=== PATIENT | male | born 1965 | race Caucasian/White ===

== ENCOUNTER 2019-04-14 20:18 | Emergency (ER) | payer OTHER ==
[~2019-04-14] VITALS: Ht 170.2 cm; Wt 158.8 kg
--- OUTSIDE RECORDS SUMMARY | ~2019-04-14 | XMS | Clinical Summary ---
Demographics + + + | Address | [address] | | | [place] [address] | + + + | Home Phone | | + + + | Preferred Language | Unknown | + + + | Marital Status | Single | + + + | Moravian Affiliation | 1028 | + + + | Race | Unknown | + + + | Ethnic Group | Unknown | + + + Author + + + | Author | [facility] | | | and [place] | + + + | Organization | [facility] | | | and [place] | + + + | Address | Unknown | + + + | Phone | Unavailable | + + + Support + + +---------+ + | Name | Relationship | Address | Phone | + + +---------+ + | Guadalupe Garner | ECON | Unknown | | + + +---------+ + Care Team Providers + +------+ + | Care It Infrastructure Specialist Name | Role | Phone | + +------+ + | No, Physician | PP | Unavailable | + +------+ + Allergies No Known Allergies Medications + + + +---------+------+------+-------+ | Medication | Sig | Dispensed | Refills | Star | End | Statu | | | | | | t | Date | s | | | | | | Date | | | + + + +---------+------+------+-------+ | | Take 1 tablet by | 25 | 0 | 10/0 | | Activ | | HYDROcodone-acetamin | mouth every 4 hours | tablet | | 5/20 | | e | | ophen (NORCO) 5-325 | as needed. | | | 16 | | | | mg per tablet | | | | | | | + + + +---------+------+------+-------+ | amoxicillin | Take 500 mg by mouth | | 0 | | | Activ | | (AMOXIL) 500 MG | 3 times daily. | | | | | e | | capsule | | | | | | | + + + +---------+------+------+-------+ Active Problems + + + | Problem | Noted Date | + + + | Preventative health care | 08/10/2016 | + + + + + | Overview: PSA DATE RESULTS | | 08/09/16 0.322 | + + + + + | Ureteral calculus, right | 07/27/2016 | + + + | Hydronephrosis, right | 07/27/2016 | + + + | Renal colic on right side | 07/27/2016 | + + + | H/O Kidney stones | 07/27/2016 | + + + | BMI 50.0-59.9 | 07/27/2016 | + + + | Class IV, BMI 50-59 | 07/27/2016 | + + + | Smoker - Daily | 07/27/2016 | + + + | MEHUL (obstructive sleep apnea) | | + + + | PPD positive | | + + + + + | Overview: INH for 6 months | + + +---------+---+ | Smoking | | +---------+---+ Family History + + +------+ + | Medical History | Relation | Name | Comments | + + +------+ + | Prostate cancer | Father | | | + + +------+ + | Hypertension | Mother | | | + + +------+ + | Gallstones | Sister | | | + + +------+ + | Other (see comment) | Sister | | esophageal atresia at corrected | + + +------+ + | Gallstones | Sister | | | + + +------+ + + +------+--------+ + | Relation | Name | Status | Comments | + +------+--------+ + | Brother | | Alive | | + +------+--------+ + | Daughter | | Alive | | + +------+--------+ + | Father | | Alive | | + +------+--------+ + | Mother | | Alive | | + +------+--------+ + | Sister | | Alive | | + +------+--------+ + | Sister | | Alive | | + +------+--------+ + | Son | | Alive | | + +------+--------+ + Social History + + + +--------+ [...] + +---------+ + | Alcohol Use | Drinks/We | oz/Week | Comments | | | ek | | | + + +---------+ + | No | 0 | 0.0 | | | | Standard | | | | | drinks or | | | | | | | | | | equivalen | | | | | t | | | + + +---------+ + + + + | Sex Assigned at | Date Recorded | | | | + + + | Not on file | | + + + + + + + | Job Start Date | Occupation | Industry | + + + + | Not on file | Not on file | Not on file | + + + + + + + + | Travel History | Travel Start | Travel End | + + + + + + | No recent travel history available. | + + Last Filed Vital Signs + + + + | Vital Sign | Reading | Time Taken | + + + + | Blood Pressure | 148/92 | 01/06/20175 PST | + + + + | Pulse | 105 | 01/06/20175 PST | + + + + | Temperature | 36.4 C (97.5 F) | 08/11/2016 164 PDT | + + + + | Respiratory Rate | 18 | 01/06/20171354 PST | + + + + | Oxygen Saturation | 95% | 01/06/20171354 PST | + + + + | Inhaled Oxygen | - | - | | Concentration | | | + + + + | Weight | 153 kg (337 lb 6.4 | 01/06/20171354 PST | | | oz) | | + + + + | Height | 167.6 cm (5' 6") | 01/06/20171354 PST | + + + + | Body Mass Index | 54.46 | 01/06/2017 1355 PST | + + + + Plan of Treatment + + + + + | Health Maintenance | Due Date | Last Done | Comments | + + + + + | Vaccine: | | | | | Dtap/Tdap/Td (1 - | 4 | | | | Tdap) | | | | + + + + + | Vaccine: Zoster (1 | | | | | of 2) | 5 | | | + + + + + | Vaccine: Influenza | | | | | (Season Ended) | 9 | | | + + + + + Implants + +-------+------+ +--------+--------+--------+ | Implanted | Type | Area | Manufacture | Device | Shelf | Model | | | | | r | | Expira | / | | | | | | Identi | tion | Serial | | | | | | fier | Date | / Lot | + +-------+------+ +--------+--------+--------+ | Stent Uro Unvrs Sft 6fr 28cm | Stent | | [place] | | 06/11/ | [id number] | | - [id number]: Qty: 1 | | | [employer] | | 2018 | / | | on 07/28/2016 by Claudette, | | | - [place] | | | /[id number] | | Andrae Simms MD | | | | | | 63 | + +-------+------+ +--------+--------+--------+ Results Not on filefrom Last 3 Months Insurance + +--------+ +--------+ +---------+--------+ | Payer | Benefi | Subscriber | Effect | Phone | Address | Type | | | t Plan | ID | tee | | | | | | / | | Dates | | | | | | Group | | | | | | + +--------+ +--------+ +---------+--------+ | [employer] | [employer] | [id number] | 01/06/20 | [phone] | | Medica | | MEDICAID HMO | HEALTH | | 16-Pre | 1 | | id | | | MDCD | | sent | | | | | | HMO [place] | | | | | | + +--------+ +--------+ +---------+--------+ + +--------+ +--------+ + + | Guarantor Name | Accoun | Relation to | Date | Phone | Billing Address | | | t Type | Patient | of | | | | | | | | | | + +--------+ +--------+ + + | Hemant Isidro | Person | Self | [birth year] | [address] | jahaira/Mark | | 1965 | [phone] | [place] [address] | | | joshua | | | 1 (Home) | | + +--------+ +--------+ + + Advance Directives Patient has advance care planning documents, and code status on file. For more information, please contact:[facility] [place] [address] + + + + + | Code Status | Date | Date | Comments | | | Activated | Inactivated | | + + + + + | Full Code | 08/11/2016 | 08/11/2016 | | | | 18:13 | 21:27 | | + + + + + + + + +---+ | | | | | + + + +---+ | Full Code | 07/27/2016 | 07/28/2016 | | | | 17:16 | 18:58 | | + + + +---+
--- OUTSIDE RECORDS SUMMARY | ~2019-04-14 | XMS | Clinical Summary ---
Demographics + + + | Address | [address] | | | [place] [address] | + + + | Home Phone | | + + + | Preferred Language | Unknown | + + + | Marital Status | Single | + + + | Latter-Day Affiliation | 1028 | + + + | Race | Unknown | + + + | Ethnic Group | Unknown | + + + Author + + + | Author | [facility] | | | and [place] | + + + | Organization | [facility] | | | and [place] | [...] Team Providers + +------+ + | Care Bus Repair Supervisor Name | Role | Phone | + [...] | | [place] | | 06/11/ | [id number] | | - [id number]: Qty: 1 | | | [employer] | | 2018 | / | | on 07/28/2016 by Claudette, | | | - [place] | | | /[id number] | | Andrae Simms MD | | [...] | [employer] | MODA | [id number] | 01/06/20 | [phone] | | Medica [...] | | 1965 | [phone] | [place] [address] | | | joshua | | | 1 (Home) | | + +--------+ +--------+ + + Advance Directives Patient has advance care planning documents, and code status on file. For more information, please contact:[facility] [place] [address] + + + + + | Code [...]
[2019-04-14] MEDS ORDERED: BACTRIM DS TAB1 EACH PO (20:41)
== END 2019-04-14 20:50 | disposition home or self-care (01) ==
LOC: ED 20:18
DX: L03.311 Cellulitis of abdominal wall (principal); Z87.442 Personal history of urinary calculi; F17.200 Nicotine dependence, unspecified, uncomplicated
CPT/HCPCS: 99283

== ENCOUNTER 2020-07-21 05:35 | Day surgery (SDC) | payer OTHER ==
--- NOTE | 2020-07-18 17:08 | NUR ---
DR. CARIAS NOTIFIED OF PT'S URINE CULTURE SAYING IT WAS LIKELY CONTAMINATING LOS. DR. CARIAS DOES NOT WANT A REPEAT URINE SAMPLE. NO NEW ORDERS.
[~2020-07-21] VITALS: Ht 170.2 cm; Wt 140.2 kg
[~2020-07-21 05:35] MED LIST: ASPIRIN81 MG PO; BACTRIM DS TAB1 EACH PO; CLOBETASOL PROP15 GM TOP; VENTOLIN HFA18 GM INH
--- NOTE | 2020-07-21 09:10 | NUR ---
07/21/20 0910 Doris Medeiros 0849 PT ARRIVED TO PACU WITH ORAL AIRWAY IN PLACE AND 6L VIA MASK IN PLACE. VSS. COURSE AIRWAY SOUND NOTED, RESP EVEN AND UNLABORED. PT NONAROUSABLE TO PAINFUL STIMULI 0902 PT WOKE TO PAINFUL STIMULI AND ORAL AIRWAY REMOVED, PT ENCOURAGED TO COUGH AND ABLE TO DO SO, PT CLEARED COURSE SOUND AND DENIES SOB. 0908 PT WAKES AND O2 MASK REMOVED. PT DENIES NAUSEA AND PAIN AND IS REORIENTED TO PACU. 0910 PT O2 SAT DECREASED TO 88% WHILE ASLEEP WITH SNORING. PT WAKES AND 2L NC PLACED, RN ENCOURAGES DEEP BREATHING AND COUGHING. O2 INCREASED TO MID 90S.
--- NOTE | 2020-07-21 09:26 | NUR ---
PT ARRIVES BACK TO DS RM 5 FROM PACU AWAKE AND ALERT. PT DENIES ANY NAUSEA AND RATES "DISCOMFORT" 2/10. PT STATES BEING HUNGRY, PROVIDED JELLO, CRACKERS AND ICED WATER. CALL LIGHT WITHIN REACH. DC CRITERIA EXPLAINED TO PT.
--- NOTE | 2020-07-21 09:35 | NUR ---
PT USES CALL LIGHT TO NOTIFY RN OF URGE TO VOID. PT SITS AT SIDE OF BED PRIOR TO STANDING, DENIES DIZZINESS OR NAUSEA. PT HAS STEADY GAIT TO BATHROOM, ABLE TO VOID QS WITH NO PROBLEMS. PT STATES "SOME STINGING" AFTER VOID, PROVIDED WET WIPES AND PERICARE PERFORMED. PT BACK IN BED, DECLINES SCD'S AND IS ENCOURAGED TO PUMP FEET. SANDWICH AND FRUIT DELIVERED, ICED WATER REFILLED AT THIS TIME. CALL LIGHT WITHIN REACH.
--- NOTE | 2020-07-21 09:45 | NUR ---
0945: PT TOLERATES 100% OF LUNCH WITHOUT NAUSEA. DC CRITERIA MET AT THIS TIME, PT SISTER NOTIFIED FOR SAFE RIDE HOME. PT DRESSES SELF. DC INSTRUCTIONS GIVEN, ALL QUESTIONS ADDRESSED. PAIN PRESCRIPTION PROVIDED IN DC PACKET. PT DC VIA WC TO SISTER AT [facility] ENTRANCE TO HOME.
[2020-07-21] MEDS ORDERED: PERCOCET 5-3251 EACH PO (10:16)
[2020-07-21] MEDS ORDERED: BACTRIM DS TAB1 EACH PO (10:16)
--- NOTE | 2020-07-22 10:43 | OR ---
[facility] [address] [place] [id number] Signed DATE OF OPERATION: 07/21/2020 SURGEON: Josue Carias MD DATE OF PROCEDURE: 07/21/2020 PREOPERATIVE DIAGNOSIS: Phimosis. POSTOPERATIVE DIAGNOSIS: Phimosis. NAME OF PROCEDURES: 1. Dorsal slit. 2. Circumcision revision. ANESTHESIA: General. ESTIMATED BLOOD LOSS: Minimal. COMPLICATIONS: None. SPECIMENS: None. DRAINS: None. INDICATIONS FOR PROCEDURE: Hemant is a very pleasant 55-year-old gentleman, who presented to me earlier this year with complaints of inability to retract the foreskin over his penis. He had also noticed changes to the head of the penis and it was seeking intervention. He was initially treated with topical clobetasol for lichen sclerosis, which mostly resolved quite nicely. He now presents today to undergo the second phase of his treatment, which is management of the phimosis. After discussing the risks and benefits of the procedure, the patient has presented today to undergo a dorsal slit procedure with or Electronically Signed By: JOSUE CARIAS MD 07/22/20 1043 PATIENT NAME: HEMANT WATTS OPERATIVE REPORT DATE OF : 65 REPORT #: [id number] PHYSICIAN: JOSUE CARIAS MD PCP: LEANDRO QUEVEDO REPORT IS CONFIDENTIAL AND NOT TO BE RELEASED WITHOUT AUTHORIZATION [address] [place], [place] [address] Signed without circumcision. OPERATIVE FINDINGS: 1. Inspection of the external genitalia revealed testicles that are descended bilaterally and are without any intratesticular masses. His foreskin is phimotic, and I am only able to see the patient's urethral meatus. The lichen sclerosis has resolved quite nicely, and there was only just some mild erythema associated with the glans penis. 2. Incidentally noted is a 4-5 cm area of cellulitis associated with an ingrown hair in the lower abdomen. I do not appreciate any overt fluctuance, however, this does appear to be developing small abscess. 3. The phimotic foreskin was incised at the 12 o'clock position, releasing the penis below. The dorsal skin of the penis was then reapproximated with some minor difficulty given the patient's condition. DESCRIPTION OF PROCEDURE: After informed consent was obtained, the patient was taken back to the operating room. He was transferred from the [facility] to the operating room table, where general anesthesia was induced. He was placed in the supine position. His genitalia were prepped and draped in standard sterile fashion. A penile block was then administered of 10 mL of 1% lidocaine without epinephrine. Inspection of the patient's abdomen and genitalia were then performed, please see above findings. A straight hemostat was then placed and clamped at the 12 o'clock position for approximately 30 seconds. The foreskin tissue was then crushed at the 12 o'clock position. A straight hemostat was then used to incise the crushed tissue, this was done twice, at which time I was able to deliver the penis from the phimotic foreskin. Betadine was then used to prep the penile skin. The residual dorsal foreskin was then reapproximated at the dorsal portion of the penis. There was not any additional skin that required excision, in fact the skin was reapproximated with some mild difficulty due to lack of reserve skin in the area. The flaps were mobilized just very slightly in order to reapproximate the edges. The edges of the penile skin were reapproximated using 3-0 Vicryl in a simple interrupted fashion. A couple of the sutures bearing most of the tension of the reapproximation were reinforced. The area was then thoroughly irrigated and hemostasis was achieved and maintained using Bovie electrocautery. Once all the skin was reapproximated, bacitracin was applied to the wound and the procedure was terminated. The patient tolerated the procedure well without any complication. He will now be transferred to the Postanesthesia Care Unit in stable condition. DISPOSITION: I discussed the details of today's procedure with the patient's sister and answered all of her questions. I also told her of the presence of a developing abscess on the patient's lower abdomen that appeared to be associated with about 4-5 cm of an area of Electronically Signed By: JOSUE CARIAS MD 07/22/20 1043 PATIENT NAME: HEMANT WATTS OPERATIVE REPORT DATE OF : 65 REPORT #: [id number] PHYSICIAN: JOSUE CARIAS MD PCP: LEANDRO QUEVEDO REPORT IS CONFIDENTIAL AND NOT TO BE RELEASED WITHOUT AUTHORIZATION [address] [address] Signed cellulitis. He will be started today on Bactrim double strength for a total of 10 days. Hopefully this will help with this issue, however, I told the patient's sister that he will need to speak with his primary care physician in the next 2-3 days if this area does not improve on its own because it could potentially require incision and drainage. The patient's sister verbalized understanding this today. Also, explained to his sister that he needs to avoid any heavy physical or exertional activity for the next week. He may apply ice to the area for 20 minutes every 2 hours. He was also given Percocet 5/325, dispense #30 as needed for pain. He was scheduled return to clinic in approximately three weeks for his first postoperative evaluation. MD LON Moraes/LEFTY /[id number] cc: HUGH Traylor Copies: LEANDRO QUEVEDO ~ Electronically Signed By: JOSUE CARIAS MD 07/22/20 1043 PATIENT NAME: HEMANT WATTS OPERATIVE REPORT DATE OF : 65 REPORT #: [id number] PHYSICIAN: JOSUE CARIAS MD PCP: LEANDRO QUEVEDO REPORT IS CONFIDENTIAL AND NOT TO BE RELEASED WITHOUT AUTHORIZATION
== END 2020-07-21 10:55 | disposition home or self-care (01) ==
LOC: DS 05:35
PROVIDERS: ATTEND Urology
PROC: 0VTTXZZ Resection of Prepuce, External Approach (ICD-10-PCS; principal; 2020-07-21 06:45)
DX: N47.1 Phimosis (principal); J44.9 Chronic obstructive pulmonary disease, unspecified; F32.9 Major depressive disorder, single episode, unspecified; G47.33 Obstructive sleep apnea (adult) (pediatric); F17.210 Nicotine dependence, cigarettes, uncomplicated; Z79.899 Other long term (current) drug therapy; Z79.82 Long term (current) use of aspirin
CPT/HCPCS: 94640; J0696; J1100; J1885; J2001; J2405; J2704; J3010; J7121

== ENCOUNTER 2020-08-27 16:17 | Emergency (ER) | payer OTHER ==
[~2020-08-27] VITALS: Ht 170.2 cm; Wt 140.2 kg
--- OUTSIDE RECORDS SUMMARY | ~2020-08-27 | XMS | Encounter Summary ---
Demographics + + + | Address | [address] | | | [place] [address] | + + + | Home Phone | | + + + | Preferred Language | Unknown | + + + | Marital Status | Single | + + + | Shinto Affiliation | 1028 | + + + | Race | White | + + + | Ethnic Group | Not or | + + + Author + + + | Author | [facility] | | | and [place] | + + + | Organization | [facility] | | | and [place] | + + + | Address | Unknown | + + + | Phone | Unavailable | + + + Support + + +---------+ + | Name | Relationship | Address | Phone | + + +---------+ + | Guadalupe Garner | ECON | Unknown | | + + +---------+ + Care Team Providers + +------+ + | Care Agronomy Teacher Name | Role | Phone | + +------+ + | No, Physician | PCP | Unavailable | + +------+ + Reason for Visit Auth/Cert +--------+--------+ + + + + | Status | Reason | Specialty | Diagnoses / | Referred By | Referred To | | | | | Procedures | Contact | Contact | +--------+--------+ + + + + | | | | Diagnoses | | | | | | | Calculus of | | | | | | | distal | | | | | | | right ureter | | | | | | | Calculus | | | | | | | of distal | | | | | | | right ureter | | | | | | | [N20.1] | | | | | | | Procedures | | | | | | | SC | | | | | | | CYSTO/URETER | | | | | | | O | | | | | | | W/LITHOTRIPS | | | | | | | Y &ITZEL | | | | | | | STENT INSRT | | | | | | | CYSTOSCOPY | | | | | | | URETEROSCOPY | | | | | | | W/ LASER | | | +--------+--------+ + + + + Encounter Details +--------+ + + + + | Date | Type | Department | Care Team | Description | +--------+ + + + + | 08/11/ | Hospital | [facility] | Andrae Wilkins, | | | 2016 | Encounter | MED [facility] XRAY [address] | MD Cornelio WHITFIELD | | | | | [place] | [place] | | | | | [place] [id number] | [id number] | | | | | [phone] | | | +--------+ + + + + Social History + + + +--------+ + | Tobacco Use | Types | Packs/Day | Years | Date | | | | | Used | | + + + +--------+ + | Current Every Day | Cigarettes | 1 | | Started: 07/27/1980 | | Smoker | | | | | + + + +--------+ + + +---+---+---+ | Smokeless Tobacco: | | | | | Never Used | | | | + +---+---+---+ + + +---------+ + | Alcohol Use | Drinks/Week | oz/Week | Comments | + + +---------+ + | No | 0 Standard drinks | 0.0 | | | | or equivalent | | | + + +---------+ + + + + | Sex Assigned at | Date Recorded | | | | + + + | Not on file | | + + + documented as of this encounter Functional Status + + + + | Functional Status | Response | Date of Assessment | + + + + | Are you deaf or do you have serious | No | 07/28/2016 | | difficulty hearing? | | | + + + + | Are you blind or do you have serious | No | 07/28/2016 | | difficulty seeing, even when wearing | | | | glasses? | | | + + + + | Do you have serious difficulty walking or | No | 07/28/2016 | | climbing stairs? (5 years old or older) | | | + + + + | Do you have difficulty dressing or bathing? | No | 07/28/2016 | | (5 years old or older) | | | + + + + | Because of a physical, mental, or emotional | No | 07/28/2016 | | condition, do you have difficulty doing | | | | errands alone such as visiting a doctor's | | | | office or shopping? [15 years old or | | | | older)] | | | + + + + + + + + | Cognitive Status | Response | Date of Assessment | + + + + | Because of a physical, mental, or emotional | No | 07/28/2016 | | condition, do you have serious difficulty | | | | concentrating, remembering, or making | | | | decisions? (5 years old or older) | | | + + + + documented as of this encounter Medications at Time of Discharge + + + +---------+ + + | Medication | Sig | Dispensed | Refills | Start | End Date | | | | | | Date | | + + + +---------+ + + | | Take 1 tablet by | 25 | 0 | 10/05/20 | | | HYDROcodone-acetamin | mouth every 4 hours | tablet | | 16 | | | ophen (NORCO) 5-325 | as needed. | | | | | | mg per tablet | | | | | | + + + +---------+ + + | | Take 1 tablet by | 8 | 0 | 08/11/20 | | | sulfamethoxazole-tri | mouth 2 times daily | tablet | | 16 | 6 | | methoprim (BACTRIM | for 4 days. | | | | | | DS) 800-160 mg per | | | | | | | tablet | | | | | | + + + +---------+ + + documented as of this encounter Plan of Treatment Not on filedocumented as of this encounter Procedures + +--------+ + + + | Procedure Name | Priori | Date/Time | Associated Diagnosis | Comments | | | ty | | | | + +--------+ + + + | FL PYELOGRAM | Routin | 08/11/2016 | | Results for this | | RETROGRADE | e | 5:47 PM | | procedure are in the | | | | PDT | | results section. | + +--------+ + + + documented in this encounter Results FL Pyelogram Retrograde (08/11/2016 5:47 PM PDT) + + | Specimen | + + | | + + + + + | Narrative | Performed At | + + + | EXAM: FL PYELOGRAM RETROGRADE HISTORY: intra op | [facility] | | COMPARISON: None. TECHNIQUE: Review of 2 digital intraoperative | | | spot images obtained during retrograde pyelogram by Dr. Cordero. | | | FINDINGS: Images demonstrate cannulation of the right ureter. Please | | | see operative report for further details. A total of 21 seconds | | | of fluoroscopy time was used during the procedure. IMPRESSION - | | | Review of intraoperative digital spot images as noted above. Please | | | see operative report for further details. CRITICAL VALUE: No | | | Dictated and Signed by: Arsalan Olmedo MD Electronically signed: | | | 08/12/2016 8:55 AM | | + + + + + | Procedure Note | + + | Chris, Rad Results In - 08/12/2016 8:58 AM PDT EXAM: FL PYELOGRAM RETROGRADE | | | | HISTORY: intra op | | | | COMPARISON: None. | | | | TECHNIQUE: Review of 2 digital intraoperative spot images obtained during | | retrograde pyelogram by Dr. Cordero. | | | | FINDINGS: | | Images demonstrate cannulation of the right ureter. Please see operative report | | for further details. | | | | A total of 21 seconds of fluoroscopy time was used during the procedure. | | | | IMPRESSION - | | Review of intraoperative digital spot images as noted above. Please see | | operative report for further details. | | | | CRITICAL VALUE: No | | | | Dictated and Signed by: Arsalan Olmedo MD | | Electronically signed: 08/12/2016 8:55 AM | + + + +---------+ + + | Performing | Address | City/State/Zipcode | Phone Number | | Organization | | | | + +---------+ + + | [facility] | | | | + +---------+ + + documented in this encounter Visit Diagnoses Not on filedocumented in this encounter"
--- OUTSIDE RECORDS SUMMARY | ~2020-08-27 | XMS | Encounter Summary ---
Demographics + + + | Address | [address] | | | [place] [address] | + + + | Home Phone | | + + + | Preferred Language | Unknown | + + + | Marital Status | Single | + + + | Uatsdin Affiliation | 1028 | + + + | Race | White | + + + | Ethnic Group | Not or | + + + Author + + + | Author | [facility] | | | and [place] | + + + | Organization | [facility] | | | [...] Team Providers + +------+ + | Care Toy Mechanic Name | Role | Phone | + +------+ + | No, Physician | PCP | Unavailable | + +------+ + Reason for Referral Evaluate & Treat (Routine) +--------+ + + + + + | Status | Reason | Specialty | Diagnoses / | Referred By | Referred To | | | | | Procedures | Contact | Contact | +--------+ + + + + + | Closed | Specialty | Urology | Diagnoses | Claudette, | Claudette, | | | Services | | Right | Andrae Simms MD | Andrae Simms MD | | | Required | | ureteral | [address] | [address] | | | | | calculus | [address]VE [place] | [place] | | | | | Procedures | [place] | [place] | | | | | [place] | [address] | [address] Phone: | | | | | CYSTO/URETER | Phone: | [phone] | | | | | O | [phone] | Fax: | | | | | W/LITHOTRIPS | Fax: | [phone] | | | | | Y &INDWELL | [phone] | | | | | | STENT INSRT | | | +--------+ + + + + + Reason for Visit +--------+--------+ + | Reason | Onset | Comments | | | Date | | +--------+--------+ + | Other | 07/30/ | Schedule surgery | | | 2015 | | +--------+--------+ + Encounter Details +--------+ + + + + | Date | Type | Department | Care Team | Description | +--------+ + + + + | 07/30/ | Telephone | [facility] | Andrae Wilkins, | Other (Schedule | | 2016 | | [address] | MD [address] | surgery) | | | | [place], [place] | [place] | | | | | [address] | [address] | | | | | [phone] | | | +--------+ + + + [...] + + documented as of this encounter Miscellaneous Notes Telephone Encounter - Cassi Toledo RN - 07/30/2016 8:51 AM PDTPatient scheduled for surgery on 08/11/16 with a pre-op on 08/02/16. documented in this encounter Plan of Treatment + + +--------+ + + | Name | Type | Priori | Associated Diagnoses | Order Schedule | | | | ty | | | + + +--------+ + + | Ambulatory referral | Outpatient | Routin | Right ureteral | Expected: | | to Urology | Referral | e | calculus | 08/11/2016, Expires: | | | | | | 08/18/2016 | + + +--------+ + + documented as of this encounter Results XR Abdomen AP (08/02/2016 9:09 AM PDT) + + | Specimen | + + | | + + + + + | Narrative | Performed At | + + + | EXAM: XR ABDOMEN 1 VW HISTORY: Right ureteral calculus | [facility] | | TECHNIQUE: Supine view of the abdomen COMPARISON: 07/28/2016 | [facility] | | FINDINGS: Interval placement of right ureteral stent in expected | [facility] | | position. Stable position of proximal right ureteral calculus. | - IMAGING | | Nonspecific, nonobstructive bowel gas pattern. No abnormal | | | calcifications. No acute osseous abnormalities. IMPRESSION - 1. | | | Nonspecific, nonobstructive bowel gas pattern. 2. Interval | | | placement of right ureteral stent in expected position. Stable | | | position of proximal right ureteral calculus. CRITICAL VALUE: No | | | Dictated and Signed by: Arsalan Olmedo MD Electronically signed: | | | 08/02/2016 9:49 AM | | + + + + + | Procedure Note | + + | Chris, Rad Results In - 08/02/2016 7:05 PM PDT EXAM: XR ABDOMEN 1 VW | | | | HISTORY: Right ureteral calculus | | | | TECHNIQUE: Supine view of the abdomen | | | | COMPARISON: 07/28/2016 | | | | FINDINGS: | | Interval placement of right ureteral stent in expected position. Stable position | | of proximal right ureteral calculus. | | Nonspecific, nonobstructive bowel gas pattern. No abnormal calcifications. | | No acute osseous abnormalities. | | | | IMPRESSION - | | 1. Nonspecific, nonobstructive bowel gas pattern. | | 2. Interval placement of right ureteral stent in expected position. Stable | | position of proximal right ureteral calculus. | | | | CRITICAL VALUE: No | | | | Dictated and Signed by: Arsalan Olmedo MD | | Electronically signed: 08/02/2016 9:49 AM | + + + + + + + | Performing | Address | City/State/Zipcode | Phone Number | | Organization | | | | + + + + + | [facility] | [address] | [place] | [phone] | | [facility] | | [address] | | | - IMAGING | | | | + + + + + documented in this encounter Visit Diagnoses + + | Diagnosis | + + | Right ureteral calculus - Primary Calculus of ureter | + + documented in this encounter"
--- OUTSIDE RECORDS SUMMARY | ~2020-08-27 | XMS | Encounter Summary ---
Demographics + + + | Address | [address] | | | [place] [address] | + + + | Home Phone | | + + + | Preferred Language | Unknown | + + + | Marital Status | Single | + + + | Muslim Affiliation | 1028 | + + + | Race | White | + + + | Ethnic Group | Not or | + + + Author + + + | Author | [facility] | | | and [place] | + + + | Organization | [facility] | | | [...] Team Providers + +------+ + | Care Screen Writer Name | Role | Phone | + +------+ + | No, Physician | PCP | Unavailable | + +------+ + Reason for Visit Evaluate & Treat (Routine) +--------+ + + + + + | Status | Reason | Specialty | Diagnoses / | Referred By | Referred To | | | | | Procedures | Contact | Contact | +--------+ + + + + + | Closed | Specialty | Sleep | Diagnoses | Ayesha, | Fredrick, | | | Services | Medicine | Nocturnal | Andrae Simms MD | Mitchell Kilgore | | | Required | | hypoxia | [address] | MD [address] | | | | | Procedures | [address] [place] | [facility] | | | | | 01/20> PEND | [place], [place] | [place] | | | | | RETRO | [address] | [place] | | | | | REFERRAL FOR | Phone: | [phone] Phone: | | | | | DOS | [phone] | [phone] | | | | | 01/06/17- | Fax: | Fax: | | | | | ELIANA / | [phone] | [phone] | | | | | AYESHA | | | | | | | OFFICE | | | | | | | NEEDS TO | | | | | | | REQUEST | | | +--------+ + + + + + Encounter Details +--------+---------+ + + + | Date | Type | Department | Care Team | Description | +--------+---------+ + + + | 11/16/ | Office | [facility] [place] [facility] | Mitchell Alcala | NO SHOW (Primary Dx) | | 2017 | Visit | SLEEP DISORDER [address] | MD [address] | | | | | [address] [place] | [address] [place] | | | | | [place] [address] | [place] [address] | | | | | [phone] | [phone] | | | | | | | | +--------+---------+ + + + Social History + + [...] + + documented as of this encounter Progress Notes Mitchell Alcala Jr., MD - 11/16/2016 8:36 AM PSTThis patient was a no-show for a 1 hour [facility] medicine consultation. He did not call to cancel and will not be rescheduled without r eferral from a primary care provider. documented in th is encounter Plan of Treatment Not on filedocumented as of this encounter Visit Diagnoses + + | Diagnosis | + + | No Show - Primary Code used for vists where the patient is not seen | + + documented in this encounter"
--- OUTSIDE RECORDS SUMMARY | ~2020-08-27 | XMS | Encounter Summary ---
Demographics + + + | Address | [address] | | | [place] [address] | + + + | Home Phone | | + + + | Preferred Language | Unknown | + + + | Marital Status | Single | + + + | Cheondoism Affiliation | [id number] | + + + | Race | White | + + + | Ethnic Group | Not or | + + + Author + + + | Author | [facility] | | | and [place] | + + + | Organization | [facility] | | | [...] Team Providers + +------+ + | Care Warehouse Selector Name | Role | Phone | + +------+ + | No, Physician | PCP | Unavailable | + +------+ + Reason for Visit + + + | Reason | Comments | + + + | Nephrolithiasis | | + + + Evaluate & Treat (Routine) +--------+--------+ + + + + | Status | Reason | Specialty | Diagnoses / | Referred By | Referred To | | | | | Procedures | Contact | Contact | +--------+--------+ + + + + | Closed | | Urology | Diagnoses | | [place], | | | | | Ureteral | Physicians-[facility] | Andrae Simms MD | | | | | stone NEW/R | [place], [place] | [address] | | | | | URETERAL | | [place] | | | | | STONE | | [place], [place] | | | | | Procedures | | [id number] Phone: | | | | | NEW PATIENT | | [phone] | | | | | | | Fax: | | | | | | | [phone] | +--------+--------+ + + + + Encounter Details +--------+---------+ + + + | Date | Type | Department | Care Team | Description | +--------+---------+ + + + | 08/02/ | Office | [facility] | Andrae Wilkins, | Right ureteral | | 2016 | Visit | [address] | [address] | calculus (Primary | | | | [place], [place] | [place], [place] | Dx); BMI 50.0-59.9, | | | | [address] | [id number] | adult (HCC); | | | | [phone] | | Nocturnal hypoxia | +--------+---------+ + + + Social History [...] + + documented as of this encounter Last Filed Vital Signs + + + + + | Vital Sign | Reading | Time Taken | Comments | + + + + + | Blood Pressure | 126/68 | 08/02/2016 10:06 AM | | | | | PDT | | + + + + + | Pulse | 80 | 08/02/2016 10:06 AM | | | | | PDT | | + + + + + | Temperature | - | - | | + + + + + | Respiratory Rate | 18 | 08/02/2016 10:06 AM | | | | | PDT | | + + + + + | Oxygen Saturation | - | - | | + + + + + | Inhaled Oxygen | - | - | | | Concentration | | | | + + + + + | Weight | 145.3 kg (320 lb 6.4 | 08/02/2016 10:06 AM | | | | oz) | PDT | | + + + + + | Height | - | - | | + + + + + | Body Mass Index | 50.18 | 07/27/2016 5:37 PM | | | | | PDT | | + + + + + documented in this encounter Functional Status + + + [...] + + documented as of this encounter Patient Instructions Patient Instructions Cassi Toledo RN - 08/02/2016 9:41 AM PDTPreoperative Instructi ons Your surgery with Dr. Andrae Wilkins has been scheduled for August 11, 2016 at 1:00 PM at [facility]. [facility] no later than 11:30 AM. REMEMBER: NOTHING TO EAT OR DRINK AFTER MIDNIGHT August 10, 2016 except with a sip of water. NO ASPIRIN OR ASPIRIN PRODUCTS ONE WEEK PRIOR TO SURGERY. Tylenol and Advil are OK. You will need to get the following testing done prior to surgery: CBC, BMP, UA Call us at [phone] with any questions. [x] Pain management booklet provided to patient. documented in this encounter Progress Notes Andrae Wilkins MD - 08/02/2016 9:40 AM PDTFormatting of this note might be different fro m the original. Hemant is a 51 y.o. male patient being seen today for follow up of kidney stones. CC: 7 mm proximal right ureteral calculus HPI: Hemant experienced right renal colic on 07/25/2016. He was eventually evaluated at [facility] where CT imaging demonstrated a 7 mm stone in the proximal right ureter at the UPJ with hydronephrosis. He underwent cystoscopy with right ureteral stent placement o n 07/28/2016. During this hospitalization, he was noted to have nocturnal hypoxemia with O2 sats of appro ximately 84% while sleeping on room air. I prescribed oxygen at discharge, but he reports t hat his insurance would not pay for it, since the prescription did not come from a primary c are provider. He reports that he has not had any renal colic since his discharge. He has mild discomfort associated with his ureteral stent, and mild irritative voiding symptoms, but he has not nguyen d recurrence of his renal colic. He denies any fever or chills or nausea or vomiting. He states that he had a "cold" with r hinorrhea last week, but denies a sore throat or shortness breath or cough or hemoptysis. He reports a prior history of a kidney stone which passed spontaneously about 15 years ago. He reports that his postoperative dysuria and hematuria has resolved. He denies any urinar y tract infections. He denies any changes in his bowel habits. He denies any hematochezia or melena. He reports a 7 pound weight loss in the past 2 weeks, otherwise, 10 point review of systems is negative. Over 25 minute encounter with Hemant today, over 50% of this time spent counseling regarding his large proximal right ureteral calculus, and treatment options available for his stone, including medical and surgical options, including nontreatment, and dietary recommendations to reduce his risk of stones. Past Medical History He has a past medical history of High cholesterol and Kidney stones. Past Surgical History He has past surgical history that includes Cystoscopy Insertion/Removal Stent/Stone (Right, 07/28/2016). Family History: His family history includes Gallstones in his sister and sister; Hypertension in his mother ; Prostate cancer in his father. Social History: He reports that he has been smoking Cigarettes. He started smoking about 36 years ago. He has been smoking about 1.00 pack per day. He has never used smokeless tobacco. He reports th at he uses illicit drugs (Marijuana). He reports that he does not drink alcohol. No Known Allergies Medications: Outpatient Encounter Prescriptions as of 08/02/2016 Medication Sig Dispense Refill HYDROcodone-acetaminophen (NORCO) 5-325 mg per tablet Take 1-2 tablets by mouth every 4 hours as needed for Pain (Pain). 25 tablet 0 No facility-administered encounter medications on file as of 08/02/2016. PHYSICAL EXAM Vitals: BP 126/68 mmHg | Pulse 80 | Resp 18 | Wt 145.332 kg (320 lb 6.4 oz) General: Awake, alert, in no acute distress. Speech is fluent. Appears to be stated age. Cheerful, smiles readily. Neck: Supple; no lymphadenopathy. HENT: Atraumatic, external ears normal, nose normal, oropharynx moist, no pharyngeal exudat es. Lungs: Mildly tachypneic with exertion. Clear to auscultation bilaterally. Heart: Normal rate, normal rhythm, no murmurs, no gallops, no rubs. Chest: No rib or bony tenderness. Back: No CVA tenderness. Abdomen: Soft, nontender, nondistended, morbidly obese, bowel tones normal active, no hepa tosplenomegaly. No masses, but examination markedly limited by his girth. No guarding; olesya gn. Bladder nondistended. Large pannus, with vitiligo changes. Extremities: Trace ankle edema bilaterally. Hips and long bones nontender to fist percussi on. Neuro: Awake, alert, oriented x3. Normal station and slow gait. Psychiatric: Mood and affect are normal. Normal judgment. Skin: Warm and dry, no erythematous rash. Genitalia: Penis is obscured by a large suprapubic fat pad. Severe scarring of the foresk in, with phimosis. Foreskin appears chronically inflamed. Vitiligo changes of scrotum. No testicular or epididymal masses or nodules or lesion or tenderness. DIAGNOSTIC DATA: CT imaging 07/27/2016 from [facility] demonstrates a 7.4 millimeter stone at the right UPJ with mild right hydronephrosis. No additional renal or ureteral calculi are visualized on either side. CBC 07/27/2016 shows WBC 10.1, hemoglobin 14.6, hematocrit 46.9, platelets 310. Chemistry panel 07/27/2016 demonstrates creatinine 0.93, BUN 14, potassium 3.9, sodium 137, chloride 104, CO2 25, calcium 9.2, normal liver function testing. Urinalysis 07/27/2016 shows 30 RBC, 15 WBC, no epithelial cells, 1+ bacteria. KUB 08/02/2016. (no radiology report yet. Image shown to patient) Lab Results Component Value Date CREA 1.03 08/02/2016 BUN 18 08/02/2016 NA 135* 08/02/2016 K 4.6 08/02/2016 CL 100 08/02/2016 CO2 26 08/02/2016 Lab Results Component Value Date CALCIUM 9.7 08/02/2016 EKG 07/28/2016: Normal sinus rhythm Incomplete right bundle branch block Borderline ECG No previous ECGs available Confirmed by JOE BAKER, GREGORIA ([id number]) on 07/28/2016 9:32:23 AM IMPRESSION: 1. 7.4 mm proximal right ureteral calculus. 2. Right hydronephrosis. 3. Status post right ureteral stent placement 07/28/2016. 4. Morbid obesity. 5. Postcircumcision phimotic foreskin deformity. 6. Nocturnal hypoxia. Sleep apnea is strongly suspected. 7. Incomplete right bundle branch block. PLAN: Oxygen for use at home at night was prescribed at his discharge, but he tells me that his i nsurance would not approve it since the prescription did not come from a primary care provid er. He needs a referral to the sleep center for a sleep consultation and sleep study. Please i nitiate referral. Obtain final urine culture testing results from [facility] 07/27/2016. I emphasized to Hemant that he absolutely must establish care with a primary care provider A [facility] for routine health maintenance. Weight loss is again strongly encouraged. I gave Hemant a pamphlet describing kidney stones and treatment options available, and we re viewed this again together. His body mass index is much too robust to allow PCNL or ESWL. We discussed performing ureteroscopy with laser lithotripsy. I gave Hemant a pamphlet describing kidney stones and the various treatment options availabl e, which we reviewed together. We discussed performing ESWL vs ureteroscopy with laser lith otripsy vs PCNL (percutaneous nephrostolithotomy) vs seeking a second opinion vs doing nothi ng. After a lengthy discussion, he elects to proceed with ureteroscopy with laser lithotripsy. The risks, benefits, and alternatives of cystoscopy, and right ureteroscopy with laser lith otripsy (and possible stone extraction), and right ureteral stent replacement are discussed with Hemant in detail. I told him that this procedure may not render him stone free, necess itating additional procedures in the future. Risks are to include, but are not limited to bleeding, pain, infection, failure of the proc edure, inability to retrieve or remove or fragment the stone, failure to diagnose, ureteral injury, ureteral perforation, ureteral avulsion with its severe sequelae of damage to the ki dney or need for subsequent surgical corrective procedures, and even potential loss of the k idney, potential need for additional procedures, inherent irritability and discomfort associ ated with a ureteral stent, inherent risks of any surgical procedure and anesthesia includin g DVT, PE, OR, CVA, and even . Hemant indicates his understanding, and indicates a desire to proceed as outlined. No guara ntees are given or implied. A surgical date is chosen. Hemant is given appropriate written and verbal preoperative instr uctions. I asked Hemant to notify me if there were any difficulties voiding, or UTI symptoms, or flan k pain, or for any questions or concerns whatsoever. I implored him to establish care with a PCP [facility]. We discussed the adverse sequelae associ ated with untreated sleep apnea. This document was generated in part using voice recognition software. Although I have atte mpted to edit the content, I have not thoroughly proofread this note, and metal bench patternmaker erro rs may occur. documented in this en counter Plan of Treatment Not on filedocumented as of this encounter Procedures + +--------+ + + + | Procedure Name | Priori | Date/Time | Associated Diagnosis | Comments | | | ty | | | | + +--------+ + + + | LABS - EXTERNAL SCAN | | 08/09/2016 | | Results for this | | | | 12:00 AM | | procedure are in the | | | | PDT | | results section. | + +--------+ + + + | LABS - EXTERNAL SCAN | | 07/30/2016 | | Results for this | | | | 12:00 AM | | procedure are in the | | | | PDT | | results section. | + +--------+ + + + | IMAGING REPORT - | | 07/27/2016 | | Results for this | | EXTERNAL SCAN | | 12:00 AM | | procedure are in the | | | | PDT | | results section. | + +--------+ + + + documented in this encounter Results LABS - EXTERNAL SCAN (08/09/2016 12:00 AM PDT) + + + | Narrative | Performed At | + + + | Ordered by an | | | unspecified provider. | | + + + Urinalysis, Reflex Microscopic and/or Culture (08/02/2016 11:46 AM PDT) + + + + + + | Component | Value | Ref Range | Performed | Pathologist | | | | | At | Signature | + + + + + + | Color, | Yellow | Light Yellow, | [facility] | | | Urine | | Yellow, Straw | [facility] | | | | | | [facility] | | | | | | [facility] - | | | | | | LABORATORY | | + + + + + + | Clarity, | Clear | Clear | [facility] | | | Urine | | | [facility] | | | | | | [facility] | | | | | | [facility] - | | | | | | LABORATORY | | + + + + + + | pH, Urine | 7.0 | 5.0 - 8.0 | [facility] | | | | | | [facility] | | | | | | [facility] | | | | | | [facility] - | | | | | | LABORATORY | | + + + + + + | Specific | 1.005 | 1.001 - 1.030 | [facility] | | | [place], | | | [facility] | | | Urine | | | MEDICAL | | | | | | CENTER - | | | | | | LABORATORY | | + + + + + + | Protein, | 30 mg/dL (A) | Negative | [facility] | | | Urine | | | [facility] | | | | | | [facility] | | | | | | CENTER - | | | | | | LABORATORY | | + + + + + + | Blood, | Trace (A) | Negative | [facility] | | | Urine | | | [facility] | | | | | | [facility] | | | | | | C[facility] - | | | | | | LABORATORY | | + + + + + + | Glucose, | Negative | Negative | [facility] | | | Urine | | | [facility] | | | | | | [facility] | | | | | | CENTER - | | | | | | LABORATORY | | + + + + + + | Ketones, | Negative | Negative | [facility] | | | Urine | | | [facility] | | | | | | [facility] | | | | | | [facility] - | | | | | | LABORATORY | | + + + + + + | Bilirubin, | Negative | Negative | [facility] | | | Urine | | | [facility] | | | | | | [facility] | | | | | | CENTER - | | | | | | LABORATORY | | + + + + + + | Nitrite, | Negative | Negative | [facility] | | | Urine | | | [facility] | | | | | | [facility] | | | | | | CENTER - | | | | | | LABORATORY | | + + + + + + | Leukocyte | Small (A) | Negative | [facility] | | | Esterase, | | | [facility] | | | Urine | | | MEDICAL | | | | | | CENTER - | | | | | | LABORATORY | | + + + + + + | Urobilinoge | Negative | 0.2 mg/dL, 1.0 | [facility] | | | n, Urine | | mg/dL, Negative | [facility] | | | | | | [facility] | | | | | | C[facility] - | | | | | | LABORATORY | | + + + + + + | White Blood | 2-5 (A) | 0 - 2 /HPF | [facility] | | | Cells, | | | [facility] | | | Urine | | | MEDICAL | | | | | | CENTER - | | | | | | LABORATORY | | + + + + + + | Red Blood | 15-25 (A) | 0 - 2 /HPF | [facility] | | | Cells, | | | [facility] | | | Urine | | | MEDICAL | | | | | | CENTER - | | | | | | LABORATORY | | + + + + + + | Budding | Few (A) | Negative | [facility] | | | Yeast, | | | [facility] | | | Urine | | | MEDICAL | | | | | | CENTER - | | | | | | LABORATORY | | + + + + + + | Urine | Urine Culture Set Up | | [facility] | | | Comment | | | [facility] | | | | | | [facility] | | | | | | C[facility] - | | | | | | LABORATORY | | + + + + + + + + | Specimen | + + | Urine - Urine | | specimen (specimen) | + + + + + | Narrative | Performed At | + + + | Microscopic performed on uncentrifuged urine due to low sample | [facility] | | volume | [facility] | | | [facility] | | | - LABORATORY | + + + + + + + + | Performing | Address | City/State/Zipcode | Phone Number | | Organization | | | | + + + + + | [facility] | [address] | [place] | [phone] | | [facility] | | [address] | | | - LABORATORY | | | | + + + + + Basic Metabolic Panel (08/02/2016 11:04 AM PDT) + + + + + + | Component | Value | Ref Range | Performed | Pathologist | | | | | At | Signature | + + + + + + | Na | 135 (L) | 136 - 149 | [facility] | | | | | mmol/L | [facility] | | | | | | [facility] | | | | | | CENTER - | | | | | | LABORATORY | | + + + + + + | K | 4.6 | 3.5 - 5.1 | [facility] | | | | | mmol/L | [facility] | | | | | | MEDICAL | | | | | | CENTER - | | | | | | LABORATORY | | + + + + + + | Cl | 100 | 98 - 109 mmol/L | [facility] | | | | | | [facility] | | | | | | MEDICAL | | | | | | CENTER - | | | | | | LABORATORY | | + + + + + + | CO2 | 26 | 24 - 31 mmol/L | [facility] | | | | | | [facility] | | | | | | [facility]ICAL | | | | | | CENTER - | | | | | | LABORATORY | | + + + + + + | Anion Gap | 9 | 3 - 16 mmol/L | [facility] | | | | | | [facility] | | | | | | [facility] | | | | | | CENTER - | | | | | | LABORATORY | | + + + + + + | Glucose | 93 | 70 - 109 mg/dL | [facility] | | | | | | [facility] | | | | | | [facility] | | | | | | CENTER - | | | | | | LABORATORY | | + + + + + + | BUN | 18 | 7 - 18 mg/dL | [facility] | | | | | | [facility] | | | | | | [facility] | | | | | | C[facility] - | | | | | | LABORATORY | | + + + + + + | Creatinine | 1.03 | 0.60 - 1.30 | [facility] | | | | | mg/dL | [facility] | | | | | | [facility] | | | | | | C[facility] - | | | | | | LABORATORY | | + + + + + + | eGFR, | >60Comment: GLOMERULAR | >=60 | [facility] | | | non- | FILTRATION | mL/min/1.73m2 | [facility] | | | [place] | RATE,ESTIMATED | | MEDICAL | | | | mL/min/1.66p7Ucej than | | CENTER - | | | | 60 Chronic kidney | | LABORATORY | | | | disease,if found over a | | | | | | 3-month period.Less than | | | | | | 15 Kidney failureFor | | | | | | | | | | | | Americans,multiply the | | | | | | calculated GFR by 1.21. | | | | | | | | | | + + + + + + | Calcium | 9.7 | 8.3 - 10.5 | [facility] | | | | | mg/dL | [facility] | | | | | | MEDICAL | | | | | | CENTER - | | | | | | LABORATORY | | + + + + + + | BUN/Creatin | 17.5 | | [facility] | | | ine Ratio | | | [facility] | | | | | | MEDICAL | | | | | | CENTER - | | | | | | LABORATORY | | + + + + + + + + | Specimen | + + | Blood | + + + + + + + | Performing | Address | City/State/Zipcode | Phone Number | | Organization | | | | + + + + + | [facility] | [address] | [place] | [phone] | | [facility] | | [address] | | | - LABORATORY | | | | + + + + + LABS - EXTERNAL SCAN (07/30/2016 12:00 AM PDT) + + + | Narrative | Performed At | + + + | Ordered by an | | | unspecified provider. | | + + + IMAGING REPORT - EXTERNAL SCAN (07/27/2016 12:00 AM PDT) + + + | Narrative | Performed At | + + + | Ordered by an | | | unspecified provider. | | + + + documented in this encounter Visit Diagnoses + + | Diagnosis | + + | Right ureteral calculus - Primary Calculus of ureter | + + | BMI 50.0-59.9, adult (HCC) Body Mass Index 50.0-59.9, adult | + + | Nocturnal hypoxia Hypoxemia | + + documented in this encounter
--- OUTSIDE RECORDS SUMMARY | ~2020-08-27 | XMS | Encounter Summary ---
Demographics + + + | Address | [address] | | | [place] [address] | + + + | Home Phone | | + + + | Preferred Language | Unknown | + + + | Marital Status | Single | + + + | Latter Day Affiliation | 1028 | + + + | Race | White | + + + | Ethnic Group | Not or | + + + Author + + + | Author | [facility] | | | and [place] | + + + | Organization | [facility] | | | and [...] Team Providers + +------+ + | Care Surface Supply Breathing Apparatus Name | Role | Phone | + [...] | | | | | | | [place] | | | | | | | [...] + + + + | 08/11/ | Anesthesia | NORA SHAH | Gloria Beth, | | | 2016 | Event | [facility] | DO [address] | | | | | [address] | [place] | | | | | [place] | [phone] | | | | | [address] | | | | | | [phone] | Miles Romero MD | | | | | | [address] | | | | | | [place] | | | | | | [phone] | | | | | | | | +--------+ + + + + Anesthesia Record + + + + + | Procedure Name | Responsible | Anesthesia Start | Anesthesia Stop Time | | | Anesthesiologist | Time | | + + + + + | Cystoscopy, Right | Gloria Beth DO | 08/11/16 1512 | 08/11/16 1645 | | Ureteroscopy w/ | | | | | Laser Lithotripsy | | | | | and Right Stent | | | | | Removal (Right | | | | | Ureter) | | | | + + + + + +----+---+ + + | Da | T | Event | Comment | | te | i | | | | | m | | | | | e | | | +----+---+ + + | 10 | 1 | | | | /0 | 4 | | | | 5/ | 4 | | | | 20 | 4 | | | | 16 | | | | +----+---+ + + | | 1 | An Checkout | Pre-use anesthesia machine/equipment checkout. | | | 4 | | | | | 4 | | | | | 7 | | | +----+---+ + + | | 1 | An Start | Reassessment prior to anesthesia induction/procedure. | | | 5 | | | | | 1 | | | | | 2 | | | +----+---+ + + | | 1 | Preoxygenat | | | | 5 | ed | | | | 1 | | | | | 2 | | | +----+---+ + + | | 1 | Pre-Procedu | | | | 5 | ral Timeout | | | | 1 | Completed | | | | 5 | | | +----+---+ + + | | 1 | An | | | | 5 | Induction | | | | 1 | | | | | 7 | | | +----+---+ + + | | 1 | An | | | | 5 | Intubation | | | | 1 | | | | | 8 | | | +----+---+ + + | | 1 | Antibiotic | | | | 5 | Given | | | | 1 | | | | | 9 | | | +----+---+ + + | | 1 | [place] | | | | 5 | 43-degrees | | | | 1 | | | | | 9 | | | +----+---+ + + | | 1 | Breathing | | | | 5 | Spontaneous | | | | 1 | ly | | | | 9 | | | +----+---+ + + | | 1 | First | | | | 5 | Inc/Proc St | | | | 3 | | | | | 1 | | | +----+---+ + + | | 1 | Extubated | | | | 6 | Awake | | | | 4 | | | | | 1 | | | +----+---+ + + | | 1 | an stop | | | | 6 | data | | | | 4 | | | | | 1 | | | +----+---+ + + | | 1 | An Stop | Patient handed off to recovery nurse. | | | 4 | | | | | 5 | | | +----+---+ + + +------+ | Meds | +------+ + +---------+ | Name | Total | + +---------+ | Phenylephrine 100mcg/mL SYRINGE | 200 mcg | + +---------+ | propofol (DIPRIVAN) injection | 200 mg | | (bolus) (20 mL) | | + +---------+ | fentaNYL injection (2 mL) | 200 mcg | + +---------+ | lidocaine 2% | 100 mg | + +---------+ | ondansetron | 4 mg | + +---------+ | dexamethasone | 10 mg | + +---------+ | levofloxacin in dextrose | 500 mg | | (LEVAQUIN) IVPB 500 mg | | + +---------+ | lactated ringers (LR) infusion | 800 mL | + +---------+ + + | Name | + + | N2O Flow Rate (L/Min) | + + | O2 Flow Rate (L/Min) | + + | Insp O2 | + + | Exp SEV | + + | Air Flow Rate (L/Min) | + + + + | No blood administrations on file. | + + +--------+ + + + | Type | Details | Placement | Removal | +--------+ + + + | Periph | 08/11/16; 1258; Right; Hand; | 08/11/16 1258 by | 08/11/16 1926 by Alex | | eral | [id number] catheter system; | Carla Dubon RN | Rebel Rosas RN | | IV | 20 gauge, 1 1/4 in length; 0; | | | | | topical anesthetic spray applied, | | | | | tolerated well; 08/11/16; 1925 | | | +--------+ + + + | Airway | Placement Date: 08/11/16; | 08/11/161517 by | 08/11/161640 by | | | Placement Time: 1517 (created via | Gloria Beth DO | Gloria Beth DO | | | procedure documentation); Mask | | | | | Ventilation: EZ; Attempts: 1; | | | | | Airway Type: laryngeal mask; | | | | | Size: 5; Placement Check: exhaled | | | | | CO2 detection device, bilateral | | | | | chest rise; Removal Date: | | | | | 08/11/16; Removal Time: 1640 | | | +--------+ + + + | Read | 08/11/16; 1605; perineum; | 08/11/16 1605 by | 08/11/161925 by Alex | | only - | 08/11/16; 1925 | Wendy Gayle | Rebel Rosas RN | | | | MONTRELL Parker | | | Incisi | | | | | on | | | | +--------+ + + + documented in this encounter Social History + + + +--------+ + [...] + + documented as of this encounter OR Notes Anesthesia Postprocedure Evaluation - Gloria Beth DO - 08/11/2016 4:45 PM PDTFormat ting of this note might be different from the original. ANESTHESIA POSTANESTHESIA EVALUATION Hemant Isidro 51 y.o. male 1965 [id number] Procedure(s) Cystoscopy, Right Ureteroscopy w/ Laser Lithotripsy and Right Stent Removal ( Right Ureter) Cooperates? Mental Status Respiratory Satisfactory - Airway patent (self maintained). Cardiovascular Satisfactory Blood pressure and heart rate acceptable Temperature Satisfactory Pain Satisfactory N/V Control Satisfactory Hydration Satisfactory No signs of dehydration Complications None apparent Filed Vitals: 08/11/16 1200 08/11/16 1643 BP: 155/88 114/48 Pulse: 92 85 Temp: 36.2 C (97.2 F) 36.4 C (97.5 F) Resp: 18 20 SpO2: 96% 95% Electronically signed by Gloria Beth DO 08/11/2016 16:45 LOCATED WITHIN [facility] nesthesia Procedur e Notes - Gloria Beth DO - 08/11/2016 3:42 PM PDTAssociated Order(s): ANE AIRWAY NOT EAnesthesia Airway Placement 08/11/2016 15:18 Preprocedure check: patient identified, oxygen, airway equipment checked, suction, airway a ssessed and patient reassessment prior to induction Mask ventilation: easy Attempts: 1 Airway type: laryngeal mask Size: 5 Route, reference point: center of mouth Tube secured with: adhesive tape Trauma: none Tube placement verification: bilateral chest rise and carbon dioxide detection Performing provider: GLORIA BETH nesthesia Preproce dure Evaluation - Samuel Hilliard II, MD - 08/11/2016 2:42 PM PDTFormatting of this not e might be different from the original. ANESTHESIA PREANESTHESIA EVALUATION Hemant Isidro 51 y.o. male 1965 [id number] Procedure(s): Cystoscopy, Right Ureteroscopy w/ Laser Litho, Possible Right Stent Replaceme nt/Removal (Right Ureter) Medical history, anesthesia, medications, allergy, NPO status verified histories reviewed. Review of Systems / Med History Pulmonary (+) smoking history Gastrointestinal/Hepatic (+) hyperlipidemia Endocrine (+) obesity (superobesity): morbid BMI 40+ Physical Exam Airway MP IV, TM >3 FB, Mouth opening <2 FB. Neck: full ROM, extends >30 degrees. Jaw protrus ion normal. CV Rhythm regular. Rate normal. Pulm (+) wheezing, rhonchi and stridor. Anesthesia Plan ASA 4 Type: General. Induction: Intravenous. Potential problems: None anticipated, difficult airway. Monitors: Standard ASA monitors. Consent statement: . Consenting person understands and agrees to proceed. Electronically Signed by: Samuel Hilliard II, MD ESig date/time: 08/11/2016 14:42 documented in this encounter Plan of Treatment Not on filedocumented as of this encounter Procedures + +--------+ + + + | Procedure Name | Priori | Date/Time | Associated Diagnosis | Comments | | | ty | | | | + +--------+ + + + | ANE AIRWAY NOTE | Routin | 08/11/2016 | | Results for this | | | e | 3:43 PM | | procedure are in the | | | | PDT | | results section. | + +--------+ + + + documented in this encounter Results Anesthesia Airway Note (08/11/2016 3:43 PM PDT) + + + | Narrative | Performed At | + + + | Gloria Beth DO 08/11/2016 15:43 Anesthesia | | | Airway Placement 08/11/2016 15:18 Preprocedure check: patient | | | identified, oxygen, airway equipment checked, suction, airway | | | assessed and patient reassessment prior to induction Mask | | | ventilation: easy Attempts: 1 Airway type: laryngeal mask Size: 5 | | | Route, reference point: center of mouth Tube secured with: adhesive | | | tape Trauma: none Tube placement verification: bilateral chest rise | | | and carbon dioxide detection Performing provider: KRISTEN | | | GLORIA BATES | | + + + documented in this encounter Visit Diagnoses Not on filedocumented in this encounter Administered Medications + +--------+ +-------+------+------+ | Medication Order | MAR | Action | Dose | Rate | Site | | | Action | Date | | | | + +--------+ +-------+------+------+ | dexamethasone (DECADRON) 10 | Given | 08/11/20 | 10 mg | | | | mg/mL injection Intravenous, | | 16 3:23 | | | | | PRN, Starting 08/11/16 at | | PM PDT | | | | | 1523, Anesthesia Intra-op | | | | | | + +--------+ +-------+------+------+ +---+---+ | | | +---+---+ + +-------+ +--------+---+---+ | fentaNYL (PF) injection | Given | 08/11/20 | 50 mcg | | | | Intravenous, PRN, Pain, Starting | | 16 4:32 | | | | | 08/11/16 at 1530, Anesthesia | | PM PDT | | | | | Intra-op | | | | | | + +-------+ +--------+---+---+ +-------+ +--------+---+---+ | Given | 08/11/20 | 50 mcg | | | | | 16 4:16 | | | | | | PM PDT | | | | +-------+ +--------+---+---+ | Given | 08/11/20 | 50 mcg | | | | | 16 3:30 | | | | | | PM PDT | | | | +-------+ +--------+---+---+ +---+---+ | | | +---+---+ + +---------+ +---+---+---+ | lactated ringers (LR) infusion | New Bag | 08/11/20 | | | | | at 10-100 mL/hr, Intravenous, | | 16 3:12 | | | | | CONTINUOUS, Starting 08/11/16 | | PM PDT | | | | | at 1300, TKO., Pre-op | | | | | | + +---------+ +---+---+---+ +---------+ +---+-------+---+ | New Bag | 08/11/20 | | 100 | | | | 16 1:00 | | mL/hr | | | | PM PDT | | | | +---------+ +---+-------+---+ +---+---+ | | | +---+---+ + +-------+ +--------+---+---+ | levofloxacin in dextrose | Given | 08/11/20 | 500 mg | | | | (LEVAQUIN) IVPB 500 mg 500 mg, | | 16 3:19 | | | | | Intravenous, Administer over 60 | | PM PDT | | | | | Minutes, BREAK AND LOAD OPERATOR, Starting Wed | | | | | | | 08/11/16 at 1234, For 1 dose, | | | | | | | Pre-op, Indications: Surgical | | | | | | | Prophylaxis | | | | | | + +-------+ +--------+---+---+ +---+---+ | | | +---+---+ + +-------+ +--------+---+---+ | lidocaine (PF) 2% injection | Given | 08/11/20 | 100 mg | | | | Intravenous, PRN, Starting Wed | | 16 3:17 | | | | | 08/11/16 at 1517, Anesthesia | | PM PDT | | | | | Intra-op | | | | | | + +-------+ +--------+---+---+ +---+---+ | | | +---+---+ + +-------+ +------+---+---+ | ondansetron (ZOFRAN) injection | Given | 08/11/20 | 4 mg | | | | Intravenous, PRN, Nausea, | | 16 4:32 | | | | | Vomiting, Starting 08/11/16 at | | PM PDT | | | | | 1632, Anesthesia Intra-op | | | | | | + +-------+ +------+---+---+ +---+---+ | | | +---+---+ + +-------+ +---------+---+---+ | phenylephrine (WENDY-SYNEPHRINE) | Given | 08/11/20 | 100 mcg | | | | 100 mcg/mL injection | | 16 3:45 | | | | | Intravenous, PRN, Starting Wed | | PM PDT | | | | | 08/11/16 at 1530, Anesthesia | | | | | | | Intra-op | | | | | | + +-------+ +---------+---+---+ +-------+ +---------+---+---+ | Given | 08/11/20 | 100 mcg | | | | | 16 3:30 | | | | | | PM PDT | | | | +-------+ +---------+---+---+ +---+---+ | | | +---+---+ + +-------+ +--------+---+---+ | propofol (DIPRIVAN) injection | Given | 08/11/20 | 200 mg | | | | Intravenous, PRN, Starting Wed | | 16 3:17 | | | | | 08/11/16 at 1517, Anesthesia | | PM PDT | | | | | Intra-op | | | | | | + +-------+ +--------+---+---+ +---+---+ | | | +---+---+ documented in this encounter"
--- OUTSIDE RECORDS SUMMARY | ~2020-08-27 | XMS | Encounter Summary ---
Demographics + + + | Address | [address] | | | [place] [address] | + + + | Home Phone [...] Author + + + | Author | [facility] | | | and [place] | + + + | Organization | [facility] | | | and [...] Team Providers + +------+ + | Care Boat Rigger Name | Role | Phone | + [...] | | | | | | | Right | | | | | | | ureteral | | | | | | | stone | | | | | | | Hydronephros | | | | | | | is, right | | | | | | | Renal colic | | | | | | | on right | | | | | | | side Right | | | | | | | ureteral | | | | | | | stone Right | | | | | | | ureteral | | | | | | | stone | | | | | | | [N20.1], | | | | | | | Hydronephros | | | | | | | is, right | | | | | | | [N13.30], | | | | | | | Renal colic | | | | | | | on right | | | | | | | side [N23] | | | | | | | | | | | | | | Procedures | | | | | | | WA | | | | | | | CYSTO/URETER | | | | | | | O | | | | | | | W/LITHOTRIPS | | | | | | | Y &INDWELL | | | | | | | STENT INSRT | | | | | | | CYSTOSCOPY | | | | | | | PLACEMENT | | | | | | | URETERAL | | | | | | | STENT | | | +--------+--------+ + + + + Encounter Details +--------+ + + + + | Date | Type | Department | Care Team | Description | +--------+ + + + + | 07/28/ | Anesthesia | [facility] | Cy Simental | | | 2016 | Event | [facility] | P, MD [address] | | | | | [address] | [address] [place], [place] | | | | | [place], [place] | [address] | | | | | [address] | | | | | | [phone] | | | +--------+ + + + + Anesthesia Record + + + + + | Procedure Name | Responsible | Anesthesia Start | Anesthesia Stop Time | | | Anesthesiologist | Time | | + + + + + | Cystoscopy w/ Right | Cy Simental, | 07/28/16 0941 | 07/28/16 1038 | | Ureteral Stent | MD | | | | Placement (Right ) | | | | + + + + + +----+---+ + + | Da | T | Event | Comment | | te | i | | | | | m | | | | | e | | | +----+---+ + + | 09 | 0 | An Checkout | Pre-use anesthesia machine/equipment checkout. | | /2 | 8 | | | | 1/ | 4 | | | | 20 | 9 | | | | 16 | | | | +----+---+ + + | | 0 | An Start | | | | 9 | Data | | | | 3 | | | | | 9 | | | +----+---+ + + | | 0 | An Start | Room ready, anesthesia equipment checked, essential drugs & | | | 9 | | equipment available. Patient Identity checked, anesthesia plan | | | 4 | | explained and consent obtained. Patient transported to OR, | | | 1 | | Monitors applied. Reassessment prior to anesthesia | | | | | induction/procedure. | +----+---+ + + | | 0 | an valerie now | | | | 9 | | | | | 4 | | | | | 4 | | | +----+---+ + + | | 0 | Antibiotic | | | | 9 | Given | | | | 4 | | | | | 5 | | | +----+---+ + + | | 0 | Preoxygenat | | | | 9 | ed | | | | 4 | | | | | 8 | | | +----+---+ + + | | 0 | An | | | | 9 | Induction | | | | 5 | | | | | 2 | | | +----+---+ + + | | 0 | An | | | | 9 | Intubation | | | | 5 | | | | | 3 | | | +----+---+ + + | | 1 | Pre-Procedu | | | | 0 | ral Timeout | | | | 0 | Completed | | | | 2 | | | +----+---+ + + | | 1 | an valerie now | Begin | | | 0 | | | | | 0 | | | | | 4 | | | +----+---+ + + | | 1 | First | | | | 0 | Inc/Proc St | | | | 0 | | | | | 5 | | | +----+---+ + + | | 1 | | | | | 0 | | | | | 2 | | | | | 4 | | | +----+---+ + + | | 1 | an valerie now | PACU | | | 0 | | | | | 3 | | | | | 3 | | | +----+---+ + + | | 1 | An Stop | Patient handed off to recovery nurse. | | | 3 | | | | | 8 | | | +----+---+ + + +------+ | Meds | +------+ + +---------+ | Name | Total | + +---------+ | midazolam | 2 mg | + +---------+ | propofol (DIPRIVAN) injection | 200 mg | | (bolus) (20 mL) | | + +---------+ | fentaNYL injection (2 mL) | 100 mcg | + +---------+ | ondansetron | 4 mg | + +---------+ | ciprofloxacin in dextrose (CIPRO) | 400 mg | | IVPB 400 mg | | + +---------+ | lactated ringers (LR) infusion | 500 mL | + +---------+ + + | [...] +--------+ + + + | Periph | 07/27/16; 1843; Left; Distal; | 07/27/16 1843 by | 07/28/16 1630 by | | eral | Forearm; [id number] catheter | Lavell Durán RN | Vita Allen RN | | IV | system; 20 gauge, 1 / in | | | | | length; distraction, tolerated | | | | | well; no longer indicated; short | | | | | term use; 07/28/16; 1630 | | | +--------+ + + + | Pain | 07/27/16; 1857; Right; other (see | 07/27/161857 by | 07/28/161857 by | | Assess | comments); flank; 07/28/16; 1857 | Vita Allen RN | Discharge Provider, | | ment: | | | Automatic | | Number | | | | | Scale | | | | | | | | | | (0-10) | | | | +--------+ + + + | Airway | Placement Date: 07/28/16; | 07/28/16952 by | 07/28/16 1040 by | | | Placement Time: 952 (created via | Cy Simental, | Marko Padilla RN | | | procedure documentation); Mask | MD | | | | Ventilation: EZ; Attempts: 1; | | | | | Airway Type: laryngeal mask; | | | | | Size: 5; Placement Check: exhaled | | | | | CO2 detection device, bilateral | | | | | chest rise, breath sounds equal | | | | | bilaterally; Removal Date: | | | | | 07/28/16; Removal Time: 1040; | | | | | Additional Comments: Smooth IV | | | | | induction. LMA placed and well | | | | | seated. Secured in place. | | | | | Breathing Circuit attached to | | | | | LMA. BSEB/ETCO2 (auscultation | | | | | and capnography) and placement | | | | | confirmed. | | | +--------+ + + + [...] encounter OR Notes Anesthesia Postprocedure Evaluation - Cy Simental MD - 07/28/2016 2:00 PM PDTForm atting of this note might be different from the original. ANESTHESIA POSTANESTHESIA EVALUATION Hemant Isidro 51 y.o. male 1965 [id number] Procedure(s) Cystoscopy w/ Right Ureteral Stent Placement (Right ) Cooperates? Yes Mental Status Performs simple tasks. Respiratory Satisfactory - Airway patent (self maintained). Cardiovascular Satisfactory Blood pressure and heart rate acceptable Temperature Satisfactory Pain Satisfactory N/V Control Satisfactory Hydration Satisfactory No signs of dehydration Complications None apparent Filed Vitals: 07/28/16 1450 07/28/16 1505 07/28/16 1600 BP: 135/71 129/60 Pulse: 87 88 82 Temp: Resp: 16 16 SpO2: 94% 83% 94% Electronically signed by Cy Simental MD 07/29/2016 8:02 [facility] nesthesia Proced ure Notes - Cy Simental MD - 07/28/2016 10:04 AM PDTAssociated Order(s): ANE AIRWAY NOTEAnesthesia Airway Placement 07/28/2016 9:53 Preprocedure check: patient identified, oxygen, airway assessed, patient reassessment prior to induction, airway equipment checked and suction Mask ventilation: easy Attempts: 1 Airway type: laryngeal mask Size: 5 Cuffed: cuffed Route, reference point: center of mouth Tube secured with: adhesive tape Trauma: none Tube placement verification: carbon dioxide detection, equal bilateral breath sounds and bi lateral chest rise Performing provider: CY SIMENTAL Comments: Smooth IV induction. LMA placed and well seated. Secured in place. Breathing Circuit attached to LMA. BSEB/ETCO2 (auscultation and capnography) and placement confirmed. nesthesia Prepro cedure Evaluation - Cy Simental MD - 07/28/2016 8:46 AM PDT ANESTHESIA PREANESTHESIA EVALUATION Hemant Rosas Sanna 51 y.o. male 1965 [id number] Procedure(s): Cystoscopy w/ Right Ureteral Stent Placement (Right ) Medical history, anesthesia, medications, allergy, NPO status verified histories reviewed. Review of Systems / Med History Anesthesia History No anesthesia complications. Cardiovascular Negative except where noted below. Pulmonary Negative except where noted below. (+) smoking history Neurology Negative except where noted below. Psychology Negative except where noted below. Renal Negative except where noted below. Gastrointestinal/Hepatic Negative except where noted below. (+) hyperlipidemia Endocrine Negative except where noted below. (+) obesity: morbid BMI 40+ Physical Exam Airway MP III, TM >3 FB, Mouth opening >2 FB. Neck: full ROM, extends >30 degrees. Jaw protru oscar normal. Dental Grossly normal except where noted below.; CV Rhythm regular. Rate Normal. (-) murmur. Pulm Clear to auscultation bilaterally. Anesthesia Plan ASA 3 Type: General. Induction: Intravenous. Potential problems: None anticipated, none anticipated. Monitors: Standard ASA monitors. Consent statement:Anesthetic plan, alternatives, risks and benefits discussed with patient. Risks discussed included (but were not limited to): sore throat, pain, disability, perioper ative CV events, infection, muscle aches, voice injury, drug reaction, heart problems, nause a, respiratory events, . Consenting person understands and agrees to proceed. Patient Active Problem List: Ureteral calculus, right Hydronephrosis, right Renal colic on right side H/O Kidney stones BMI 50.0-59.9 Class IV, BMI 50-59 Smoker - Daily . Electronically Signed by: Cy Simental MD ESig date/time: 07/28/2016 8:46 documented in thi s encounter Plan of Treatment Not on filedocumented as of this encounter Procedures + +--------+ + + + | Procedure Name | Priori | Date/Time | Associated Diagnosis | Comments | | | ty | | | | + +--------+ + + + | ANE AIRWAY NOTE | Routin | 07/28/2016 | | Results for this | | | e | 10:04 AM | | procedure are in the | | | | PDT | | results section. | + +--------+ + + + documented in this encounter Results Anesthesia Airway Note (07/28/2016 10:04 AM PDT) + + + | Narrative | Performed At | + + + | Cy Simental MD 07/28/2016 10:04 Anesthesia Airway | | | Placement 07/28/2016 9:53 Preprocedure check: patient identified, | | | oxygen, airway assessed, patient reassessment prior to induction, | | | airway equipment checked and suction Mask ventilation: easy | | | Attempts: 1 Airway type: laryngeal mask Size: 5 Cuffed: cuffed | | | Route, reference point: center of mouth Tube secured with: adhesive | | | tape Trauma: none Tube placement verification: carbon dioxide | | | detection, equal bilateral breath sounds and bilateral chest rise | | | Performing provider: CY SIMENTAL Comments: Smooth IV | | | induction. LMA placed and well seated. Secured in place. Breathing | | | Circuit attached to LMA. BSEB/ETCO2 (auscultation and | | | capnography) and placement confirmed. | | + + + documented in this encounter Visit Diagnoses Not on filedocumented in this encounter Administered Medications + +--------+ +--------+------+------+ | Medication Order | MAR | Action | Dose | Rate | Site | | | Action | Date | | | | + +--------+ +--------+------+------+ | ciprofloxacin in dextrose | Given | 07/28/20 | 400 mg | | | | (CIPRO) IVPB 400 mg 400 mg, | | 16 9:45 | | | | | Intravenous, Administer over 1 | | AM PDT | | | | | Hours, EVERY 12 HOURS (2 times | | | | | | | per day), First dose on Tue | | | | | | | 07/27/16 at 2100, Indications: UTI | | | | | | | - LOWER | | | | | | + +--------+ +--------+------+------+ +---------+ +--------+-------+---+ | New Bag | 07/27/20 | 400 mg | 200 | | | | 16 8:45 | | mL/hr | | | | PM PDT | | | | +---------+ +--------+-------+---+ +---+---+ | | | +---+---+ + +-------+ +--------+---+---+ | fentaNYL (PF) injection PRN, | Given | 07/28/20 | 50 mcg | | | | Pain, Starting 07/28/16 at | | 16 9:52 | | | | | 0945, Anesthesia Intra-op | | AM PDT | | | | + +-------+ +--------+---+---+ +-------+ +--------+---+---+ | Given | 07/28/20 | 50 mcg | | | | | 16 9:45 | | | | | | AM PDT | | | | +-------+ +--------+---+---+ +---+---+ | | | +---+---+ + +-------+ +------+---+---+ | midazolam (VERSED) 1 mg/mL | Given | 07/28/20 | 2 mg | | | | injection Intravenous, PRN, | | 16 9:45 | | | | | Anxiety, Starting Tue07/28/16 at | | AM PDT | | | | | 0945, Anesthesia Intra-op | | | | | | + +-------+ +------+---+---+ +---+---+ | | | +---+---+ + +-------+ +------+---+---+ | ondansetron (ZOFRAN) injection | Given | 07/28/20 | 4 mg | | | | PRN, Nausea, Vomiting, Starting | | 16 9:45 | | | | | Tue07/28/16 at 0945, Anesthesia | | AM PDT | | | | | Intra-op | | | | | | + +-------+ +------+---+---+ +---+---+ | | | +---+---+ + +-------+ +--------+---+---+ | propofol (DIPRIVAN) injection | Given | 07/28/20 | 200 mg | | | | PRN, Starting 07/28/16 at | | 16 9:52 | | | | | 0952, Anesthesia Intra-op | | AM PDT | | | | + +-------+ +--------+---+---+ +---+---+ | | | +---+---+ documented in this encounter"
--- OUTSIDE RECORDS SUMMARY | ~2020-08-27 | XMS | Encounter Summary ---
Demographics + + + | Address | [address] | | | [place] [address] | + + + | Home Phone | | + + + | Preferred Language | Unknown | + + + | Marital Status | Single | + + + | Nondenominational Affiliation | 1028 | + + + | Race | White | + + + | Ethnic Group | Not or | + + + Author + + + | Author | [facility] | | | and [place] | + + + | Organization | [facility] | | | [...] Team Providers + +------+ + | Care Coat Room Attendant Name | Role | Phone | + [...] | | | | | | | [place] | | | | | | | [...] Description | +--------+---------+ + + + | 08/11/ | Surgery | [facility] | Andrae Wilkins, | Cystoscopy, Right | | 2016 | | [facility] | MD Cornelio WHITFIELD | Ureteroscopy w/ | | | | [address] | [place]UILAR | Laser Lithotripsy | | | | [place], [place] | [address] | and Right Stent | | | | [id number] | | Removal | | | | [phone] | | | +--------+---------+ + + + [...] + + + | Blood Pressure | 155/88 | 08/11/2016 12:00 PM | | | | | PDT | | + + + + + | Pulse | 92 | 08/11/2016 12:00 PM | | | | | PDT | | + + + + + | Temperature | 36.2 C (97.2 F) | 08/11/2016 12:00 PM | | | | | PDT | | + + + + + | Respiratory Rate | 18 | 08/11/2016 12:00 PM | | | | | PDT | | + + + + + | Oxygen Saturation | 96% | 08/11/2016 12:00 PM | | | | | PDT | | + + + + + | Inhaled Oxygen | - | - | | | Concentration | | | | + + + + + | Weight | 164.2 kg (362 lb) | 08/11/2016 12:00 PM | | | | | PDT | | + + + + + | Height | 170.2 cm (5' 7") | 08/11/2016 12:00 PM | | | | | PDT | | + + + + + | Body Mass Index | 56.7 | 08/11/2016 12:00 PM | | | | | PDT [...] + + documented as of this encounter Discharge Instructions Instructions Andrae Wilkins MD - 08/11/2016DISCHARGE INSTRUCTIONS URINARY TRACT STONE SURGERY including: URETEROSCOPY LASER LITHOTRIPSY URETERAL STENT REMOVAL Activity: Light for 1-2 days. Walk frequently as tolerated. Gradually return to normal activitie s as tolerated. Best to avoid intercourse for 5-7 days. Preferable to avoid heavy lifting or straining for 5-7 days. Following laser lithotripsy, please strain your urine and save any stones for analysis. Diet: Clear liquids until nausea passes, then return to normal diet as tolerated. Fluids are encouraged to help flush blood out of your urinary tract. Drink 8 glasses of fluid a day until urine is free of blood. Pain pills can cause constipation. Use a laxative of your choice if necessary. Pain and Comfort: Bloody urine is common and will generally clear up within several days, but can last shayy hailey. Slight burning on urination may occur. Urinary urgency and frequency is also not unusua l after this type of surgery. Use pain medication as directed. Take Tylenol for less severe pain. Do not take Aspirin for 72 hours after your surgery, unless instructed differently. Additional Instructions: You may shower at any time. Follow up: Call Dr Wilkins's office ([phone]) to set up your follow-up appointment or other arr angements as appropriate. Call YOUR UROLOGIST'S office for: Unremitting very heavy bright red bleeding and/or large volume of clots when urinating, that is worsening despite rest and pushing oral fluids. Inability to urinate. Elevated fever over 101 F. Frequent unremitting nausea/vomiting. Severe pain not relieved by rest or prescribed pain medication. If you are unable to reach your doctor at the above number, call the answering service at (after hours and weekends). If you have received sedation / an anesthetic today, DO NOT drive a vehicle, use alcoholic beverages, sign legal documents, take public transportation alone or care for a dependent pe rson for the next 24 hours. Also, you should not drive until you are off of all narcotic pa in medications and can move your legs easily without pain. Stent: You do not have a ureteral stent in on your right side. documented in this encounter Medications at Time of Discharge + + + +---------+ + + | Medication | Sig | Dispensed | Refills | Start | End Date | | | | | | Date | | + + + +---------+ + + | | Take 1 tablet by | 25 | 0 | 08/11/20 | | | HYDROcodone-acetamin | mouth every [...] + + documented as of this encounter H&P Andrae Burt MD - 08/11/2016 1:[facility] INTERIM HISTORY AND PHYSICAL UPDATE Pt. Name/Age/: Hemant Isidro 51 y.o. 1965 Date of admission: 08/11/2016 The most current H&P was reviewed. The patient was reexamined. Re-evaluation of the patie nt confirms the necessity for the scheduled procedure. No change has occurred in the patien t s condition since the H&P was completed less than 30 days ago. No change in exam of hea rt and lungs. I have again today verified that the patient has a clear understanding of the treatment options, the selected procedure, the potential benefits and risks, and that there are no additional questions at this time. Electronically signed by: Andrae Wilkins, 08/11/2016 13:39 [facility] uttonAndrae MD - 08/02/2016 9:40 AM PDT Hemant is a 51 y.o. male patient being seen today for follow up of kidney stones. CC: 7 mm proximal right ureteral calculus HPI: Hemant experienced right renal colic on 07/25/2016. He was eventually evaluated at [facility] where CT imaging demonstrated a 7 mm [...] tenderness. DIAGNOSTIC DATA: CT imaging 07/27/2016 from [facility] demonstrates a 7.4 millimeter stone at [...] ECGs available Confirmed by JOE BAKER, GREGORIA ([id number]) on 07/28/2016 9:32:23 AM IMPRESSION: 1. 7.4 [...] Obtain final urine culture testing results from [facility] 07/27/2016. I emphasized to Hemant that [...] procedure and anesthesia includin g DVT, PE, [place], CVA, and even . Hemant indicates his [...] have not thoroughly proofread this note, and toddler teacher erro rs may occur. documented in this en counter Miscellaneous Notes Op Note - Andrae Wilkins MD - 08/11/2016 4:48 PM PDTOperative Note Pt. Name/Age/: Hemant Isidro 51 y.o. 1965 Med. Record Number: [id number] Date of Operation/Procedure: 08/11/2016 Preoperative Diagnosis: Right Ureteral calculus Postoperative Diagnosis: Right Ureteral calculus Surgeon: Andrae Wilkins MD Timber Framer Helper(s): None Anesthesia Provider(s): Anesthesiologist: Alden Beth DO Anesthesia Type: General Operation performed: Cystoscopy Right Ureteroscopy with laser lithotripsy of ureteral calculus Right Ureteral stent removal Operative Indications: Hemant Isidro is a 51 y.o. year old male who presents with signs and symptoms consistent with a right ureteral calculus. Hemant was counseled and requ ests operative intervention. The risks, benefits, complications, treatment options, and expected outcomes were discussed with Hemant. Hemant gave informed consent to proceed to the operating room for endoscopic robert luation and treatment. Discussed risks, including infection, bleeding, failure to access ur eter, possible severe ureteral injury, need for prolonged stent, stent irritation, hematuria , failure to diagnose, inability to treat encountered pathology, inherent risks of surgery, anesthetic complications. The patient is aware this may be the first stage of a multi-stage procedure. Hemant understands and consents to proceed. Operative Findings: Cystoscopy noted no bladder tumors or lesions. Ureteroscopy noted a v campbell large, 7-8 mm stone in the proximal right ureter. Radiographic Findings: A large stone in the proximal right ureter. Operative procedure in detail: Under the benefit of general anesthesia, the patient was prepped and draped in the usual st erile fashion in a low lithotomy position. Arms and legs were carefully padded and positione d to prevent any injury. An appropriate time out was held prior to the procedure. Preopera tive antibiotics and MARCELLA stockings were applied as per protocol. Preoperative images were d isplayed on the imaging monitor. A rigid cystoscope was then placed through the urethra into the bladder and the bladder was systematically surveyed and investigated, and the above findings were readily noted. A Sensor guidewire was placed under fluoroscopic guidance up into the renal pelvis. It was then secured to a drape as a safety guidewire. The indwelling stent was then removed without difficulty intact. I then placed the semirigid ureteroscope up into the ureter beside the guidewire, and visua lized a large stone in the proximal right ureter. A ureteral dilator was not needed to dila te the ureteral orifice. I made multiple attempts, but I could not position the scope to allow placement of a laser fiber directly on the stone, so I made the decision to use the flexible ureteroscope. A second guidewire was passed through the semirigid ureteroscope up into the renal pelvis u nder fluoroscopic guidance. A flexible ureteroscope was passed over the second guidewire, b eside the working guidewire, up to the level of the stone. The holmium laser fiber was then passed through the flexible ureteroscope, and used to frag ment the stone into multiple small pieces. I then passed the ureteroscope up into the renal pelvis, beyond the level of the stone óscar tment field, and saw multiple tiny stone fragments, but no stone fragments larger than appro ximately 2 mm. The ureteroscope was then slowly withdrawn along the ureter and removed. There was no sign of ureteral injury or ureteral perforation, but there was significant edema and inflammator y change for the stone was impacted in the proximal ureter, just below the UPJ. Since his stones appeared to be completely fragmented, and since his ureter was patent, I d id not replace a ureteral stent. The bladder was then drained through the cystoscope, and the scope was removed. The patient was then awakened from anesthesia and sent to recovery in stable condition. Estimated Blood Loss: None Transfused: No Drains: None Specimen (s): None Complications: None Patient Condition: Stable Disposition: Discharge home when stable. The patient to return in approximately 7-14 days for KUB. Electronically Signed by: Andrae Wilkins, 08/11/2016 16:49 [facility] documented in this en counter Plan of [...] | + +--------+ + + + | CYSTOSCOPY | | 08/11/2016 | Right ureteral | | | URETEROSCOPY W/ | | 2:52 PM | calculus | | | LASER | | PDT | | | + +--------+ + + + | LABS - EXTERNAL SCAN | | 08/09/2016 | | Results for this | | | | 12:00 AM | | procedure are in the | | | | PDT | | results section. | + +--------+ + + + | LABS - EXTERNAL SCAN | | 07/27/2016 | | Results for [...] | Procedure Note | + + | Zheng Perez Results In - 08/12/2016 8:58 AM PDT EXAM: FL PYELOGRAM RETROGRADE | | | | HISTORY: intra op | | | | COMPARISON: None. | | | | TECHNIQUE: Review of 2 digital intraoperative spot images obtained during | | retrograde pyelogram by Dr. Cordeor. | | | | FINDINGS: | | [...] | | | + +---------+ + + LABS - EXTERNAL SCAN (08/09/2016 12:00 AM PDT) + + + | Narrative | Performed At | + + + | Ordered by an | | | unspecified provider. | | + + + LABS - EXTERNAL SCAN (07/27/2016 12:00 AM PDT) + + + | Narrative | Performed At | + + + | Ordered by an | | | unspecified provider. | | + + + documented in this encounter Visit Diagnoses + + | Diagnosis | + + | Right ureteral calculus Calculus of ureter | + + documented in this encounter Administered Medications + +--------+ +--------+------+------+ | Medication Order | MAR | Action | Dose | Rate | Site | | | Action | Date | | | | + +--------+ +--------+------+------+ | albuterol 2.5 mg/3 mL nebulizer | Given | 08/11/20 | 2.5 mg | | | | solution 2.5 mg 2.5 mg, | | 16 12:42 | | | | | Nebulization, ONCE PRN, Wheezing, | | PM PDT | | | | | Starting 08/11/16 at 1234, | | | | | | | For 1 dose, RT will administer., | | | | | | | Pre-op | | | | | | + +--------+ +--------+------+------+ +---+---+ | | | +---+---+ + +-------+ +--------+---+---+ | albuterol 2.5 mg/3 mL nebulizer | Given | 08/11/20 | 2.5 mg | | | | solution 2.5 mg 2.5 mg, | | 16 4:52 | | | | | Nebulization, ONCE PRN, Wheezing, | | PM PDT | | | | | Starting 08/11/16 at 1633, | | | | | | | For 1 dose, Notify anesthesia if | | | | | | | patient is wheezing and does not | | | | | | | have a history of asthma or COPD | | | | | | | or current smoking., | | | | | | | Recovery/Phase I | | | | | | + +-------+ +--------+---+---+ +---+---+ | | | +---+---+ + +-------+ +--------+---+---+ | fentaNYL (PF) injection 25-50 | Given | 08/11/20 | 50 mcg | | | | mcg 25-50 mcg, Intravenous, | | 16 6:30 | | | | | EVERY 5 MIN PRN, Pain, Starting | | PM PDT | | | | | 08/11/16 at 1633, Maximum | | | | | | | total dose 250 mcg. PACU IV | | | | | | | Narcotic Priority: Only use | | | | | | | fentanyl for immediate post-op | | | | | | | pain (one dose) or breakthrough | | | | | | | pain when any other IV narcotics | | | | | | | ordered have been ineffective (if | | | | | | | ordered). If both morphine and | | | | | | | hydromorphone are ordered, use | | | | | | | morphine first, and use | | | | | | | hydromporphone if morphine | | | | | | | ineffective., Recovery/Phase I | | | | | | + +-------+ +--------+---+---+ +-------+ +--------+---+---+ | Given | 08/11/20 | 50 mcg | | | | | 16 5:09 | | | | | | PM PDT | | | | +-------+ +--------+---+---+ +---+---+ | | | +---+---+ + +-------+ +---------+---+---+ | HYDROcodone-acetaminophen | Given | 08/11/20 | 2 | | | | (NORCO) 5-325 mg per tablet 1-2 | | 16 6:25 | tablets | | | | tablet 1-2 tablet, Oral, EVERY 4 | | PM PDT | | | | | HOURS PRN, Pain, Starting Tue | | | | | | | 08/11/16 at 1813, Post-op/Phase II | | | | | | + +-------+ +---------+---+---+ +---+---+ | | | +---+---+ + + + +--------+---+---+ | HYDROmorphone (DILAUDID) | Given by | 08/11/20 | 0.5 mg | | | | injection 0.2-0.5 mg 0.2-0.5 mg, | Other | 16 5:47 | | | | | Intravenous, EVERY 5 MIN PRN, | | PM PDT | | | | | Pain, Starting Tue08/11/16 at | | | | | | | 1633, Maximum total dose 4 mg. | | | | | | | PACU IV Narcotic Priority: Only | | | | | | | use fentanyl for immediate | | | | | | | post-op pain (one dose) or | | | | | | | breakthrough pain when any other | | | | | | | IV narcotics ordered have been | | | | | | | ineffective (if ordered). If | | | | | | | both morphine and hydromorphone | | | | | | | are ordered, use morphine first, | | | | | | | and use hydromporphone if | | | | | | | morphine ineffective., | | | | | | | Recovery/Phase I | | | | | | + + + +--------+---+---+ +-------+ +--------+---+---+ | Given | 08/11/20 | 0.5 mg | | | | | 16 5:24 | | | | | | PM PDT | | | | +-------+ +--------+---+---+ +---+---+ | | | +---+---+ + +-------+ +-------+---+---+ | ketorolac (TORADOL) injection | Given | 08/11/20 | 30 mg | | | | 30 mg 30 mg, Intravenous, EVERY | | 16 6:55 | | | | | 6 HOURS (4 times per day), First | | PM PDT | | | | | dose on Tue08/11/16 at 1915, For | | | | | | | 5 days, Post-op/Phase II | | | | | | + +-------+ +-------+---+---+ +---+---+ | | | +---+---+ + +---------+ [...] +---+---+ | | | +---+---+ + +-------+ + +---+---+ | opium-angeloa (B&O) 60-16.2 | Given | 08/11/20 | 1 | | | | mg suppository 1 suppository 1 | | 16 5:28 | supposit | | | | suppository, Rectal, ONCE, Wed | | PM PDT | ory | | | | 08/11/16 at 1745, For 1 dose, | | | | | | | Recovery/Phase I | | | | | | + +-------+ + +---+---+ +---+---+ | | | +---+---+ + +-------+ +--------+---+---+ | phenazopyridine (PYRIDIUM) | Given | 08/11/20 | 200 mg | | | | tablet 200 mg 200 mg, Oral, | | 16 5:20 | | | | | ONCE, 08/11/16 at 1730, For 1 | | PM PDT | | | | | dose, Post-op/Phase II | | | | | | + +-------+ +--------+---+---+ +---+---+ | | | +---+---+ documented in this encounter
--- OUTSIDE RECORDS SUMMARY | ~2020-08-27 | XMS | Encounter Summary ---
Demographics + + + | Address | [address] | | | [place] [address] | + + + | Home Phone | | + + + | Preferred Language | Unknown | + + + | Marital Status | Single | + + + | Congregational Affiliation | 1028 | + + + | Race | White | + + + | Ethnic Group | Not or | + + + Author + + + | Author | [facility] | | | and [place] | + + + | Organization | [facility] | | | [...] Team Providers + +------+ + | Care Neurophysiological Technician Name | Role | Phone | + +------+ + | No, Physician | PCP | Unavailable | + +------+ + Reason for Referral (Routine) +--------+--------+ + + + + | Status | Reason | Specialty | Diagnoses / | Referred By | Referred To | | | | | Procedures | Contact | Contact | +--------+--------+ + + + + | Closed | | | Diagnoses | Claudette | | | | | | | Andrae Simms MD | | | | | | Postoperativ | [address] | | | | | | [address] chiquita | [facility] | | | | | | Procedures | [place] | | | | | | DME: Oxygen | [id number] | | | | | | Therapy | Phone: | | | | | | | [phone] | | | | | | | Fax: | | | | | | | [phone] | | +--------+--------+ + + + + Reason for Visit Auth/Cert +--------+--------+ + [...] | | | | | | | [place] | | | | | | | [...] | +--------+ + + + + | 07/27/ | Hospital | [facility] | Andrae Wilkins, | Hydronephrosis, | | 2016 - | Encounter | [facility] | [address] | right (Primary Dx); | | | | [address] | [place] | Renal colic on right | | 07/28/ | | [place] [id number] | [id number] | side; Ureteral | | 2016 | | [phone] | | calculus, right; | | | | | | Postoperative | | | | | | hypoxia | +--------+ + + + + Social [...] + + + | Blood Pressure | 129/60 | 07/28/2016 4:00 PM | | | | | PDT | | + + + + + | Pulse | 82 | 07/28/2016 4:00 PM | | | | | PDT | | + + + + + | Temperature | 35.6 C (96.1 F) | 07/28/2016 11:20 AM | | | | | PDT | | + + + + + | Respiratory Rate | 16 | 07/28/2016 4:00 PM | | | | | PDT | | + + + + + | Oxygen Saturation | 94% | 07/28/2016 4:00 PM | | | | | PDT | | + + + + + | Inhaled Oxygen | - | - | | | Concentration | | | | + + + + + | Weight | 148.8 kg (328 lb) | 07/27/2016 5:37 PM | | | | | PDT | | + + + + + | Height | 170.2 cm (5' 7") | 07/27/2016 5:37 PM | | | | | PDT | | + + + + + | Body Mass Index | 51.37 | 07/27/2016 5:37 PM | | | [...] Discharge Instructions Instructions Andrae Wilkins MD - 07/28/2016DISCHARGE INSTRUCTIONS URINARY TRACT STONE SURGERY including: URETERAL STENT PLACEMENT Activity: Light for 1-2 days. Walk frequently as tolerated. Gradually return to normal activitie s as tolerated. Best to avoid intercourse for 2-3 days. Preferable to avoid heavy lifting or straining for 5-7 days. Diet: Clear liquids until nausea passes, then [...] time. Follow up: Call Dr Wilkins's office ([phone]) to set up your follow-up appointment or [...] legs easily without pain. Stent: You do have a ureteral stent in on your right side. If you do have a stent, please review the following: What is a Stent? A stent is a soft silicone tube placed in your ureter (the tube from your kidney to your bl adder). It is used to facilitate the passage of urine and sometimes kidney stone fragments f rom your kidney. How does it feel? The following symptoms are normal: 1. Pressure or mild irritation in your bladder area. 2. Urgency to urinate. 3. Occasional discomfort in the kidney before and after you empty your bladder. 4. Blood in the urine is common and will generally clear up within several days but can las t longer. 5. Sexual activity is safe while the stent is in place, though it may be uncomfortable for you. These symptoms go away after the removal of your stent. Some patients have no symptoms at a ll, while others are quite limited by the stent. When is it removed? Stent removal will take place once the stone is treated. It cannot remain in place longer than 6 months documented in this encounter Medications at Time of Discharge + + + +---------+ + + | Medication | Sig | Dispensed | Refills | Start | End Date | | | | | | Date | | + + + +---------+ + + | | Take 1-2 tablets by | 25 | 0 | 07/28/20 | | | HYDROcodone-acetamin | mouth every 4 hours | tablet | | 16 | 6 | | ophen (NORCO) 5-325 | as needed for Pain | | | | | | mg per tablet | (Pain). | | | | | + + + +---------+ + + | | Take 1 tablet by | 6 | 0 | 07/28/20 | | | sulfamethoxazole-tri | mouth 2 times daily | tablet | | 16 | 6 | | methoprim (BACTRIM | for 3 days. | | | | | | DS) 800-160 mg per | | | | | | | tablet | | | | | | + + + +---------+ + + documented as of this encounter Progress Notes Lisandra Santiago, KRISTAN - 07/28/2016 4:57 PM PDTFormatting of this note might be diffe rent from the original. 07/28/16 1505 Oxygen Therapy O2 Device room air (room air trial, oxygen back on 2 l/m for possible ramiro) Home O2 eval performed? yes Resting on RA (%) 83 (patient resting on room air, oxygen back on 2 l/m) Resting on O2 (%)(add L/Min in comment) 92 (resting on 2 l/m) Vitals Pulse 88 SpO2 (!) 83 % (oxygen back on 2 l/m) Continuous Pulse Oximeter On Oximetry Interventions ~ Pulse Oximetry Multiple Determinations ~ Performed Oxygen Interventions ~ Oxygen System Set Up ~ Performed Lisandra Ravi, KRISTAN - 07/28/2016 4:57 PM PDT 07/28/16 1505 Oxygen Therapy O2 Device room air (room air trial, oxygen back on 2 l/m for possible ramiro) Home O2 eval performed? yes Resting on RA (%) 83 (patient resting/asleep on room air, oxygen back on 2 l/m) Resting on O2 (%)(add L/Min in comment) 92 (resting on 2 l/m) Vitals Pulse 88 SpO2 (!) 83 % (oxygen back on 2 l/m) Continuous Pulse Oximeter On Oximetry Interventions ~ Pulse Oximetry Multiple Determinations ~ Performed Oxygen Interventions ~ Oxygen System Set Up ~ Performed Andrae Salinas MD - 07/28/2016 7:41 AM PDTUrology follow up S: Still having pain, but not as severe as yesterday. BP 111/62 mmHg | Pulse 83 | Temp(Src) 35.8 C (96.4 F) (Oral) | Resp 20 | Ht 1.702 m (5' 7") | Wt 148.78 kg (328 lb) | BMI 51.36 kg/m2 | SpO2 92% General: Awake, alert, in no acute distress. Speech is fluent. Appears comfortable. Lungs: Normal respiratory effort, no wheezing, no stridor, no tachypnea. Back: Mild right CVA tenderness. Abdomen: Soft, mild right flank tenderness, rotund, no hepatosplenomegaly. No masses. No guarding; benign. Bladder nondistended. Extremities: Trace ankle edema. Warm, perfused. Neuro: Awake, alert, oriented x3. Psychiatric: Mood and affect are normal. Normal judgment. Skin: Warm and dry, no erythematous rash. DIAGNOSTIC DATA: EKG pending. Impression: 7.4 mm proximal right ureteral calculus Plan: To OR today for stent placement. Staged ureteroscopy with laser lithotripsy at a later date once ureteral dilation has occur red with stent. Staged procedures explained to patient again, and informed consent obtained again today. He wishes to proceed as outlined. Continue IV Cipro for now. documented in this en counter H&P Notes Andrae Wilkins MD - 07/28/2016 9:[facility] H[facility]ORY AND PHYSICAL UPDATE Pt. Name/Age/: Hemant Isidro 51 y.o. 1965 Date of admission: 07/27/2016 The most current H&P was reviewed. The patient was reexamined. Re-evaluation of the patie nt confirms the necessity for the scheduled procedure. No change has occurred in the patien t s condition since the H&P was completed less than 30 days ago. No change in exam of hea rt and lungs. Stone still in upper ureter on KUB. I have again today verified that the pat ient has a clear understanding of the treatment options, the selected procedure, the potenti al benefits and risks, and that there are no additional questions at this time. Electronically signed by: Andrae Wilkins, 07/28/2016 9:32 [facility] Andrae Salinas MD - 07/27/2016 5:12 PM PDT ADMISSION HISTORY AND PHYSICAL Hemant is a 51 y.o. male patient referred by [facility]'s ER and is being seen today for a r ight ureteral stone. CC: 7 mm proximal right ureteral calculus HPI: Hemant reports that he was in his usual state of good health until he began having kruse dden onset of right back and flank pain which commenced on approximately 07/25/2016. His carmen n waxed and waned, ultimately becoming severe this morning, prompting a visit to the emergen cy room at [facility]. He states his pain starts in the right flank and radiates to the back and radiates to the r ight groin region. He reports a prior history of a kidney stone which passed spontaneously about 15 years ago. He denies any dysuria or hematuria. He denies any urinary tract infections. He has had na usea but no emesis. He denies any fever or chills. He denies any changes in his bowel habits. He denies any hematochezia or melena. He has had occasional boils, change in energy, abdominal pain and nausea, otherwise, 10 poi nt review of systems is negative. He was evaluated at [facility], and CT imaging demonstrated a 7 mm stone in the proximal right ureter at the ureteropelvic junction with hydronephrosis. Because of th e large size of the stone, he is referred to my office for evaluation. I specifically asked the ER provider to make sure that Hemant remained NPO until he arrived in my office, but he reports that he had a bag of Cheetos and a soda at about 3:15 p.m. bre lerma. He recently moved to [place] from [place]. 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 Past Medical History He has a past medical history of High cholesterol and Kidney stones. Past Surgical History No prior surgical procedures Family History: His family history includes Gallstones in his sister and sister; Hypertension in his mother ; Prostate cancer in his father. Social History: He reports that he has been smoking Cigarettes. He started smoking about 36 years ago. He has been smoking about 1.00 pack per day. He has never used smokeless tobacco. No Known Allergies Medications: No outpatient encounter prescriptions on file as of 07/27/2016. No facility-administered encounter medications on file as of 07/27/2016. REVIEW OF SYSTEMS: [ ] All Negative Constitutional Symptoms: [ ]Fever [ ]Chills [ ]Headache [ ]Change in appetite [ ] Change i n weight [X] Change in energy [ ]Other: Neurological: [ ]Tremors [ ]Dizzy Spells [ ]Numbness/Tingling [ ]Seizures [ ]Other: Endocrine: [ ]Excessive thirst [ ]Too hot [ ] Too cold [ ]Tired/Sluggish Gastrointestinal: [X]Abdominal pain [X]Nausea/vomiting [ ]Indigestion/heartburn [ ]Soto ge in stool size [ ] Change in stool shape [ ] Change in stool color [ ]Pain with swallowing [ ]Other: Cardiovascular: [ ]Chest Pain [ ]Rapid heart rate [ ]High blood pressure [ ]Other: Integumentary: [ ]Skin rash [X]Boils [ ]Persistent itch [ ]Other: Musculoskeletal: [ ]Neck Pain [ ]Joint swelling/pain [ ]Back pain [ ]Bone pain [ ]Other: Respiratory: [ ]Wheezing [ ]Frequent cough [ ]Shortness of breath [ ]Other: Hematologic/Lymphatic: [ ]Swollen glands [ ]Blood clotting problems [ ]Prior blood transfusions [ ]Other: Psychologic: Are you generally satisfied with your life? yes Do you feel severely depressed? no Have you considered suicide? no Other: Habits: Do you smoke? yes [X] Yes [ ] No Patient advised to follow up with PCP regarding positive review of syst ems. PHYSICAL EXAM Vitals: BP 121/60 mmHg | Pulse 88 | Resp 18 | Ht 1.702 m (5' 7") | Wt 149.188 kg (328 lb 14 .4 oz) | BMI 51.50 kg/m2 General: Awake, alert, in no acute distress. Speech is fluent. Appears to be stated age. Does not appear ill or toxic. Does not appear to be having any pain. Neck: Supple; no lymphadenopathy. HENT: Atraumatic, external ears normal, nose normal, oropharynx moist, no pharyngeal exudat es. Lungs: Mildly tachypneic at rest. Clear to auscultation bilaterally. Heart: Normal rate, normal rhythm, no murmurs, no gallops, no rubs. Chest: No rib or bony tenderness. Back: No CVA tenderness. Abdomen: Soft, morbidly obese, bowel tones normal active, no hepatosplenomegaly. No masses , but examination markedly limited by his girth. No guarding; benign. Bladder nondistended. Large pannus, with vitiligo changes. No flank mass. Extremities: Trace ankle edema bilaterally. Hips and long bones nontender to fist percussi on. Neuro: Awake, alert, oriented x3. Normal station and slow gait. Psychiatric: Mood and affect are normal. Normal judgment. Skin: Warm and dry, no erythematous rash. Genitalia: Penis is obscured by a large suprapubic fat pad. Severe scarring of the foresk in, phimotic, making it impossible to retract the foreskin. Foreskin appears chronically in flamed. Vitiligo changes of scrotum. No testicular or epididymal masses or nodules or lesi on or tenderness. DIAGNOSTIC DATA: CT imaging 07/27/2016 from [facility] is personally reviewed with the patien t. The ER did not send along a radiology report. By my review, his CT demonstrates a 7.4 m illimeter stone at the right UPJ with mild right hydronephrosis. No additional renal or ure teral calculi are visualized on either side. CBC 07/27/2016 shows WBC 10.1, hemoglobin 14.6, hematocrit 46.9, platelets 310. Chemistry panel 07/27/2016 demonstrates creatinine 0.93, BUN 14, potassium 3.9, sodium 137, chloride 104, CO2 25, calcium 9.2, normal liver function testing. Urinalysis 07/27/2016 shows 30 RBC, 15 WBC, no epithelial cells, 1+ bacteria. IMPRESSION: 1. 7.4 mm proximal right ureteral calculus. 2. Right hydronephrosis. 3. Severe right renal colic. Minimal pain at this time following treatment at [facility]. 4. Morbid obesity. 5. Postcircumcision phimotic foreskin deformity. I'm suspicious that this is the source o f his pyuria and bacteriuria seen on urinalysis testing. PLAN: Admit to observation for IV antibiotics and parenteral analgesics. Surgical treatment dire cted at alleviating his right ureteral obstruction tomorrow when he has been NPO. I gave Hemant a pamphlet describing kidney stones and treatment options available, and we re viewed this together. His body mass index is much too large to allow PCNL or ESWL. We discussed performing ureteroscopy with laser lithotripsy. I advised him that attempting ureteroscopy and laser lithotripsy in an unstented ureter has a higher complication rate th an if he is pre-stented. Therefore, I advised Hemant that he should have a right ureteral stent placed, followed by a staged ureteroscopy with laser lithotripsy procedure in the future. Unfortunately, he has not been compliant with my request for him to be NPO, and so I will admit him to observation , with the intent of placing a stent tomorrow. The risks, benefits, and alternatives of cystoscopy, and right ureteral stent placement are discussed with Hemant in detail. Risks are to include, but are not limited to bleeding, pain, infection, failure of the proc edure, inability to place the stent, ureteral injury, ureteral perforation, need for additio nal procedures, inherent irritability and discomfort associated with a ureteral stent, inher ent risks of any surgical procedure and anesthesia including DVT, PE, MA, CVA, and even deat h. Hemant indicates his understanding, and indicates a desire to proceed as outlined. No guara ntees are given or implied. His surgical procedure will be performed tomorrow when he is NPO. Given his pyuria and bacteriuria, IV Cipro will be administered now. Elements of a kidney stone risk reduction diet are reviewed with Hemant in detail. I recomm ended that he increase water intake to target a urinary output of 2 L per day. I gave Hemant a list of foods containing oxalates, and I recommended a low oxalate diet, with instruction s to minimize oxalate consumption to 40-50 mg per day. I also recommended a low sodium, low animal protein, low fat, high citrate diet. Hemant is instructed to establish care with a primary care provider. This document was generated in part using voice recognition software. Although I have atte mpted to edit the content, I have not thoroughly proofread this note, and cvt rn erro rs may occur. documented in this en counter Miscellaneous Notes Plan of Care - Vita Allen RN - 07/28/2016 4:57 PM PDTProblem: Patient Care Overview (Adult) Goal: Care Team Goals & Evaluation PROBLEM-RELATED GOALS: 1. Pt s pain will be controlled with oral or IV medication and be kept at <4 by 07/29/16 2. Pt will be able to dc tomorrow after surgery with any issues. 3. Will keep NPO and increase diet as ordered by 07/28/2016 4. Will urinate without difficulties by 07/29/1016 Will maintain hydration WDL by 07/29/2016 6. Prevent post operative hypoxia 7. Monitor for sleep apnea STRATEGY TO ACHIEVE GOALS: 1. Medicate for pain with Tatamy or Morphine 2. Assist pt with preparing for surgery. Will administed antibiotics as ordered and monitor for s/s of infection. Will maintain IV fluids and increase PO fluids as ordered. Will monitor intake and output. 6. Titrate oxygen to room air keeping oxygen saturation at or >92% by 07/31/16 7. Monitor for sleep apnea (etco2) til 07/31/16 RESTRAINT-RELATED GOALS: STRATEGIES TO ACHIEVE RESTRAINT GOALS: Outcome: Adequate for Discharge Date Met: 07/28/16 Goal Evaluation: Pt tolerated procedure well and was able to void and tolerate diet and had no pain or naus ea. Did have postop hypoxia however and Dr Wilkins decided to send pt home on O2 at [facility]. Pt s ats would drop down to low 80's when sleeping. Pt stated that he did have a sleep study done at one time but was unable to complete it because he was not able to sleep very well. Encou rage pt to get another study done. Pt does not have a primary doctor, to encouraged pt to ob tain that as well. Teaching provided to pt re: home O2 care. NO smoking when on O2 in the ro om with O2 ect. Pt states his sister has O2 and he is aware of precautions, but we still dante t over them. Pt only needs to wear 2 liters of O2 at [facility]. Med rec reviewed with pt and presc riptions given to pt for pain med and abtx. Pt stated he understands dc instructions and robe e O2 use. Pt was assisted out to car via w/c. lan of Care - Rosalina Caldera RN - 07/28/2016 4:57 PM PDTDischarge orders received for patient to return t o home in [place]. Patient has an order for nocturnal home oxygen. Patient preference is to go through [facility]. Oxygen orders and supporting documentation have been faxed to [facility] in [place]. This CM placed a phone call to [facility], they confirmed that they have received th e orders and will contact the patient to set up the home oxygen. I have also given the patient the phone number for [facility] so that they can also contact them once at home. Patient declines the need for any home health services. Preference form completed, signed and placed in the patients ghost chart. He has family in the room that will be his transportation home. Electronically signed by: Rosalina Ortiz RN 07/28/2016 17:35 lan of Care - Andrae Carmona, KRISTAN - 07/28/2016 12:56 PM PDTProblem: Patient Care Overview (Adult) Goal: Care Team Goals & Evaluation PROBLEM-RELATED GOALS: 1. Pt s pain will be controlled with oral or IV medication and be kept at <4 by 07/29/16 2. Pt will be able to dc tomorrow after surgery with any issues. 3. Will keep NPO and increase diet as ordered by 07/28/2016 4. Will urinate without difficulties by 07/29/1016 Will maintain hydration WDL by 07/29/2016 6. Prevent post operative hypoxia 7. Monitor for sleep apnea STRATEGY TO ACHIEVE GOALS: 1. Medicate for pain with Tatamy or Morphine 2. Assist pt with preparing for surgery. Will administed antibiotics as ordered and monitor for s/s of infection. Will maintain IV fluids and increase PO fluids as ordered. Will monitor intake and output. 6. Titrate oxygen to room air keeping oxygen saturation at or >92% by 07/31/16 7. Monitor for sleep apnea (etco2) til 07/31/16 RESTRAINT-RELATED GOALS: STRATEGIES TO ACHIEVE RESTRAINT GOALS: Goal Evaluation:patient back from surgery and was observed dropping his oxygen saturation d own to 89-90%, oxygen 2 l/m started. RN notified. p Note - Andrae Wilkins MD - 07/28/2016 10:42 AM PDTOperative Note Pt. Name/Age/: Hemant Isidro 51 y.o. 1965 Med. Record Number: [id number] Date of Operation/Procedure: 07/28/2016 Preoperative Diagnosis: Proximal right ureteral calculus Right hydronephrosis Right renal colic Postoperative Diagnosis: Proximal right ureteral calculus Right hydronephrosis Right renal colic Surgeon: Andrae Wilkins MD Youth Care Worker(s): None Anesthesia Provider(s): Anesthesiologist: Enrico Simental MD Anesthesia Type: General Procedure: 1. Cystoscopy 2. Right Ureteral stent placement Operative Indications: Hemant Isidro is a 51 y.o. year old male who presents with findings suggesting hydronephrosis and ureteral obstruction due to a large proximal right u reteral stone. Hemant was counseled and consented to proceed. The risks, benefits, complications, treatment options, and expected outcomes were discussed with Hemant. Hemant gave informed consent to proceed to the operating room for endoscopic robert luation and treatment. Discussed risks, including infection, bleeding, failure to access ur eter, possible severe ureteral injury, need for prolonged stent, stent irritation, hematuria , failure to diagnose, inability to treat encountered pathology, inability to place a stent, inherent risks of surgery, anesthetic complications. Hemant understands and consents to pr oceed. Operative Findings: Cystoscopy noted no bladder tumors or lesions. Radiographic Findings: A large, elongated stone in the proximal right ureter. Operation: Under the benefit of general anesthesia, the patient was prepped and draped in the usual sterile fashion in a low lithotomy position. Arms and legs were carefully padded and positioned to prevent any injury. An appropriate time out was held prior to the procedu re. Preoperative antibiotics and SCD's were applied as per protocol. Preoperative images w ere displayed on the imaging monitor. A rigid cystoscope was then placed through the urethra into the bladder and the bladder was systematically surveyed and investigated, and the above findings were readily noted. A Sensor guidewire was placed under fluoroscopic guidance up into the renal pelvis. A 6-[place] X 28 cm double-J stent was placed over the guidewire with a proximal curl confir med by fluoroscopy while the distal curl was confirmed by cystoscopy. The bladder was then drained through the cystoscope, and the scope was removed. Fluoroscopy once again confirmed appropriate stent positioning. No suture tether was left attached to the patient's stent. The patient was then awakened from anesthesia and sent to recovery in stable condition. I anticipate he will need right ureteroscopy and laser lithotripsy in the future. Estimated Blood Loss: None Transfused: No Drains: None Specimen (s): None Complications: None Patient Condition: Stable Disposition: Discharge home when stable. The patient will return in approximately 5-7 days for KUB and follow up evaluation. Electronically Signed by: Andrae Wilkins, 07/28/2016 10:42 [facility] lan of Care - Parrish Norris RN - 07/28/2016 4:34 AM PDTProblem: Patient Care Overview (Adult) Goal: Care Team Goals & Evaluation PROBLEM-RELATED GOALS: 1. Pt s pain will be controlled with oral or IV medication and be kept at <4 by 07/29/16 2. Pt will be able to dc tomorrow after surgery with any issues. 3. Will keep NPO and increase diet as ordered by 07/28/2016 4. Will urinate without difficulties by 07/29/1016 Will maintain hydration WDL by 07/29/2016 STRATEGY TO ACHIEVE GOALS: 1. Medicate for pain with Tatamy or Morphine 2. Assist pt with preparing for surgery. Will administed antibiotics as ordered and monitor for s/s of infection. Will maintain IV fluids and increase PO fluids as ordered. Will monitor intake and output. RESTRAINT-RELATED GOALS: STRATEGIES TO ACHIEVE RESTRAINT GOALS: Outcome: Improving Goal Evaluation: Patient doing well. Pain to right lower back/right flank well controlled with IV morphine 1 mg. IV fluids continued. Currently NPO. No stones in urine detected. Voiding without diffi culties. Antibiotics administered as scheduled. No other changes to assesement. lan of Care - [facility], Vita Luque RN - 07/27/2016 8:30 PM PDTProblem: Patient Care Overview (Adult) Goal: Care Team Goals & Evaluation PROBLEM-RELATED GOALS: 1. Pt s pain will be controlled with oral or IV medication and be kept at <4 by 07/29/16 2. Pt will be able to dc tomorrow after surgery with any issues. STRATEGY TO ACHIEVE GOALS: 1. Medicate for pain with Tatamy or Morphine 2. Assist pt with preparing for surgery. RESTRAINT-RELATED GOALS: STRATEGIES TO ACHIEVE RESTRAINT GOALS: Outcome: Improving Goal Evaluation: Pt admitted for observation status this evening for planned cystoscopy tomorrow with stent placement. Pt is having moderate right flank pain and is requiring IV pain medication and iv abtx. Pt was unable to have procedure today d/t taking in po. documented in this encounter Plan of Treatment + +------+--------+ + + | Name | Type | Priori | Associated Diagnoses | Order Schedule | | | | ty | | | + +------+--------+ + + | DME: Oxygen Therapy | DME | Routin | Postoperative | Ordered: 07/28/2016 | | | | e | hypoxia | | + +------+--------+ + + documented as of this encounter Procedures + +--------+ + + + | Procedure Name | Priori | Date/Time | Associated Diagnosis | Comments | | | ty | | | | + +--------+ + + + | RESPIRATORY THERAPY | Routin | 07/28/2016 | | | | COMMUNICATION | e | 12:48 PM | | | | | | PDT | | | + +--------+ + + + | FL PYELOGRAM | Routin | 07/28/2016 | | Results for this | | RETROGRADE | e | 10:29 AM | | procedure are in the | | | | PDT | | results section. | + +--------+ + + + | CYSTOSCOPY PLACEMENT | | 07/28/2016 | Right ureteral | | | URETERAL STENT | | 9:30 AM | stone | | | | | PDT | Hydronephrosis, | | | | | | right Renal colic | | | | | | on right side | | + +--------+ + + + | XR ABDOMEN AP | Routin | 07/28/2016 | | Results for this | | | e | 8:30 AM | | procedure are in the | | | | PDT | | results section. | + +--------+ + + + | ECG 12 LEAD | STAT | 07/28/2016 | | Results for this | | | | 7:57 AM | | procedure are in the | | | | PDT | | results section. | + +--------+ + + + | CT ABDOMEN PELVIS W | Routin | 07/27/2016 | | Results for this | | CONTRAST | e | 12:20 PM | | procedure are in the | | | | PDT | | results section. | + +--------+ + + + documented in this encounter Results FL Pyelogram Retrograde (07/28/2016 10:29 AM PDT) + + | Specimen | + + | | + + + + + | Narrative | Performed At | + + + | FLUOROSCOPY FOR RIGHT URETERAL STENT PLACEMENT 07/28/2016 9:50 AM | [facility] | | CLINICAL HISTORY: intra op, ureteral calculus COMPARISON: | | | Preceding radiographs and CT FINDINGS: Two fluoroscopic spot | | | images are submitted and demonstrate interval placement of a double-J | | | right ureteral stent, extending from the mid abdomen into the pelvic | | | cavity. An ovoid density along the proximal course of the stent | | | corresponds with the previously described proximal right ureteral | | | calculus. IMPRESSION - 1. FLUOROSCOPY FOR RIGHT URETERAL STENT | | | PLACEMENT. PLEASE SEE THE OPERATIVE REPORT FOR FURTHER DETAILS. | | | Dictated and Signed by: Pablito Aquino MD Electronically signed: | | | 07/28/2016 10:54 AM | | + + + + + | Procedure Note | + + | Chris, Rad Results In - 07/28/2016 10:57 AM PDT FLUOROSCOPY FOR RIGHT URETERAL STENT | | PLACEMENT 07/28/2016 9:50 AMCLINICAL HISTORY: intra op, ureteral calculusCOMPARISON: | | Preceding radiographs and CTFINDINGS: Two fluoroscopic spot images are submitted and | | demonstrate intervalplacement of a double-J right ureteral stent, extending from the mid | | abdomeninto the pelvic cavity. An ovoid density along the proximal course of the | | stentcorresponds with the previously described proximal right ureteral | | calculus.IMPRESSION -1. FLUOROSCOPY FOR RIGHT URETERAL STENT PLACEMENT. PLEASE SEE | | THE OPERATIVEREPORT FOR FURTHER DETAILS.Dictated and Signed by: Pablito Aquino MD | | Electronically signed: 07/28/2016 10:54 AM | |corresponds with the previously described proximal right ureteral calculus. | | | |IMPRESSION - | |1. FLUOROSCOPY FOR RIGHT URETERAL STENT PLACEMENT. PLEASE SEE THE OPERATIVE | |REPORT FOR FURTHER DETAILS. | | | |Dictated and Signed by: Pablito Aquino MD | | Electronically signed: 07/28/2016 10:54 AM | + + + +---------+ + + | Performing | Address | City/State/Zipcode | Phone Number | | Organization | | | | + +---------+ + + | [facility] | | | | + +---------+ + + XR Abdomen AP (07/28/2016 8:30 AM PDT) + + | Specimen | + + | | + + + + + | Narrative | Performed At | + + + | XR ABDOMEN 1 VW 07/28/2016 8:29 AM HISTORY: RIght UPJ stone. | [facility] | | COMPARISON: CT scan 07/27/2016. FINDINGS: Again visualized is the | | | right ureteral stone at the level of L3, which is in a relatively | | | stable position compared to the CT scan of 07/27/2016. There is a | | | nonobstructive bowel gas pattern with no definite evidence for free | | | air. Moderate stool retention is seen. There is mild to moderate | | | spondylosis. IMPRESSION - Right ureteral stone at level of L3, | | | which is relatively stable. Dictated and Signed by: Eusebio Gary | | | Electronically signed: 07/28/2016 9:36 AM | | + + + + + | Procedure Note | + + | Chris, Rad Results In - 07/28/2016 9:39 AM PDT XR ABDOMEN 1 VW 07/28/2016 8:29 AM | | | | HISTORY: RIght UPJ stone. | | | | COMPARISON: CT scan 07/27/2016. | | | | FINDINGS: | | Again visualized is the right ureteral stone at the level of L3, which is in a | | relatively stable position compared to the CT scan of 07/27/2016. There is a | | nonobstructive bowel gas pattern with no definite evidence for free air. | | Moderate stool retention is seen. There is mild to moderate spondylosis. | | | | IMPRESSION - | | Right ureteral stone at level of L3, which is relatively stable. | | | | Dictated and Signed by: Eusebio Gary MD | | Electronically signed: 07/28/2016 9:36 AM | + + + +---------+ + + | Performing | Address | City/State/Zipcode | Phone Number | | Organization | | | | + +---------+ + + | [facility] | | | | + +---------+ + + ECG 12 lead (07/28/2016 7:57 AM PDT) + + + + + + | Component | Value | Ref Range | Performed | Pathologist | | | | | At | Signature | + + + + + + | VENTRICULAR | 84 | BPM | [facility] | | | RATE EKG | | | | | + + + + + + | ATRIAL RATE | 84 | BPM | [facility] | | + + + + + + | P-R | 140 | ms | [facility] | | | INTERVAL | | | | | + + + + + + | QRS | 102 | ms | [facility] | | | DURATION | | | | | + + + + + + | Q-T | 392 | ms | [facility] | | | INTERVAL | | | | | + + + + + + | Q-T | 463 | ms | [facility] | | | INTERVAL | | | | | | (CORRECTED) | | | | | + + + + + + | P WAVE AXIS | 69 | degrees | [facility] | | + + + + + + | QRS AXIS | 37 | degrees | [facility] | | + + + + + + | T AXIS | 40 | degrees | [facility] | | + + + + + + | INTERPRETAT | Normal sinus | | [facility] | | | ION TEXT | rhythmIncomplete right | | | | | | bundle branch | | | | | | blockBorderline ECGNo | | | | | | previous ECGs | | | | | | availableConfirmed by | | | | | | GREGORIA DIAZ MD ([id number]) | | | | | | on 07/28/2016 9:32:23 AM | | | | + + + + + + + + | Specimen | + + | | + + + + + | Narrative | Performed At | + + + | | | + + + + +---------+ + + | Performing | Address | City/State/Zipcode | Phone Number | | Organization | | | | + +---------+ + + | [facility] | | | | + +---------+ + + CT Abdomen Pelvis w Contrast (07/27/2016 12:20 PM PDT) + + | Specimen | + + | | + + + + + | Narrative | Performed At | + + + | External films for comparison only - no result from [facility]. | [facility] | + + + + +---------+ + + | Performing | Address | City/State/Zipcode | Phone Number | | Organization | | | | + +---------+ + + | [facility] | | | | + +---------+ + + documented in this encounter Visit Diagnoses + + | Diagnosis | + + | Ureteral calculus, right - Primary Calculus of ureter | + + | Hydronephrosis, right Hydronephrosis | + + | Renal colic on right side Renal colic | + + | Postoperative hypoxia | + + documented in this encounter [...] | | +---+---+ + +-------+ +--------+---+---+ | docusate sodium (COLACE) | Given | 07/27/20 | 100 mg | | | | capsule 100 mg 100 mg, Oral, 2 | | 16 8:43 | | | | | TIMES DAILY, First dose on Tue | | PM PDT | | | | | 07/27/16 at 2100, Hold for loose | | | | | | | stools, | | | | | | + +-------+ +--------+---+---+ +---+---+ | | | +---+---+ + +-------+ +-------+---+---+ | famotidine (PEPCID) tablet 20 | Given | 07/27/20 | 20 mg | | | | mg 20 mg, Oral, 2 TIMES DAILY, | | 16 8:43 | | | | | First dose on Tue07/27/16 at 2100 | | PM PDT | | | | + +-------+ +-------+---+---+ +---+---+ | | | +---+---+ + +-------+ + +---+---+ | HYDROcodone-acetaminophen | Given | 07/27/20 | 1 tablet | | | | (NORCO) 5-325 mg per tablet 1-2 | | 16 8:20 | | | | | tablet 1-2 tablet, Oral, EVERY 4 | | PM PDT | | | | | HOURS PRN, Pain, Pain, Starting | | | | | | | Tue07/27/16 at 1715, If | | | | | | | ineffective use Tatamy 10/325 if | | | | | | | ordered. If not tolerated, use | | | | | | | Percocet then Oxycodone if | | | | | | | ordered. MAX 12 tabs/24 hrs., | | | | | | + +-------+ + +---+---+ +-------+ + +---+---+ | Given | 07/27/20 | 1 tablet | | | | | 16 6:58 | | | | | | PM PDT | | | | +-------+ + +---+---+ +---+---+ | | | +---+---+ + +---------+ +---+-------+---+ | lactated ringers (LR) infusion | New Bag | 07/28/20 | | 100 | | | at 10-100 mL/hr, Intravenous, | | 16 9:11 | | mL/hr | | | CONTINUOUS, Starting 07/28/16 | | AM PDT | | | | | at 0915, TKO., Pre-op | | | | | | + +---------+ +---+-------+---+ +---+---+ | | | +---+---+ + +-------+ +------+---+---+ | morphine injection 1-2 mg 1-2 | Given | 07/27/20 | 1 mg | | | | mg, Intravenous, EVERY 1 HOUR | | 16 8:20 | | | | | PRN, Pain, Starting Tue07/27/16 | | PM PDT | | | | | at 1715, Slow IV push, not faster | | | | | | | than 2 mg/minute. If ineffective | | | | | | | or not tolerated, use | | | | | | | hydromorphone IV if ordered, | | | | | | + +-------+ +------+---+---+ +---+---+ | | | +---+---+ + +---------+ +---------+---+ + | nicotine (NICODERM) 21 mg/24 hr | Patch | 07/27/20 | 1 patch | | Arm-Righ | | 1 patch 1 patch, Transdermal, | Applied | 16 6:53 | | | t Upper | | DAILY, First dose on Tue07/27/16 | | PM PDT | | | | | at 1745 | | | | | | + +---------+ +---------+---+ + +---+---+ | | | +---+---+ + +-------+ +--------+---+---+ | phenazopyridine (PYRIDIUM) | Given | 07/28/20 | 200 mg | | | | tablet 200 mg 200 mg, Oral, | | 16 11:32 | | | | | ONCE, 07/28/16 at 1145, For 1 | | AM PDT | | | | | dose, Post-op/Phase II | | | | | | + +-------+ +--------+---+---+ +---+---+ | | | +---+---+ + +---------+ +---+-------+---+ | sodium chloride 0.9% (NS) | New Bag | 07/28/20 | | 125 | | | infusion at 125 mL/hr, | | 16 4:06 | | mL/hr | | | Intravenous, CONTINUOUS, Starting | | AM PDT | | | | | 07/27/16 at 1745 | | | | | | + +---------+ +---+-------+---+ +---------+ +---+-------+---+ | New Bag | 07/27/ | | 125 | | | | 16 6:53 | | mL/hr | | | | PM PDT | | | | +---------+ +---+-------+---+ +---+---+ | | | +---+---+ documented in this encounter
--- OUTSIDE RECORDS SUMMARY | ~2020-08-27 | XMS | Encounter Summary ---
Demographics + + + | Address | [address] | | | [place] [address] | + + + | Home Phone [...] Author + + + | Author | [facility] | | | and [place] | + + + | Organization | [facility] | | | [...] Team Providers + +------+ + | Care Ice Guard Tester Name | Role | Phone | + +------+ + | No, Physician | PCP | Unavailable | + +------+ + Encounter Details +--------+ + + + + | Date | Type | Department | Care Team | Description | +--------+ + + + + | 08/11/ | Abstract | [facility] | Andrae Wilkins, | | | 2015 | | [address] | [address] | | | | | [place] | [place] | | | | | [id number] | [id number] | | | | | [phone] | | | +--------+ + + + [...] | + +--------+ + + + | EXTERNAL LAB: PSA | Routin | 08/09/2016 | | Results for this | | | e | | | procedure are in the | | | | | | results section. | + +--------+ + + + | EXTERNAL LAB: CBC | Routin | 08/09/2016 | | Results for this | | | e | | | procedure are in the | | | | | | results section. | + +--------+ + + + | CBC WITH | Routin | 08/09/2016 | | Results for this | | DIFFERENTIAL | e | | | procedure are in the | | | | | | results section. | + +--------+ + + + documented in this encounter Results CBC with Differential (08/09/2016) + +-------+ + + + | Component | Value | Ref Range | Performed | Pathologist | | | | | At | Signature | + +-------+ + + + | [facility] | 29.0 | 26.0 - 33.0 pg | | | + +-------+ + + + | [facility] | 33.0 | 31.0 - 37.0 % | | | + +-------+ + + + | % Basophils | 1.0 | 1.0 % | | | + +-------+ + + + + + | Specimen | + + | Blood specimen | | (specimen) | + + External Lab: PSA (08/09/2016) + +-------+ + + + | Component | Value | Ref Range | Performed | Pathologist | | | | | At | Signature | + +-------+ + + + | PSA, | 0.322 | 0 - 4 | EXTERNAL | | | External | | | LAB | | + +-------+ + + + + +---------+ + + | Performing | Address | City/State/Zipcode | Phone Number | | Organization | | | | + +---------+ + + | EXTERNAL LAB | | | | + +---------+ + + External Lab: CBC (08/09/2016) + + + + + + | Component | Value | Ref Range | Performed | Pathologist | | | | | At | Signature | + + + + + + | WBC, | 9.2 | 4.5 - 11 | EXTERNAL | | | External | | | LAB | | + + + + + + | HGB, | 13.2 (A) | 13.5 - 18 | EXTERNAL | | | External | | | LAB | | + + + + + + | HCT, | 40.3 (A) | 41 - 50 | EXTERNAL | | | External | | | LAB | | + + + + + + | PLT, | 275 | 140 - 440 | EXTERNAL | | | External | | | LAB | | + + + + + + | Neutrophils | 57.4 | 39 - 80 | EXTERNAL | | | %, | | | LAB | | | External | | | | | + + + + + + | Lymphocytes | 30.5 | 24 - 44 | EXTERNAL | | | %, | | | LAB | | | External | | | | | + + + + + + | Monocytes | 7.6 | 0 - 12 | EXTERNAL | | | %, External | | | LAB | | + + + + + + | Eosinophils | 3.5 | 0 - 6 | EXTERNAL | | | %, | | | LAB | | | External | | | | | + + + + + + | RBC, | 4.6 | 4.3 - 5.7 | EXTERNAL | | | External | | | LAB | | + + + + + + | MCV, | 88 | 81 - 99 | EXTERNAL | | | External | | | LAB | | + + + + + + | RDW, | 14.7 | 10.5 - 15 | EXTERNAL | | | External | | | LAB | | + + + + + + + +---------+ + + | Performing | Address | City/State/Zipcode | Phone Number | | Organization | | | | + +---------+ + + | EXTERNAL LAB | | | | + +---------+ + + documented in this encounter Visit Diagnoses Not on filedocumented in this encounter"
--- OUTSIDE RECORDS SUMMARY | ~2020-08-27 | XMS | Encounter Summary ---
Demographics + + + | Address | [address] | | | [place] [address] | + + + | Home Phone | | + + + | Preferred Language | Unknown | + + + | Marital Status | Single | + + + | Yazidi Affiliation | 1028 | + + + | Race | White | + + + | Ethnic Group | Not or | + + + Author + + + | Author | [facility] | | | and [place] | + + + | Organization | [facility] | | [...] Team Providers + +------+ + | Care Laser Beam Cutter Name | Role | Phone | + +------+ + | No, Physician | PCP | Unavailable | + +------+ + Reason for Visit +--------+--------+ + | Reason | Onset | Comments | | | Date | | +--------+--------+ + | Other | 02/21/ | attemted to reach pt. to reschedule HST (home sleep | | | 2016 | study) | +--------+--------+ + Encounter Details +--------+ + + + + | Date | Type | Department | Care Team | Description | +--------+ + + + + | 02/21/ | Telephone | [facility] | Sam Hilliard, | Other (attemted to | | 2017 | | [facility] | Neurodiagnostic Tech | reach pt. to | | | | [address] | | reschedule HST (home | | | | [place] | | sleep study)) | | | | [phone] | | | | | | [phone] | | | +--------+ + + + [...] this encounter Miscellaneous Notes Telephone Encounter - Catalino Lazaro I-MD - 02/21/2017 2:05 PM PDTThe pt. Has NO SHOWED 2 scheduled appts. 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 Numerous calls have been made in an a ttempt to reschedule the pt. without success. We are removing the pt. from our worqueues and his referring physician Andrae Wilkins will be notified of this. documented in this encounter Plan of Treatment Not on filedocumented as of this encounter Visit Diagnoses Not on filedocumented in this encounter"
--- OUTSIDE RECORDS SUMMARY | ~2020-08-27 | XMS | Encounter Summary ---
Demographics + + + | Address | [address] | | | [place] [address] | + + + | Home Phone | | + + + | Preferred Language | Unknown | + + + | Marital Status | Single | + + + | Restoration Affiliation | 1028 | + + + | Race | White | + + + | Ethnic Group | Not or | + + + Author + + + | Author | [facility] | | | and [place] | + + + | Organization | [facility] | | | [...] Team Providers + +------+ + | [employer] Name | Role | Phone | [...] JEROME AGUILAR | | | | | [id number] | [id number] | | | | | [phone] | | | +--------+ + + + [...] +--------+ + + + | EXTERNAL LAB: BUN | Routin | 07/27/2016 | | Results for this | | | e | | | procedure are in the | | | | | | results section. | + +--------+ + + + | EXTERNAL LAB: | Routin | 07/27/2016 | | Results for this | | GLUCOSE | e | | | procedure are in the | | | | | | results section. | + +--------+ + + + | EXTERNAL LAB: ALT | Routin | 07/27/2016 | | Results for this | | | e | | | procedure are in the | | | | | | results section. | + +--------+ + + + | EXTERNAL LAB: AST | Routin | 07/27/2016 | | Results for this | | | e | | | procedure are in the | | | | | | results section. | + +--------+ + + + | EXTERNAL LAB: | Routin | 07/27/2016 | | Results for this | | ALKALINE PHOSPHATASE | e | | | procedure are in the | | | | | | results section. | + +--------+ + + + | EXTERNAL LAB: | Routin | 07/27/2016 | | Results for this | | BILIRUBIN, TOTAL | e | | | procedure are in the | | | | | | results section. | + +--------+ + + + | EXTERNAL LAB: | Routin | 07/27/2016 | | Results for this | | ALBUMIN | e | | | procedure are in the | | | | | | results section. | + +--------+ + + + | EXTERNAL LAB: | Routin | 07/27/2016 | | Results for this | | PROTEIN, TOTAL | e | | | procedure are in the | | | | | | results section. | + +--------+ + + + | EXTERNAL LAB: | Routin | 07/27/2016 | | Results for this | | CALCIUM | e | | | procedure are in the | | | | | | results section. | + +--------+ + + + | EXTERNAL LAB: CARBON | Routin | 07/27/2016 | | Results for this | | DIOXIDE | e | | | procedure are in the | | | | | | results section. | + +--------+ + + + | EXTERNAL LAB: | Routin | 07/27/2016 | | Results for this | | CHLORIDE | e | | | procedure are in the | | | | | | results section. | + +--------+ + + + | EXTERNAL LAB: | Routin | 07/27/2016 | | Results for this | | POTASSIUM | e | | | procedure are in the | | | | | | results section. | + +--------+ + + + | EXTERNAL LAB: SODIUM | Routin | 07/27/2016 | | Results for this | | | e | | | procedure are in the | | | | | | results section. | + +--------+ + + + | EXTERNAL LAB: | Routin | 07/27/2016 | | Results for this | | URINALYSIS | e | | | procedure are in the | | | | | | results section. | + +--------+ + + + | EXTERNAL LAB: CBC | Routin | 07/27/2016 | | Results for this | | | e | | | procedure are in the | | | | | | results section. | + +--------+ + + + | EXTERNAL LAB: EGFR | Routin | 07/27/2016 | | Results for this | | | e | | | procedure are in the | | | | | | results section. | + +--------+ + + + | EXTERNAL LAB: | Routin | 07/27/2016 | | Results for this | | CREATININE | e | | | procedure are in the | | | | | | results section. | + +--------+ + + + | URINALYSIS, REFLEX | Routin | 07/27/2016 | | Results for this | | MICROSCOPIC AND/OR | e | | | procedure are in the | | CULTURE | | | | results section. | + +--------+ + + + | CBC WITH | Routin | 07/27/2016 | | Results for this | | DIFFERENTIAL | e | | | procedure are in the | | | | | | results section. | + +--------+ + + + | COMPREHENSIVE | Routin | 07/27/2016 | | Results for this | | METABOLIC PANEL | e | | | procedure are in the | | | | | | results section. | + +--------+ + + + documented in this encounter Results CBC with Differential (07/27/2016) + +-------+ + + + | Component | Value | Ref Range | Performed | Pathologist | | | | | At | Signature | + +-------+ + + + | MCH | 27.0 | 26.0 - 33.0 pg | | | + +-------+ + + + | MCHC | 31.0 | 31.0 - 37.0 % | | | + +-------+ + + + | % Basophils | 0.0 | 1.0 % | | | + +-------+ + + + + + | Specimen | + + | Blood specimen | | (specimen) | + + External Lab: CBC (07/27/2016) + +-------+ + + + | Component | Value | Ref Range | Performed | Pathologist | | | | | At | Signature | + +-------+ + + + | WBC, | 10.1 | 4.5 - 11 | EXTERNAL | | | External | | | LAB | | + +-------+ + + + | HGB, | 14.6 | 13.5 - 18 | EXTERNAL | | | External | | | LAB | | + +-------+ + + + | HCT, | 46.9 | 41 - 50 | EXTERNAL | | | External | | | LAB | | + +-------+ + + + | PLT, | 310 | 140 - 440 | EXTERNAL | | | External | | | LAB | | + +-------+ + + + | Neutrophils | 61.7 | 39 - 80 | EXTERNAL | | | %, | | | LAB | | | External | | | | | + +-------+ + + + | Lymphocytes | 29.3 | 24 - 44 | EXTERNAL | | | %, | | | LAB | | | External | | | | | + +-------+ + + + | Monocytes | 6.8 | 0 - 12 | EXTERNAL | | | %, External | | | LAB | | + +-------+ + + + | Eosinophils | 2.2 | 0 - 6 | EXTERNAL | | | %, | | | LAB | | | External | | | | | + +-------+ + + + | RBC, | 5.33 | 4.3 - 5.7 | EXTERNAL | | | External | | | LAB | | + +-------+ + + + | MCV, | 88 | 81 - 99 | EXTERNAL | | | External | | | LAB | | + +-------+ + + + | RDW, | 13.9 | 10.5 - 15 | EXTERNAL | | | External | | | LAB | | + +-------+ + + + + +---------+ + + | Performing | Address | City/State/Zipcode | Phone Number | | Organization | | | | + +---------+ + + | EXTERNAL LAB | | | | + +---------+ + + Comprehensive Metabolic Panel (07/27/2016) + +---------+ + + + | Component | Value | Ref Range | Performed | Pathologist | | | | | At | Signature | + +---------+ + + + | Anion Gap | 12 | mmol/L | | | + +---------+ + + + | BUN/Creatin | 15.1 | | | | | ine Ratio | | | | | + +---------+ + + + | Globulin | 3.8 (A) | 1.8 - 3.5 | | | + +---------+ + + + | Albumin/[place] | 1.0 (A) | 1.1 - 2.4 | | | | bulin Ratio | | | | | + +---------+ + + + + + | Specimen | + + | Blood specimen | | (specimen) | + + External Lab: BUN (07/27/2016) + +-------+ + + + | Component | Value | Ref Range | Performed | Pathologist | | | | | At | Signature | + +-------+ + + + | BUN, | 14 | 6 - 23 | EXTERNAL | | | External | | | LAB | | + +-------+ + + + + +---------+ + + | Performing | Address | City/State/Zipcode | Phone Number | | Organization | | | | + +---------+ + + | EXTERNAL LAB | | | | + +---------+ + + External Lab: Glucose (07/27/2016) + +---------+ + + + | Component | Value | Ref Range | Performed | Pathologist | | | | | At | Signature | + +---------+ + + + | Glucose, | 130 (A) | 70 - 100 | EXTERNAL | | | External | | | LAB | | + +---------+ + + + + +---------+ + + | Performing | Address | City/State/Zipcode | Phone Number | | Organization | | | | + +---------+ + + | EXTERNAL LAB | | | | + +---------+ + + External Lab: ALT (07/27/2016) + +-------+ + + + | Component | Value | Ref Range | Performed | Pathologist | | | | | At | Signature | + +-------+ + + + | ALT, | 22 | 7 - 62 | EXTERNAL | | | External | | | LAB | | + +-------+ + + + + +---------+ + + | Performing | Address | City/State/Zipcode | Phone Number | | Organization | | | | + +---------+ + + | EXTERNAL LAB | | | | + +---------+ + + External Lab: AST (07/27/2016) + +-------+ + + + | Component | Value | Ref Range | Performed | Pathologist | | | | | At | Signature | + +-------+ + + + | AST, | 16 | 13 - 39 | EXTERNAL | | | External | | | LAB | | + +-------+ + + + + +---------+ + + | Performing | Address | City/State/Zipcode | Phone Number | | Organization | | | | + +---------+ + + | EXTERNAL LAB | | | | + +---------+ + + External Lab: Alkaline Phosphatase (07/27/2016) + +-------+ + + + | Component | Value | Ref Range | Performed | Pathologist | | | | | At | Signature | + +-------+ + + + | ALP, | 95 | 30 - 128 | EXTERNAL | | | External | | | LAB | | + +-------+ + + + + +---------+ + + | Performing | Address | City/State/Zipcode | Phone Number | | Organization | | | | + +---------+ + + | EXTERNAL LAB | | | | + +---------+ + + External Lab: Bilirubin, Total (07/27/2016) + +-------+ + + + | Component | Value | Ref Range | Performed | Pathologist | | | | | At | Signature | + +-------+ + + + | Bilirubin, | 0.4 | 0 - 1.2 | EXTERNAL | | | Total, | | | LAB | | | External | | | | | + +-------+ + + + + +---------+ + + | Performing | Address | City/State/Zipcode | Phone Number | | Organization | | | | + +---------+ + + | EXTERNAL LAB | | | | + +---------+ + + External Lab: Albumin (07/27/2016) + +-------+ + + + | Component | Value | Ref Range | Performed | Pathologist | | | | | At | Signature | + +-------+ + + + | Albumin, | 3.8 | 3.5 - 5 | EXTERNAL | | | External | | | LAB | | + +-------+ + + + + +---------+ + + | Performing | Address | City/State/Zipcode | Phone Number | | Organization | | | | + +---------+ + + | EXTERNAL LAB | | | | + +---------+ + + External Lab: Protein, Total (07/27/2016) + +-------+ + + + | Component | Value | Ref Range | Performed | Pathologist | | | | | At | Signature | + +-------+ + + + | Protein, | 7.6 | 6 - 8 | EXTERNAL | | | Total, | | | LAB | | | External | | | | | + +-------+ + + + + +---------+ + + | Performing | Address | City/State/Zipcode | Phone Number | | Organization | | | | + +---------+ + + | EXTERNAL LAB | | | | + +---------+ + + External Lab: Calcium (07/27/2016) + +-------+ + + + | Component | Value | Ref Range | Performed | Pathologist | | | | | At | Signature | + +-------+ + + + | Calcium, | 9.2 | 8.4 - 10.2 | EXTERNAL | | | External | | | LAB | | + +-------+ + + + + +---------+ + + | Performing | Address | City/State/Zipcode | Phone Number | | Organization | | | | + +---------+ + + | EXTERNAL LAB | | | | + +---------+ + + External Lab: Carbon Dioxide (07/27/2016) + +-------+ + + + | Component | Value | Ref Range | Performed | Pathologist | | | | | At | Signature | + +-------+ + + + | Carbon | 25 | 19 - 31 | EXTERNAL | | | Dioxide, | | | LAB | | | External | | | | | + +-------+ + + + + +---------+ + + | Performing | Address | City/State/Zipcode | Phone Number | | Organization | | | | + +---------+ + + | EXTERNAL LAB | | | | + +---------+ + + External Lab: Chloride (07/27/2016) + +-------+ + + + | Component | Value | Ref Range | Performed | Pathologist | | | | | At | Signature | + +-------+ + + + | Chloride, | 104 | 95 - 112 | EXTERNAL | | | External | | | LAB | | + +-------+ + + + + +---------+ + + | Performing | Address | City/State/Zipcode | Phone Number | | Organization | | | | + +---------+ + + | EXTERNAL LAB | | | | + +---------+ + + External Lab: Potassium (07/27/2016) + +-------+ + + + | Component | Value | Ref Range | Performed | Pathologist | | | | | At | Signature | + +-------+ + + + | Potassium, | 3.9 | 3.6 - 5.1 | EXTERNAL | | | External | | | LAB | | + +-------+ + + + + +---------+ + + | Performing | Address | City/State/Zipcode | Phone Number | | Organization | | | | + +---------+ + + | EXTERNAL LAB | | | | + +---------+ + + External Lab: Sodium (07/27/2016) + +-------+ + + + | Component | Value | Ref Range | Performed | Pathologist | | | | | At | Signature | + +-------+ + + + | Sodium, | 137 | 132 - 143 | EXTERNAL | | | External | | | LAB | | + +-------+ + + + + +---------+ + + | Performing | Address | City/State/Zipcode | Phone Number | | Organization | | | | + +---------+ + + | EXTERNAL LAB | | | | + +---------+ + + External Lab: eGFR (07/27/2016) + +-------+ + + + | Component | Value | Ref Range | Performed | Pathologist | | | | | At | Signature | + +-------+ + + + | eGFR, | >60 | 60 - 99,999 | EXTERNAL | | | External | | | LAB | | + +-------+ + + + + + | Specimen | + + | Blood specimen | | (specimen) | + + + +---------+ + + | Performing | Address | City/State/Zipcode | Phone Number | | Organization | | | | + +---------+ + + | EXTERNAL LAB | | | | + +---------+ + + External Lab: Creatinine (07/27/2016) + +-------+ + + + | Component | Value | Ref Range | Performed | Pathologist | | | | | At | Signature | + +-------+ + + + | Creatinine, | 0.93 | 0.7 - 1.33 | EXTERNAL | | | External | | | LAB | | + +-------+ + + + + + | Specimen | + + | Blood specimen | | (specimen) | + + + +---------+ + + | Performing | Address | City/State/Zipcode | Phone Number | | Organization | | | | + +---------+ + + | EXTERNAL LAB | | | | + +---------+ + + Urinalysis, Reflex Microscopic and/or Culture (07/27/2016) + + + + + + | Component | Value | Ref Range | Performed | Pathologist | | | | | At | Signature | + + + + + + | COLLECTION | Clean | | | | | METHOD 1 | | | | | + + + + + + | Color | Yellow | | | | + + + + + + | Clarity, | Clear | | | | | Urine | | | | | + + + + + + | Bilirubin, | Negative | Negative | | | | Urine | | | | | + + + + + + | Urobilinoge | Normal | < 0.2 mg/dL, | | | | n, Urine | | 1.0 mg/dL, 4.0 | | | | | | mg/dL, Normal, | | | | | | 1.0 E.U./dL, | | | | | | 0.2 E.U./dL, | | | | | | 0.2 mg/dL, | | | | | | Negative, 1 | | | | | | mg/dL, <2.0 | | | | | | mg/dL | | | + + + + + + | Nitrite, | Negative | Negative | | | | Urine | | | | | + + + + + + | Bacteria, | 1+ | | | | | UA | | | | | + + + + + + | CASTS | Negative | | | | + + + + + + | CRYSTAL UA | Negative | | | | + + + + + + | Epithelial | Negative | | | | | Cells | | | | | + + + + + + | White Blood | 15-25 (A) | 0 - 2 /HPF | | | | Cells, | | | | | | Urine | | | | | + + + + + + + + | Specimen | + + | Urine specimen | | (specimen) | + + External Lab: Urinalysis (07/27/2016) + + + + + + | Component | Value | Ref Range | Performed | Pathologist | | | | | At | Signature | + + + + + + | UA Blood, | 250 (A) | 0 - 0 | EXTERNAL | | | External | | | LAB | | + + + + + + | UA Glucose, | Normal | | EXTERNAL | | | External | | | LAB | | + + + + + + | UA Ketones, | Negative | | EXTERNAL | | | External | | | LAB | | + + + + + + | UA Ph, | 5 | 5 - 9 | EXTERNAL | | | External | | | LAB | | + + + + + + | UA | 30 (A) | 0 - 0 | EXTERNAL | | | Proteins, | | | LAB | | | External | | | | | + + + + + + | UA RBC, | 30 (A) | 0 - 4 | EXTERNAL | | | External | | | LAB | | + + + + + + | UA Specific | 1.027 | 1.005 - 1.03 | EXTERNAL | | | [place], | | | LAB | | | External | | | | | + + + + + + | UA | 25 (A) | 0 - 0 | EXTERNAL | | | Leukocyte | | | LAB | | | Esterase, | | | | | | External | | | [...]
--- OUTSIDE RECORDS SUMMARY | ~2020-08-27 | XMS | Encounter Summary ---
Demographics + + + | Address | [address] | | | [place] [address] | + + + | Home Phone | | + + + | Preferred Language | Unknown | + + + | Marital Status | Single | + + + | Pentecostalism Affiliation | 1028 | + + + | Race | White | + + + | Ethnic Group | Not or | + + + Author + + + | Author | [facility] | | | and [place] | + + + | Organization | [facility] | | | [...] Team Providers + +------+ + | Care Fish Cutter Name | Role | Phone | + +------+ + | No, Physician | PCP | Unavailable | + +------+ + Reason for Referral Service/Procedure (Urgent) +--------+ + + + + + | [...] [address] | | | | | stone | AVE [place] | | | | | Hydronephros | [place] | | | | | is, right | [address] | [address] Phone: | | | | | Renal colic | Phone: | [phone] | | | | | on right | [phone] | Fax: | | | | | side | Fax: | [phone] | | | | | Procedures | [phone] | | | | | | IA | | | | | | | CYSTO/URETER | | | | | | | O | | | | | | | W/LITHOTRIPS | | | | | | | Y &INDWELL | | | | | | | STENT INSRT | | | +--------+ + + + + + Reason for Visit + + + [...] | | Urology | Diagnoses | | [place], | | | | | Ureteral | Physicians-[facility] | Andrae Simms MD | | | | | stone NEW/R | [place], [place] | [address] | | | | | URETERAL | | [place] | | | | | STONE | | [place] | | | | | Procedures | | [id number] Phone: | | | | | NEW PATIENT | | [phone] | | | | | | | Fax: | | | | | | | [phone] | +--------+--------+ + + + + Encounter Details +--------+---------+ + + + | Date | Type | Department | Care Team | Description | +--------+---------+ + + + | 07/27/ | Office | [facility] | Andrae Wilkins, | Right ureteral stone | | 2016 | Visit | [address] | [address] | (Primary Dx); | | | | [place], [place] | [place] | Hydronephrosis, | | | | [address] | [address] | right; Renal colic | | | | [phone] | | on right side; | | | | | | Acquired phimosis | +--------+---------+ + + + Social History [...] + + + | Blood Pressure | 121/60 | 07/27/2016 3:46 PM | | | | | PDT | | + + + + + | Pulse | 88 | 07/27/2016 3:46 PM | | | | | PDT | | + + + + + | Temperature | - | - | | + + + + + | Respiratory Rate | 18 | 07/27/2016 3:46 PM | | | | | PDT | | + + + + + | Oxygen Saturation | - | - | | + + + + + | Inhaled Oxygen | - | - | | | Concentration | | | | + + + + + | Weight | 149.2 kg (328 lb | 07/27/2016 3:46 PM | | | | 14.4 oz) | PDT | | + + + + + | Height | 170.2 cm (5' 7") | 07/27/2016 3:46 PM | | | | | PDT | | + + + + + | Body Mass Index | 51.51 | 07/27/2016 3:46 PM | | | | | PDT | | + + + + + documented in this encounter Patient Instructions Patient Instructions Andrae Wilkins MD - 07/27/2016 4:36 PM PDT Kidney Stones A kidney stone (nephrolithiasis) begins as tiny crystals that form inside the kidney where urine is made. Eighty percent of kidney stones are calcium stones mostly calcium oxalate but also some with calcium phosphate. Other types include uric acid stones, struvite stones (from a preceding infection), and cystine stones. When the stone breaks free and begins to move down the ureter (the narrow tube joining the kidney to the bladder) it often causes sharp back and side pain, often with nausea and vomit ing. When the stone reaches the bladder, the pain stops. Once in your bladder, the kidney st one may pass through the urethra (urinary opening) while you are urinating. If your kidney stone is still inside the kidney, there is no way to predict how long it johnathan l be before it breaks free and causes any symptoms, but it usually does not cause any pain w hile it is inside the kidney. Most stones will pass on their own within a few days or up to 3-4 weeks.You may notice a red, pink, or brown color to your urine. This is normal while p assing a kidney stone. A large stone may not pass on its own and may require special procedu res to remove it. These procedures include lithotripsy, which uses ultrasound-like waves to break up the stone; and ureteroscopy, which pushes a thin, basket-like instrument through th e urethra and bladder and into the ureter to pull out the stone. Home care The following guidelines will help you care for yourself at home: 1. Drink plenty of fluids. This increases urine flow and reduces the risk of further stone formation. Healthy adults (no heart/liver/kidney disease) who have had a kidney stone should drink 12, 8-ounce glasses of fluids per day. Most of this should be water. The goal is to p roduce 1.5 to 2 quarts of almost colorless urine per 24 hours. 2. You should collect your urine in a container and then drain it through a strainer to col lect any stones or pieces of stones. Take these to your doctor to help identify your specifi c type of stone to aid in future treatment and dietary changes. 3. Try to stay as active as possible since this will help the stone pass. Don't stay in bed unless you have pain that prevents you from getting up. 4. If you develop pain, you may take ibuprofen or naproxen for pain, unless another medicin e was prescribed. [NOTE: If you have chronic liver or kidney disease or ever had a stomach u lcer or GI bleeding, talk with your doctor before using these medicines.] Prevention Each year, there is a 5% to 10% chance that a new stone will form (50% chance over the next 5 to 7 years).The risk is higher if you have a family history of kidney stones or have ce rtain chronic illnesses such as hypertension, obesity, or diabetes.However, there are life style and dietary changes that you canmake to reduce the risk of a recurrence. Most kidney stones are made of calcium. The following is advice for preventing a recurrence of calcium stones. If you don t know the type of stone you have, follow this advice unt il the cause of your stone is determined. Things that help: The most important thing you can do is to drink plenty of fluids each day, as described above (#1). Eat more fruits and vegetables (especially those high in potassium). Eat foods high in natural citrate like fruit and fruit juices (using low sugar). Low calcium contributes to the formation of calcium type kidney stones. Eat a normal lu cium diet and speak with your doctor if you are taking calcium supplements. It may be detrim ental to reduce your calcium intake. New research shows that eating calcium-rich and oxalate -rich foods together lowers your risk of stones by binding the minerals in the stomach and i ntestines before they can reach the kidneys. Limit salt intake to 2 grams (1 teaspoon) per day. Use limited amounts when cooking, and don t add salt at the table. Processed and canned foods are usually high in salt. Spinach, rhubarb, peanuts, cashews and almonds, grapefruit and grapefruit juice are all high oxalate foods and should be reduced, or eaten with calcium rich foods (dairy, dark leaf y greens, soy products, and calcium enriched foods, among others). Reducing the amount of animal meat in your diet may lower your risk of uric acid stones. Avoid excess sugar (sucrose) and fructose (sweetener in many soft drinks) in your diet. Avoid use of Vitamin C supplements. Drink lots of water to keep urine dilute at all times. Ideally, you should drink enough water to produce 2 liters of urine every day. A low sodium, low fat, low oxalate, low animal protein diet is helpful. Also increase ci trate intake, as citrate is a stone inhibitor. Citrate can be found in alisia, oranges, pine apple, and grapefruit. Ask your primary care provider if grapefruit consumption is OK for yo u, as this particular citrus fruit may interact with some medications. Magnesiuim is also a stone inhibitor, and may help reduce the risks of kidney stones. Follow-up care Follow up with your doctor as advised by our staff. Talk to your doctor about urine and blo od tests to find out the cause of your stone. If you had an X-ray, CT scan, or other diagnostic test, it will be reviewed by a specialist . You will be notified of any new findings that may affect your care. When to seek medical care Get prompt medical attention if any of the following occur: Severe sharp back or side pain Repeated vomiting or unable to keep down fluids Weakness, dizziness, or fainting Fever of 100.4F (38C) or higher, or as directed by your health care provider Blood (pink or red color) in your urine Foul smelling or cloudy urine Unable to pass urine for 8 hours or increasing bladder pressure 5524-[address] [employer] [place] [address], [place] [address]. All righ ts reserved. This information is not intended as a substitute for professional medical care. Always follow your healthcare professional's instructions. documented in this encounter Progress Notes Andrae Wilkins MD - 07/27/2016 3:52 PM PDTFormatting of this note might be different fro m the original. Hemant is a 51 y.o. male patient referred by [facility] ER and is being seen today for [...] visit to the emergen cy room at [facility]. He states his pain starts in [...] systems is negative. He was evaluated at [facility], and CT imaging demonstrated a 7 mm stone in the proximal right ureter at the ureteropelvic junction with hydronephrosis. Because of th e large size of the stone, he is referred to my office for evaluation. I specifically asked the ER provider to make sure that Hemant remained NPO until he arrived in my office, the he reports that he had a bag of Cheetos and a soda at about 3:15 p.m. tosean lerma. Over 45 minute encounter with Hemant today, over 50% of this time spent counseling regarding his findings on imaging studies and laboratory studies, and treatment options available for his stone, including medical and surgical options, including nontreatment, and treatment of his phimosis, and dietary recommendations to reduce his risk of stones. Past Medical History He has a past medical history of High cholesterol and Kidney stones. Past Surgical History He has no past surgical history on file. Family History: His family history includes Gallstones [...] file as of 07/27/2016. REVIEW OF SYSTEMS: [] All Negative Constitutional Symptoms: []Fever []Chills []Headache []Change in appetite [] Change in weight [x] Change in energ y []Other: Neurological: []Tremors []Dizzy Spells []Numbness/Tingling []Seizures []Other: Endocrine: []Excessive thirst []Too hot [] Too cold []Tired/Sluggish Gastrointestinal: [x]Abdominal pain [x]Nausea/vomiting []Indigestion/heartburn []Change in stool size [] Linda nge in stool shape [] Change in stool color []Pain with swallowing []Other: Cardiovascular: []Chest Pain []Rapid heart rate []High blood pressure []Other: Integumentary: []Skin rash [x]Boils []Persistent itch []Other: Musculoskeletal: []Neck Pain []Joint swelling/pain []Back pain []Bone pain []Other: Respiratory: []Wheezing []Frequent cough []Shortness of breath []Other: Hematologic/Lymphatic: []Swollen glands []Blood clotting problems []Prior blood transfusions []Other: Psychologic: Are you generally satisfied with your life? yes Do you feel severely depressed? no Have you considered suicide? no Other: Habits: Do you smoke? yes [x] Yes [] No Patient advised to follow up with PCP regarding positive review of syste ms. PHYSICAL EXAM Vitals: BP 121/60 mmHg | [...] tenderness. DIAGNOSTIC DATA: CT imaging 07/27/2016 from [facility] is personally reviewed with the patien juanis. The ER did not send along a [...] pain at this time following treatment at [facility]. 4. Morbid obesity. 5. Postcircumcision phimotic foreskin deformity. I'm suspicious that this is the source o f his pyuria and bacteriuria seen on urinalysis testing. PLAN: Formal radiology CT report from [facility] has been requested. I emphasized to Hemant that he absolutely must establish care with a primary care provider [facility] for routine health maintenance. Weight loss is strongly encouraged. We discussed performing a dorsal slit procedure to try to manage his phimosis, once his sto ne disease has been treated. Elements of a kidney stone risk reduction [...] animal protein, low fat, high citrate diet. I gave Hemant a pamphlet describing kidney [...] surgical procedure and anesthesia including DVT, PE, MS, CVA, and even deat h. Hemant indicates his understanding, and indicates a desire to proceed as outlined. No guara ntees are given or implied. A surgical date is chosen. Hemant is given appropriate written and verbal preoperative instr uctions. Hemant is instructed to resume their usual and customary care with their primary care provid er. I asked Hemant to notify me if there were any difficulties voiding, or UTI symptoms, or flan k pain, or for any questions or concerns whatsoever. This document was generated in part using voice recognition software. Although I have atte mpted to edit the content, I have not thoroughly proofread this note, and podiatry professor erro rs may occur. documented in this en counter Plan of Treatment + + +--------+ + + | Name | Type | Priori | Associated Diagnoses | Order Schedule | | | | ty | | | + + +--------+ + + | Ambulatory referral | Outpatient | Today | Right ureteral | Expected: | | to Urology | Referral | | stone | 07/28/2016, Expires: | | | | | Hydronephrosis, | 07/28/2017 | | | | | right Renal colic | | | | | | on right side | | + + +--------+ + + documented as of this encounter Visit Diagnoses + + | Diagnosis | + + | Right ureteral stone - Primary Calculus of ureter | + + | Hydronephrosis, right Hydronephrosis | + + | Renal colic on right side Renal colic | + + | Acquired phimosis Redundant prepuce and phimosis | + + documented in this encounter
--- OUTSIDE RECORDS SUMMARY | ~2020-08-27 | XMS | Encounter Summary ---
Demographics + + + | Address | [address] | | | [place] [address] | + + + | Home Phone | | + + + | Preferred Language | Unknown | + + + | Marital Status | Single | + + + | Latter-Day Affiliation | 1028 | + + + [...] Team Providers + +------+ + | Care Rail Loader Name | Role | Phone | + [...] | Specialty | Sleep | Diagnoses | Fredrick | [facility] | | | Services | Medicine | MEHUL | Mitchell Kilgore | [place] [address] | | | Required | | (obstructive | MD [address] | | | | | sleep | [place] | [place], | | | | | apnea) | [facility] | [place] [address] | | | | | Procedures | [facility], [place] | Phone: | | | | | [place] [facility] | [address] | [phone] | | | | | STUDY, | Phone: | Fax: | | | | | UNATTENDED, | [phone] | [phone] | | | | | SIMUL RECORD | Fax: | | | | | | HR/O2 | [phone] | | | | | | SAT/RESP | | | | | | | FLOW/RESP | | | | | | | EFF HST | | | +--------+ + + + + + Reason for Visit +---------+ + | Reason | Comments | +---------+ + | Consult | | +---------+ + | Snoring | | +---------+ + Evaluate & Treat (Routine) +--------+ + + [...] | | Procedures | [address] [place] | [address] [place] | | | | | 01/20> PEND | [facility], [place] | [address] [place] | | | | | RETRO | [address] | [place], [place] | | | | | REFERRAL FOR | Phone: | [phone] Phone: | | | | | DOS | [phone] | [phone] | | | | | 01/06/17- | Fax: | Fax: | | | | | ELIANA / | [phone] | [phone] | | | | | AYESHA | | | | | | | OFFICE | | | | | | | NEEDS TO | | | | | | | REQUEST | | | +--------+ + + + + + Encounter Details +--------+---------+ + + + | Date | Type | Department | Care Team | Description | +--------+---------+ + + + | 01/06/ | Office | [facility] | Mitchell Alcala | MEHUL (obstructive | | 2017 | Visit | SLEEP DISORDER [address] | [address] | sleep apnea) | | | | [address] [place] | [address] [place] | (Primary Dx); Morbid | | | | [place] [address] | [place] [address] | obesity, | | | | [phone] | [phone] | unspecified obesity | | | | | | type (HCC); Smoking | +--------+---------+ + + + Social History [...] + | Blood Pressure | 148/92 | 01/06/2017 1:55 PM | | | | | PST | | + + + + + | Pulse | 105 | 01/06/2017 1:55 PM | | | | | PST | | + + + + + | Temperature | - | - | | + + + + + | Respiratory Rate | 18 | 01/06/2017 1:55 PM | | | | | PST | | + + + + + | Oxygen Saturation | 95% | 01/06/2017 1:55 PM | | | | | PST | | + + + + + | Inhaled Oxygen | - | - | | | Concentration | | | | + + + + + | Weight | 153 kg (337 lb 6.4 | 01/06/2017 1:55 PM | | | | oz) | PST | | + + + + + | Height | 167.6 cm (5' 6") | 01/06/2017 1:55 PM | | | | | PST | | + + + + + | Body Mass Index | 54.46 | 01/06/2017 1:55 PM | | | | | PST | | + + + + + [...] of this encounter Patient Instructions Patient Instructions Mitchell Alcala Jr., MD - 01/06/2017 2:32 PM PSTFormatting of this n ote might be different from the original. What Are Snoring and Obstructive Sleep Apnea? If you ve ever had a stuffed-up nose, you know the feeling of trying to breathe through a very narrow passageway. This is what happens in your throat when you snore. While you sleep , structures in your throat partially block your air passage, making the passage narrow and hard to breathe through. If the entire passage becomes blocked and you can t breathe at al l, you have sleep apnea. Air moves freely through the nose, mouth and throat. Snoring If your throat structures are too large or the muscles relax too much during sleep, the air passage may be partially blocked. As air from the nose or mouth passes around this blockage , the throat structures vibrate, causing the familiar sound of snoring. At times, this sound can be so loud that snorers wake up others, or even themselves, during the night. Snoring g ets worse as more and more of the air passage is blocked. Air is blocked in the back of the mouth and throat. Obstructive sleep apnea If the structures completely block the throat, air can t flow to the lungs at all. This i s called apnea (meaning no breathing ). Since the lungs aren t getting fresh air, the brain tells the body to wake up just enough to tighten the muscles and unblock the air pass age. With a loud gasp, breathing begins again. This process may be repeated over and over ag ain throughout the night, making your sleep fragmentedwith a structures engineer stage of sleep. Even though you do not remember waking up many times during the night to a structures engineer sleep, you fee l tired the next day. The lack of sleep and fresh air can also strain your lungs, heart, and other organs, leading to problems such as high blood pressure, heart attack, or stroke. Air may not be able to move freely past a deviated septum or swollen turbinates. Problems in the nose and jaw Problems in the structure of the nose may obstruct breathing. A crooked (deviated) septum o r swollen turbinates can make snoring worse or lead to apnea. Also, a receding jaw may make the tongue sit too far back, so it s more likely to block the airway when you re asleep. Date Last Reviewed: 05/24/201519997880-2404 [employer] [place] [id number]. All righ ts reserved. This information is not intended as a substitute for professional medical care. Always follow your healthcare professional's instructions. Monitoring Your Sleep: Home Sleep Study A home sleep study tracks and records body functions while you re asleep in your own bed. The results of the study will helpdiagnoseyour sleep problem and plan your treatment. How a home sleep study works During a sleep study, sensors attached to your body measure your breathing, oxygen level, a nd other body functions. You will be shown how to attach the sensors to your body. You may a lso have help from a optomechanical technician. At bedtime you plug the sensors into a small computer and t urn it on. In the morning, you will remove the sensors and return the computer so the result s can be studied. Tips You ll be given instructions for how to set up the sensors and the computer. Doing so johnathan l be simple. For best results: Go through the instructions during the day so you ll be ready to use the equipment at bedtime. Stick to your normal routine. Ask your healthcare provider if you should do anything dif ferently the night of the study. If you get up during the night, reconnect the sensors to the computer or to yourself cor rectly. Get as many hours of sleep as you can. Getting the results The results of your sleep study need to be scored and interpreted. Once this is done, your healthcare providerwill discuss the findings with you. The sleep study results will show w hether you have apnea. This is when your breathing stops temporarily many times during the n ight, awakening you briefly. It can also tell how severe the apnea is. The findings help y our healthcare providerknow which treatment or treatments may be the right ones for you. Date Last Reviewed: 06/15/201519996799-1427 [employer] [address] [place] [address]. All righ ts reserved. This information is not intended as a substitute for professional medical care. Always follow your healthcare professional's instructions. Continuous Positive Air Pressure (CPAP) Continuous positive air pressure (CPAP)uses gentle air pressure to hold the airway open. CPAP is often the most effective treatment for sleep apnea and severe snoring. It works very well for many people. But keep in mind that it can take several adjustments before the setu p is right for you. How CPAP works The CPAPmachine is asmall portable pump beside the bed. The pumpsends air through a h ose, which is held over your noseand mouthby a mask.Mild air pressureis gently pushe d through your airway. The air pressure nudges sagging tissues aside. This widens the airway so you can breathe better. CPAP may be combined with other kinds of therapy for sleep apnea . A mask over the nose gently directs air into the throat to keep the airway open. Types of air pressure treatments There are different types of CPAP. Your doctor or CPAP optomechanical technician will help you decide whic h type is best for you: Basic CPAPkeeps the pressure constant all night long. A bilevel device(BiPAP)providesmore pressure when you breathe in and less when you breathe out.A BiPAP machine also may be set to provide automatic breaths to maintain feliz thing if you stop breathing while sleeping. An autoCPAP deviceautomatically adjusts pressure throughout the night and in response to changes such as body position, sleep stage, and snoring. Date Last Reviewed: 06/16/201519992688-1840 [employer]. [address] [place] [address], [place] [address]. All righ ts reserved. This information is not intended as a substitute for professional medical care. Always follow your healthcare professional's instructions. documented in this encounter Progress Notes Mitchell Alcala Jr., MD - 01/06/2017 2:00 PM PSTFormatting of this note might be differen t from the original. [facility] [place] [address] Ref: Andrae Wilkins MD CC: Chief Complaint Patient presents with Consult Snoring History of the Present Illness:This is a 51 year old male who is referred for sleep medicin e consultation by Dr. Mercedes Wilkins because of possible Obstructive Sleep Apnea. Other significa nt medical issues include nephrolithiasis, obesity. The patient's records ([facility] EMR) are re viewed. The patient is interviewed and examined. He did pass a kidney stone and in r of right ureteral stent was placed. During this hospitalization nocturnal oxygen desatura tion was noted. Bedtime is usually about MN and rise time is 6am (spontaneous). He estimates a latency to s leep onset of 60 minutes. He has nocturia every hour all night long and he usually gets back to sleep easily. He frequently has night sweats. He denies nocturnal heartburn. He frequent ly awakens with a dry mouth and occasionally with morning headaches. He tosses and turns all night long. He doesn't fell rested when he awakens. He dreams in his sleep. He denies hypnagogic hallucinations. He isn't a sleep walker. He nguyen s been told that he can move about and flail about in his sleep but he isn't sure if he is d reaming. This has never resulted in injury. He doesn't think that he actually acts out dream s but he doesn't have a bedpartner. He denies sleep paralysis. He denies restlessness in his legs at night. He snores very loudly at night. He can awaken gasping and snorting from time to time. He ra rely sleeps supine. He usually sleeps on his side either on a couch or on a mat on the floor . In the daytime he feels tired and fatigued and lacking in energy. He naps about once a week and he'll sleep for several hours in the afternoon and this makes him feel only a little bi t better. He doesn't fall asleep driving. He denies cataplexy. He might consume about 44 oun monica of caffeine containing soda every day. Past Medical History: has a past medical history of High cholesterol; Kidney stones; Morbi d obesity (HCC); PPD positive (2001); HBP (high blood pressure); MEHUL (obstructive sleep apne a); and Smoking. has past surgical history that includes Cystoscopy Insertion/Removal Stent/Stone (Right, ) and Ureteroscopy (Right, 08/11/2016). No Known Allergies Current Outpatient Prescriptions Medication Sig Dispense Refill amoxicillin (AMOXIL) 500 MG capsule Take 500 mg by mouth 3 times daily. HYDROcodone-acetaminophen (NORCO) 5-325 mg per tablet Take 1 tablet by mouth every 4 ho urs as needed. 25 tablet 0 No current facility-administered medications for this visit. Past Surgical History Procedure Laterality Date Cystoscopy insertion/removal stent/stone Right 07/28/2016 Procedure: Cystoscopy, Right Ureteral Stent Placement; Surgeon: Andrae Wilkins MD; Loc ation: [facility] MAIN OR Ureteroscopy Right 08/11/2016 Procedure: Cystoscopy, Right Ureteroscopy w/ Laser Lithotripsy and Right Stent Removal; Surgeon: Andrae Wilkins MD; Location: [facility] MAIN OR Family Medical History: family history includes Gallstones in his sister and sister; Hypert ension in his mother; Other (see comment) in his sister; Prostate cancer in his father. indicated that his mother is alive. He indicated that his father is alive. He indicated jake t both of his sisters are alive. He indicated that his brother is alive. He indicated that h is daughter is alive. He indicated that his son is alive. Social History: Social History Social History Marital Status: Single Spouse Name: N/A Number of Children: N/A Years of Education: 7 Occupational History unemployed Social History Main Topics Smoking status: Current Every Day Smoker -- 1.00 packs/day Types: Cigarettes Start date: 07/27/1980 Smokeless tobacco: Never Used Alcohol Use: No Drug Use: Yes Special: Marijuana Comment: Daily - 2-4 joints a day Sexual Activity: Not Currently Other Topics Concern None Social History Narrative Lives in house in [place] with family. He just moved from [place]. Review of Systems: Constitutional: Denies unexplained fevers, chills, sweats, significant recent weight chow ge. Eyes:Denies sudden loss of vision, diplopia, blurred vision. ENT: Denies loss of hearing, vertigo, nasal or sinus congestion, bleeding gums. Has poor dental repair. Card:Denies exertional substernal chest heaviness, leg pain. Denies palpitations, orthopn ea, ankle edema, presyncope. Resp: Denies cough, wheezing, asthma, hemoptysis. 1 block dyspnea. Denies smoker's cough. GI: Denies nausea, vomiting, abdominal pain, diarrhea, constipation, hematochezia. : Denies dysuria, pyuria, hematuria, frequency, incontinence. Recent stones. MS: Some low back pain and bilateral hand pain. Neuro: Denies seizures, strokes, loss of consciousness, syncope, concussions. Psych: Mild depression from time to time. No history of abuse or severe trauma. Endocrine: Denies heat or cold intolerance Heme: Denies easy bruising or prolonged bleeding. No history of transfusions Allergic/Immunologic: Denies seasonal allergies PE: BP 148/92 mmHg | Pulse 105 | Resp 18 | Ht 1.676 m (5' 6") | Wt 153.044 kg (337 lb 6.4 o z) | BMI 54.48 kg/m2 | SpO2 95% Gen: obese and not in acute distress HEENT:Head: Normocephalic, no lesions, without obvious abnormality. Eye: Normal external eye, conjunctiva, lids cornea, ANGELINA. Nose: Normal external nose, mucus membranes and septum. Pharynx: Dental Hygiene adequate. Normal buccal mucosa. Small lower jaw structure. Mallampa ti 4. Neck / Thyroid: Supple, no masses, nodes, nodules or enlargement. Pulm: Breath sounds are a bit distant. Rhonchi diffusely which change with coughing. No tr ue wheezing. Card: regular rate and rhythm, S1, S2 normal, no murmur, click, rub or gallop GI: soft and normal bowel sounds. Morbidly obese : Not examined Rectal: Not Examined Ext: peripheral pulses normal, no clubbing or cyanosis. 1+ right ankle edema, 2+ left ankl e edema Skin:no rashes Neuro:Grossly normal Psych:age appropriate and casually dressedoriented to time, place and person, mood and aff ect are within normal limits, pt is a good historian; no memory problems were noted Heme: No cervical LN Questionnaires Review: The score of 1 on the Parkman Sleepiness scale suggests no recognize d excessive daytime sleepiness. The score of 13 on the Insomnia Severity Scale suggests that the patient has significant dissatisfaction with the quality of sleep. The score of 18 on t he Carrasquillo Depression Inventory is consistent with mild depression. The score of 3 on the Carrasquillo Anxiety Inventory suggests minimal recognized anxiety. The SF36v2 suggests moderately severe self assessed impairment on subscales physical function, role physical, body pain, general health, role emotional; no self assessed impairment on subscales vitality, social function, mental health. The patient scores slightly above the mean on the mental component scale. H e scores nearly 1-1/2 standard deviations below the mean on the physical component scale. Assessment: MEHUL: I suspect that the patient has clinically significant and possibly severe obstructive sleep apnea.I have discussed in detail the pathophysiology of Obstructive Sleep Apnea with the patient. I've discussed that during NREM sleep the skeletal muscles relax and in REM sleep the skeletal muscles are paralyzed. The muscles that support the back of the t hroat (the tongue in particular) also relax during NREM sleep and are paralyzed in REM sleep and when this occurs, the back of the throat collapses some. In some patients with a smalle r back of the throat, this can result in obstruction to the flow of air. This is fundamental ly what occurs in MEHUL. This can cause repetitive obstruction to the flow of air all night lo ng cause a person with MEHUL to awaken repeatedly at night to "open" the back of the throat. I f airflow is significantly restricted, blood oxygen levels can fall. The combination of the repetitive awakenings at night and low oxygen levels lead to numerous other physiologic abno rmalities which can result in nocturia, nocturnal heartburn, night sweats, morning dry mouth , morning headache, and daytime fatigue/sleepiness. Additionally, MEHUL can cause hypertension and it dramatically increases the risk of heart disease, heart attack, and stroke. It may p lay a causative role in obesity and AODM. Untreated MEHUL also dramatically increases the risk of fall asleep car accidents. Treatment can help with all of these issues.The various forms of treatment of MEHUL were discussed with the patient including 1) Conservative therapy which typically includes weight loss, avoidance of sleep deprivation, avoidance of alcohol, avoid ance of sedative medications, avoidance of smoking, and positional therapy (non-supine sleep ing); 2) Positive Airway Pressure therapy (which is effective in the vast majority of patien ts but compliance can be an issue); 3) Dental Appliance Therapy (which is effective for some patients, typically with mild MEHUL, but compliance is typically good); 4) Expiratory Positiv e Airway Pressure - which involves passively increasing EPAP pressures applying a "one-way" valve type device (that looks like a "bandaid") over the nares at night which can be effecti ve for very mild MEHUL; 5) Surgical intervention - including Phase I surgery (which typically involves T&A, UPPP, Genioglossus Advancement, Hyoid Suspension) and Phase II surgery (Bimand ibular-Maxillary Facial Advancement) - the surgical solution to MEHUL is complicated and typic ally involves several operations; and 6) Hypoglossal Nerve Stimulation Therapy. Morbid obesity: It is possible he may also have sleep-related hypoventilation secondary t o his obesity. We will need to keep this in mind. I have also discussed the bidirectional relationship between obstructive apnea in obesity with the patient. Weight loss could be ve ry helpful for him. Smoking: Smoking typically worsens obstructive apnea. I've encouraged him to strongly co nsider discontinuation of this. He states he has tried this in the past unsuccessfully. Nephrolithiasis: I will leave this to Dr. Wilkins of course. Lack of primary care provider: Think this is a big issue. I have advised him to try to f ind a primary care provider [place]. He states he moved from [place] within the last yea r and just hasn't gotten around to this yet. He states he is planning to try to find a [facility] care provider over the next week or so. I've told him that if he has difficulty that r office could help him if he wishes. Plan: We'll start the evaluation with a home sleep apnea test (type III). imon, Mitchell Kilgore Jr., MD - 01/06/2017 1:50 PM PSTFormatting of this note might be different from the origi nal. 01/06/17 1300 Carrasquillo Depression Inventory-II Depression Score 18 - Mild depression Insomnia Severity Index Insomnia Severity Index 13 Parkman Sleepiness Scale Sitting and reading 0 Watching TV 0 Sitting, inactive in a public place (e.g. a theatre or a meeting) 0 As a passenger in a car for an hour without a break 0 Lying down to rest in the afternoon when circumstances permit 1 Sitting and talking to someone 0 Sitting quietly after a lunch without alcohol 0 In a car, while stopped for a few minutes in traffic 0 Total score 1 SF-36v2 Score PF 40.32 RP 39.19 BP 38.21 GH 35.59 VT 55.57 SF 52.33 RE 42.24 MH 50.87 PCS 36.2 MCS 53.92 documented in th is encounter Plan of Treatment + + +--------+ + + | Name | Type | Priori | Associated Diagnoses | Order Schedule | | | | ty | | | + + +--------+ + + | Ambulatory Referral | Outpatient | Routin | MEHUL (obstructive | Ordered: 01/06/2017 | | to Sleep Studies | Referral | e | sleep apnea) | | + + +--------+ + + documented as of this encounter Visit Diagnoses + + | Diagnosis | + + | MEHUL (obstructive sleep apnea) - Primary Obstructive sleep apnea (adult) (pediatric) | + + | Morbid obesity, unspecified obesity type (HCC) | + + | Smoking Tobacco use disorder | + + documented in this encounter
--- OUTSIDE RECORDS SUMMARY | ~2020-08-27 | XMS | Encounter Summary ---
Demographics + + + | Address | [address] | | | [place] [address] | + + + | Home Phone [...] Author + + + | Author | [facility] | | | and [place] | + + + | Organization | [facility] | | | [...] Team Providers + +------+ + | Care Professor Of Environmental Engineering Name | Role | Phone | + +------+ + | No, Physician | PCP | Unavailable | + +------+ + Encounter Details +--------+ + + + + | Date | Type | Department | Care Team | Description | +--------+ + + + + | 08/02/ | Hospital | [facility] | Andrae Wilkins, | Right ureteral | | 2016 | Encounter | MED CTR XRAY [address] | MD Cornelio WH[address]FIELD | calculus | | | | [place] | [place], [place] | | | | | [place] [address] | [address] | | | | | [phone] | | | +--------+ + + + [...] | XR ABDOMEN AP | Routin | 08/02/2016 | Right ureteral | Results for this | | | e | 9:09 AM | calculus | procedure are in the | | | | PDT | | results section. | + +--------+ + + + documented in this encounter Results XR Abdomen AP (08/02/2016 9:09 AM PDT) + + | Specimen | + + | | + + + + + | Narrative | Performed At | + + + | EXAM: XR ABDOMEN 1 VW HISTORY: Right ureteral calculus | [facility] | | TECHNIQUE: Supine view of the abdomen COMPARISON: 07/28/2016 | [facility] | | FINDINGS: Interval placement of right ureteral stent in expected | [facility] | | position. Stable position of proximal [...] + + | [facility] | [address] | [place], [place] | [phone] | | [facility] | | [address] | | | - IMAGING | | | | + + + + + documented in this encounter Visit Diagnoses + + | Diagnosis | + + | Right ureteral calculus Calculus of ureter | + + documented in this encounter"
--- OUTSIDE RECORDS SUMMARY | ~2020-08-27 | XMS | Encounter Summary ---
Demographics + + + | Address | [address] | | | [place] [address] | + + + | Home Phone | | + + + | Preferred Language | Unknown | + + + | Marital Status | Single | + + + | Religion Affiliation | 1028 | + + + | Race | White | + + + | Ethnic Group | Not or | + + + Author + + + | Author | [facility] | | | and [place] | + + + | Organization | [facility] | | | [...] Team Providers + +------+ + | Care Import And Export Clerk Name | Role | Phone | + [...] | | | | | | | [place] | | | | | | | [...] Description | +--------+---------+ + + + | 07/28/ | Surgery | [facility] | Andrae Wilkins, | Cystoscopy w/ Right | | 2016 | | MED CTR OR [facility] OP | MD [address] | Ureteral Stent | | | | [address] | [place], [place] | Placement | | | | [place], [place] | [address] | | | | | [address] | | | | | | [phone] | | | +--------+---------+ + + + [...] + + + | Blood Pressure | 111/62 | 07/28/2016 7:35 AM | | | | | PDT | | + + + + + | Pulse | 83 | 07/28/2016 7:35 AM | | | | | PDT | | + + + + + | Temperature | 35.8 C (96.4 F) | 07/28/2016 7:35 AM | | | | | PDT | | + + + + + | Respiratory Rate | 20 | 07/28/2016 7:35 AM | | | | | PDT | | + + + + + | Oxygen Saturation | 92% | 07/28/2016 7:35 AM | | | | | PDT [...] time. Follow up: Call Dr Wilkins's office ([phone]) to set up your follow-up appointment or [...] Andrae Wilkins MD - 07/28/2016 9:32 [facility] INTERIM HISTORY AND [...] signed by: Andrae Wilkins, 07/28/2016 9:32 [facility] [place], Andrae Simms MD - 07/27/2016 5:12 PM PDT ADMISSION HISTORY AND PHYSICAL Hemant is a 51 y.o. male patient referred by [facility]'s ER and is being seen today [...] visit to the emergen cy room at [facility]. He states his pain starts [...] systems is negative. He was evaluated at [facility], and CT imaging demonstrated a [...] soda at about 3:15 p.m. tosean lerma. He recently moved to [place] from [place]. He works with a relative in a [employer]it. Past Medical History He has a past [...] tenderness. DIAGNOSTIC DATA: CT imaging 07/27/2016 from [facility] is personally reviewed with the patianupama olivarez. The ER did not send along a [...] pain at this time following treatment at [facility]. 4. Morbid obesity. 5. Postcircumcision [...] surgical procedure and anesthesia including DVT, PE, MD, CVA, and even deat h. Hemant indicates [...] have not thoroughly proofread this note, and tire repairman erro rs may occur. documented in this [...] ACHIEVE GOALS: 1. Medicate for pain with [place] or Morphine 2. Assist pt with preparing [...] to send pt home on O2 at [facility]. Pt s ats would drop down to [...] to wear 2 liters of O2 at [facility]. Med rec reviewed with pt and presc riptions given to pt for pain med and abtx. Pt stated he understands dc instructions and robe e O2 use. Pt was assisted out to car via w/c. lan of Care - Rosalina Caldera RN - 07/28/2016 4:57 PM PDTDischarge orders received for patient to return t o home in [place]. Patient has an order for nocturnal home oxygen. Patient preference is to go through [facility]. Oxygen orders and supporting documentation have been faxed to [facility] in [place]. This CM placed a phone call to [facility], they confirmed that they have received th e orders and will contact the patient to set up the home oxygen. I have also given the patient the phone number for [facility] so that they can also contact them once at home. Patient declines the need for any home health services. Preference form completed, signed and placed in the patients ghost chart. He has family in the room that will be his transportation home. Electronically signed by: Rosalina Ortiz, MONTRELL 07/28/2016 17:35 lan of Care - Andrae [...] ACHIEVE GOALS: 1. Medicate for pain with [place] or Morphine 2. Assist pt with preparing [...] Isidro 51 y.o. 1965 Med. Record Number: [id number] Date of Operation/Procedure: 07/28/2016 Preoperative Diagnosis: Proximal right ureteral calculus Right hydronephrosis Right renal colic Postoperative Diagnosis: Proximal right ureteral calculus Right hydronephrosis Right renal colic Surgeon: Andrae Wilkins MD Cost And Risk Analysis Manager(s): None Anesthesia Provider(s): Anesthesiologist: Enrico Simental MD [...] guidance up into the renal pelvis. A 6-Korean X 28 cm double-J stent was placed [...] Electronically Signed by: Andrae Wilkins, 07/28/2016 10:42 [facility] of [place] - Parrish Norris RN - 07/28/2016 4:34 [...] ACHIEVE GOALS: 1. Medicate for pain with [place] or Morphine 2. Assist pt with preparing [...] changes to assesement. lan of Care - Vita Bass RN - 07/27/2016 8:30 PM PDTProblem: Patient Care Overview (Adult) Goal: Care Team Goals & Evaluation PROBLEM-RELATED GOALS: 1. Pt s pain will be controlled with oral or IV medication and be kept at <4 by 07/29/16 2. Pt will be able to dc tomorrow after surgery with any issues. STRATEGY TO ACHIEVE GOALS: 1. Medicate for pain with [place] or Morphine 2. Assist pt with preparing [...] + + | Performing | Address | City/State[facility] | Phone Number | | Organization | [...] relatively stable. Dictated and Signed by: Eusebio Gary, | | | Electronically signed: 07/28/2016 9:36 [...] | | | | GREGORIA DIAZ MD ([id number]) | | | | | | on [...] for comparison only - no result from [place]. | [facility] | + + + + +---------+ + + | Performing | Address | City/State/Zipcode | Phone Number | | Organization | | | | + +---------+ + + | [facility] | | | | + +---------+ + + documented in this encounter Visit Diagnoses + + | Diagnosis | + + | Right ureteral stone Calculus of ureter | + + | Hydronephrosis, right Hydronephrosis | + + | Renal colic on right side Renal colic | + + documented in this encounter
--- OUTSIDE RECORDS SUMMARY | ~2020-08-27 | XMS | Encounter Summary ---
Demographics + + + | Address | [address] | | | [place] [address] | + + + | Home Phone | | + + + | Preferred Language | Unknown | + + + | Marital Status | Single | + + + | Amish Affiliation | 1028 | + + + | Race | White | + + + | Ethnic Group | Not or | + + + Author + + + | Author | [facility] | | | and [place] | + + + | Organization | [facility] | | | [...] Team Providers + +------+ + | Care Site Identification Specialist Name | Role | Phone | + +------+ + | No, Physician | PCP | Unavailable | + +------+ + Reason for Visit +--------+--------+ + | Reason | Onset | Comments | | | Date | | +--------+--------+ + | Other | 08/04/ | Orders for CBC need faxed to [facility] in [place] | | | 2016 | | +--------+--------+ + Encounter Details +--------+ + + + + | Date | Type | Department | Care Team | Description | +--------+ + + + + | 08/04/ | Telephone | [facility] | Andrae Wilkins, | Other (Orders for | | 2016 | | [address] | MD [address] | CBC need faxed to | | | | [place] | [place] | [facility] in | | | | [phone] | [id number] | [place]) | | | | [phone] | | | +--------+ + + + [...] Telephone Encounter - Cassi Toledo RN - 08/04/2016 1:26 PM PDTRECEIVED PHONE CALL [facility]. THEY DID NOT PUT HIS ORDERS AND DRAW HIS CBC WHEN HE WAS IN THE LAB ON 08/02/16 . THEY DID THE UA AND BMP. HE NEEDS ORDERS FOR CBC FAXED TO [facility] IN [place]. ORDER S FAXED AND PATIENT NOTIFIED TO GO IN AND HAVE IT DRAWN. I APOLOGIZED THAT IT WAS NOT DRAWN ORDERED ON 08/02/16. documented in this encounter Plan of Treatment Not on filedocumented as of this encounter Visit Diagnoses Not on filedocumented in this encounter"
--- OUTSIDE RECORDS SUMMARY | ~2020-08-27 | XMS | Encounter Summary ---
Demographics + + + | Address | [address] | | | [place] [address] | + + + | Home Phone [...] Author + + + | Author | [facility] | | | and [place] | + + + | Organization | [facility] | | | [...] Team Providers + +------+ + | Care Business Continuity Global Director Name | Role | Phone | + [...] | | | | | | | [place] | | | | | | | [...] + + | 08/11/ | Hospital | [facility] | Andrae Wilkins, | Ureteral calculus, | | 2016 | Encounter | MED CTR OR INTRA OP | MD Cornelio LUCIO [facility] | right (Primary Dx) | | | | [address] | [place] | | | | | [place] | [address] | | | | | [address] | | | | | | [phone] | | | +--------+ + + + [...] + + + | Blood Pressure | 121/65 | 08/11/2016 6:30 PM | | | | | PDT | | + + + + + | Pulse | 83 | 08/11/2016 6:30 PM | | | | | PDT | | + + + + + | Temperature | 36.4 C (97.5 F) | 08/11/2016 4:43 PM | | | | | PDT | | + + + + + | Respiratory Rate | 20 | 08/11/2016 6:00 PM | | | | | PDT | | + + + + + | Oxygen Saturation | 94% | 08/11/2016 6:30 PM | | | | | PDT [...] time. Follow up: Call Dr Wilkins's office ([phone]) to set up your follow-up appointment or [...] Andrae Burt MD - 08/11/2016 1:39 PM [facility] INTERIM HISTORY AND [...] signed by: Andrae Wilkins, 08/11/2016 13:39 [facility] [place], Andrae Simms MD - 08/02/2016 9:40 AM PDT Hemant is a 51 y.o. male patient being seen today for follow up of kidney stones. CC: 7 mm proximal right ureteral calculus HPI: Hemant experienced right renal colic on 07/25/2016. He was eventually evaluated at [facility] where CT imaging demonstrated a 7 [...] tenderness. DIAGNOSTIC DATA: CT imaging 07/27/2016 from [facility] demonstrates a 7.4 millimeter stone at [...] ECG No previous ECGs available Confirmed by GREGORIA DIAZ MD ([id number]) on 07/28/2016 9:32:23 AM IMPRESSION: 1. 7.4 [...] Obtain final urine culture testing results from [facility] 07/27/2016. I emphasized to Hemant that [...] procedure and anesthesia includin g DVT, PE, NC, CVA, and even . Hemant indicates his [...] have not thoroughly proofread this note, and compressed yeast supervisor erro rs may occur. documented in this en counter Miscellaneous Notes Op Note - Andrae Wilkins MD - 08/11/2016 4:48 PM PDTOperative Note Pt. Name/Age/: Hemant Isidro 51 y.o. 1965 Med. Record Number: [id number] Date of Operation/Procedure: 08/11/2016 Preoperative Diagnosis: Right Ureteral calculus Postoperative Diagnosis: Right Ureteral calculus Surgeon: Andrae Wilkins MD Offset Press Operator(s): None Anesthesia Provider(s): Anesthesiologist: Alden Beth DO [...] Signed by: Andrae Wilkins, 08/11/2016 16:49 [facility] documented in this en counter Plan of [...] Note | + + | Zheng Perez In - 08/12/2016 8:58 AM PDT EXAM: [...]
--- OUTSIDE RECORDS SUMMARY | ~2020-08-27 | XMS | Encounter Summary ---
Demographics + + + | Address | [address] | | | [place] [address] | + + + | Home Phone | | + + + | Preferred Language | Unknown | + + + | Marital Status | Single | + + + | Restorationist Affiliation | 1028 | + + + | Race | White | + + + | Ethnic Group | Not or | + + + Author + + + | Author | [facility] | | | and [place] | + + + | Organization | [facility] | | | and [...] Team Providers + +------+ + | Care Tongue Trimmer Name | Role | Phone | + +------+ + | No, Physician | PCP | Unavailable | + +------+ + Encounter Details +--------+ + + + + | Date | Type | Department | Care Team | Description | +--------+ + + + + | 08/02/ | Hospital | [facility] | Andrae Wilkins, | Right ureteral | | 2016 | Encounter | [facility] CTR LAB[facility]ATORY | [address] | calculus | | | | [address] [place] | [place], [place] | | | | | [place] | [id number] | | | | | [address] | | | | | | [phone] | | | +--------+ + + + [...] + | URINALYSIS, REFLEX | Routin | 08/02/2016 | Right ureteral | Results for this | | MICROSCOPIC AND/OR | e | 11:46 AM | calculus | procedure are in the | | CULTURE | | PDT | | results section. | + +--------+ + + + | CULTURE, URINE | Routin | 08/02/2016 | Right ureteral | Results for this | | | e | 11:46 AM | calculus | procedure are in the | | | | PDT | | results section. | + +--------+ + + + | BASIC METABOLIC | Routin | 08/02/2016 | Right ureteral | Results for this | | PANEL | e | 11:04 AM | calculus | procedure are in the | | | | PDT | | results section. | + +--------+ + + + documented in this encounter Results Culture, Urine (08/02/2016 11:46 AM PDT) + + + + + + | Component | Value | Ref Range | Performed | Pathologist | | | | | At | Signature | + + + + + + | Culture | >100,000 CFU/ml Mixed | | [facility] | | | | Gram Positive | | [facility] | | | | FloraComment: Suggests | | MEDICAL | | | | contamination with | | CENTER - | | | | urogenital or skin | | LABORATORY | | | | devante.No further work-up | | | | | | to follow. | | | | + + + + + + + + | Specimen | + + | Urine - Urine | | specimen (specimen) | + + + + + + + | Performing | Address | City/State/Zipcode | Phone Number | | Organization | | | | + + + + + | [facility] | [address] | [place] | [phone] | | [facility] | | [address] | | | - LABORATORY | | | | + + + + + Urinalysis, Reflex Microscopic and/or [...] - 1.030 | [facility] | | | [place], | | | [facility] | | | Urine | | | MEDICAL | | | | | | CENTER - | | | | | | LABORATORY | | + + + + + + | Protein, | 30 mg/dL (A) | Negative | [facility] | | | Urine | | | [facility] | | | | | | MEDICAL | | | | | | CENTER - | | | | | | LABORATORY | | + + + + + + | Blood, | Trace (A) | Negative | [facility] | | | Urine | | | [facility] | | [...] | | Cells, | | | [facility] | | | Urine | | | MEDICAL | | | | | | CENTER - | | | | | | LABORATORY | | + + + + + + | Budding | Few (A) | Negative | [facility] | | | Yeast, | | | [facility] | | | Urine | | | MEDICAL | | | | | | CENTER - | | | | | | LABORATORY | | + + + + + + | Urine | Urine Culture Set Up | | [facility] | | | Comment | | | [facility] | | | | | | [...] sample | [facility] | | volume | [facility] | | | [facility] | | | - LABORATORY | + + + + + + + + | Performing | Address | City/State/Zipcode | Phone Number | | Organization | | | | + + + + + | [facility] | [address] | [place] | [phone] | | [facility] | | [address] | | | - LABORATORY | | [...] | | | | | | [facility] | | | | | | MEDICAL | | | | | | CENTER - | | | | | | LABORATORY | | + + + + + + | BUN | 18 | 7 - 18 mg/dL | [facility] | | | | | | [facility] | | | | | | MEDICAL | | | | | | CENTER - | | | | | | LABORATORY | | + + + + + + | Creatinine | 1.03 | 0.60 - 1.30 | [facility] | | | | | mg/dL | [facility] | | | | | | MEDICAL | | | | | | CENTER - | | | | | | LABORATORY | | + + + + + + | eGFR, | >60Comment: GLOMERULAR | >=60 | [facility] | | | non- | FILTRATION | mL/min/1.73m2 | [facility] | | | [place] | RATE,ESTIMATED | | MEDICAL | | | | mL/min/1.74v1Cmzs than | | CENTER - | | [...] | | | | | mg/dL | [facility] | | | | | | MEDICAL | | | | | | CENTER - | | | | | | LABORATORY | | + + + + + + | BUN/Creatin | 17.5 | | [facility] | | | ine Ratio | | | [facility] | | | | | | [...] | + + + + + | [facility] | [address] | [place] | [phone] | | [facility] | | [address] | | | - LABORATORY | | | | + + + + + documented in this encounter Visit Diagnoses + + | Diagnosis | + + | Right ureteral calculus Calculus of ureter | + + documented in this encounter"
--- OUTSIDE RECORDS SUMMARY | ~2020-08-27 | XMS | Encounter Summary ---
Demographics + + + | Address | [address] | | | [place] [address] | + + + | Home Phone | | + + + | Preferred Language | Unknown | + + + | Marital Status | Single | + + + | Rastafari Affiliation | 1028 | + + + | Race | White | + + + | Ethnic Group | Not or | + + + Author + + + | Author | [facility] | | | and [place] | + + + | Organization | [facility] | | | [...] Team Providers + +------+ + | Care Vine Pruner Name | Role | Phone | + +------+ + | No, Physician | PCP | Unavailable | + +------+ + Encounter Details +--------+ + + + + | Date | Type | Department | Care Team | Description | +--------+ + + + + | 08/02/ | Orders Only | [facility] | Andrae Wilkins, | Calculus of ureter | | 2016 | | MED CTR LAB[facility]ATORY | MD [address]el[address] | (Primary Dx) | | | | [address] [place] | [place] | | | | | [place] | [address] | | | | | [address] | | | | | | [phone] | | | +--------+ + + + [...] as of this encounter Plan of Treatment + +------+--------+ + + | Name | Type | Priori | Associated Diagnoses | Order Schedule | | | | ty | | | + +------+--------+ + + | CBC with | Lab | Routin | Calculus of ureter | 1 Occurrences | | Differential | | e | | starting 08/02/2016 | | | | | | until 08/02/2017 | + +------+--------+ + + documented as of this encounter Visit Diagnoses + + | Diagnosis | + + | Calculus of ureter - Primary | + + documented in this encounter"
--- OUTSIDE RECORDS SUMMARY | ~2020-08-27 | XMS | Encounter Summary ---
Demographics + + + | Address | [address] | | | [place] [address] | + + + | Home Phone | | + + + | Preferred Language | Unknown | + + + | Marital Status | Single | + + + | Mu-Ism Affiliation | 1028 | + + + | Race | White | + + + | Ethnic Group | Not or | + + + Author + + + | Author | [facility] | | | and [place] | + + + | Organization | [facility] | | | [...] Team Providers + +------+ + | Care Global Supply Chain Vice President Name | Role | Phone | + +------+ + | No, Physician | PCP | Unavailable | + +------+ + Reason for Referral Diagnostic/Screening (Emergency) +--------+--------+ + + + + | Status | Reason | Specialty | Diagnoses / | Referred By | Referred To | | | | | Procedures | Contact | Contact | +--------+--------+ + + + + | Closed | | Radiology | Diagnoses | Clark, | | | | | | Arterial | Shiva Baker, | | | | | | insufficienc | NURSING SERVICE ADMINISTRATOR [address] | | | | | | y of lower | SAINT | | | | | | extremity | [place], | | | | | | ([facility]) | [address] | | | | | | Procedures | [place], | | | | | | VAS Lower | [place] [address] | | | | | | Extremity | Phone: | | | | | | Arteries | [phone] | | | | | | Bilateral | Fax: | | | | | | | [phone] | | +--------+--------+ + + + + Reason for Visit Diagnostic/Screening (Emergency) +--------+--------+ + + + + | Status | Reason | Specialty | Diagnoses / | Referred By | Referred To | | | | | Procedures | Contact | Contact | +--------+--------+ + + + + | Closed | | Radiology | Diagnoses | Clark, | | | | | | Arterial | Shiva Baker, | | | | | | insufficienc | NURSING SERVICE ADMINISTRATOR [address] | | | | | | y of lower | [place]INT | | | | | | extremity | [place], | | | | | | ([facility]) | [address] | | | | | | Procedures | [place], | | | | | | VAS Lower | [place] [address] | | | | | | Extremity | Phone: | | | | | | Arteries | [phone] | | | | | | Bilateral | Fax: | | | | | | | [phone] | | +--------+--------+ + + + + Encounter Details +--------+ + + + + | Date | Type | Department | Care Team | Description | +--------+ + + + + | 04/03/ | Hospital | [facility] | Shiva Rodas | Arterial | | 2020 | Encounter | [facility] | Samuel, NURSING SERVICE ADMINISTRATOR [address] | insufficiency of | | | | ULTRASOUND [address] | lower extremity | | | | [address] | [place], [place] | ([facility]) | | | | [place], [place] | [address] | | | | | [address] | | | | | | [phone] | | | +--------+ + + + [...] + + + +---------+ + + | amoxicillin | Take 500 mg by mouth | | 0 | | | | (AMOXIL) 500 MG | 3 times daily. | | | | | | capsule | | | | | | + [...] | + +--------+ + + + | VAS LOWER EXTREMITY | STAT | 04/03/2020 | Arterial | Results for this | | ARTERIES BILATERAL | | 1:46 PM | insufficiency of | procedure are in the | | | | PDT | lower extremity | results section. | | | | | (HCC) | | + +--------+ + + + documented in this encounter Results VAS Lower Extremity Arteries Bilateral (04/03/2020 1:46 PM PDT) + + | Specimen | + + | | + + + + + | Impressions | Performed At | + + + | No significant stenosis within the bilateral lower extremities. | [facility] | | Signed by: Robert Sepulveda Chet Sign Date/Time: 04/03/2020 1:57 | | | PM | | + + + + + + | Narrative | Performed At | + + + | ULTRASOUND ARTERIAL DUPLEX, BILATERAL; LOWER EXTREMITY WITH COLOR | [facility] | | DOPPLER CLINICAL INFORMATION: Arterial insufficiency noted in | | | right lower leg as opposed to the left lower leg on nida doppler | | | COMPARISON: None PROCEDURE: Duplex and color Doppler evaluation | | | of the arteries of the lower extremities. FINDINGS: Peak | | | systolic velocity and waveforms. All velocities in cm/sec. Right: | | | Common Femoral Artery: 165 and triphasic Profunda Femoral Artery: | | | 121 and triphasic Femoral Artery: Proximal: 166 and triphasic Mid: | | | 116 and triphasic Distal: 87 and triphasic Popliteal Artery: 61 and | | | triphasic Anterior Tibial Artery: 62 and triphasic Posterior Tibial | | | Artery: 84 and triphasic Peroneal Artery: 50 and triphasic | | | Left: Common Femoral Artery: 166 and triphasic Profunda Femoral | | | Artery: 94 and triphasic Femoral Artery: Proximal: 154 and triphasic | | | Mid: 122 and triphasic Distal: 110 and triphasic Popliteal Artery: | | | 77 and triphasic Anterior Tibial Artery: 85 and triphasic Posterior | | | Tibial Artery: 75 and triphasic Peroneal Artery: 44 and triphasic | | + + + + + | Procedure Note | + + | Chris, Rad Results In - 04/03/2020 2:00 PM PDT | | ULTRASOUND ARTERIAL DUPLEX, BILATERAL; LOWER EXTREMITY WITH COLOR | | DOPPLER | | | | CLINICAL INFORMATION: | | Arterial insufficiency noted in right lower leg as opposed to the left | | lower leg on nida doppler | | | | COMPARISON: | | None | | | | PROCEDURE: | | Duplex and color Doppler evaluation of the arteries of the lower | | extremities. | | | | FINDINGS: | | Peak systolic velocity and waveforms. All velocities in cm/sec. | | | | Right: | | Common Femoral Artery: 165 and triphasic | | Profunda Femoral Artery: 121 and triphasic | | Femoral Artery: | | Proximal: 166 and triphasic | | Mid: 116 and triphasic | | Distal: 87 and triphasic | | Popliteal Artery: 61 and triphasic | | Anterior Tibial Artery: 62 and triphasic | | Posterior Tibial Artery: 84 and triphasic | | Peroneal Artery: 50 and triphasic | | | | | | Left: | | Common Femoral Artery: 166 and triphasic | | Profunda Femoral Artery: 94 and triphasic | | Femoral Artery: | | Proximal: 154 and triphasic | | Mid: 122 and triphasic | | Distal: 110 and triphasic | | Popliteal Artery: 77 and triphasic | | Anterior Tibial Artery: 85 and triphasic | | Posterior Tibial Artery: 75 and triphasic | | Peroneal Artery: 44 and triphasic | | | | IMPRESSION: | | No significant stenosis within the bilateral lower extremities. | | | | | | | | Signed by: Robert Sepulveda Chet | | Sign Date/Time: 04/03/2020 1:57 PM | + + + +---------+ + + | Performing | Address | City/State/Zipcode | Phone Number | | Organization | | | | + +---------+ + + | [facility] | | | | + +---------+ + + documented in this encounter Visit Diagnoses + + | Diagnosis | + + | Arterial insufficiency of lower extremity (HCC) | + + documented in this encounter"
--- OUTSIDE RECORDS SUMMARY | ~2020-08-27 | XMS | Clinical Summary ---
Demographics + + + | Address | [address] | | | [place] [address] | + + + | Home Phone [...] Author + + + | Author | [facility] | | | and [place] | + + + | Organization | [facility] | | | [...] Team Providers + +------+ + | Care Radiologist Physician Name | Role | Phone | + +------+ + | No, Physician | PCP | Unavailable | + +------+ + Allergies [...] on file | | + + + Last Filed Vital Signs + [...] | | + + + + + Plan of Treatment + + + + + | Health Maintenance | Due Date | Last | Comments | | | | Done | | + + + + + | Hepatitis C | | | | | Screening | 5 | | | + + + + + | Vaccine: | | | | | Pneumococcal 19-64 | 1 | | | | (1 of 1 - PPSV23) | | | | + + + + + | Colorectal Cancer | | | | | Screening | 5 | | | | (Colonoscopy) | | | | + + + + + | Vaccine: Zoster (1 | | | | | of 2) | 5 | | | + + + + + | Vaccine: Influenza | | | | | (#1) | 0 | | | + + + + + | Vaccine: | | 06/28/20 | | | Dtap/Tdap/Td (2 - | 7 | 17 | | | Td) | | | | + + + [...] | | [facility] | | 06/11/ | [id number] | | - [id number]: Qty: 1 | | | [employer] | | 2018 | / | | on 07/28/2016 by Claudette | | | - [place] | | | /[id number] | | Andrae Simms MD at [facility] | | | | | | 63 | | [facility] | | | | | | | + +-------+------+ +--------+--------+--------+ Results Not on [...] | [employer] | MODA | [id number] | 01/06/20 | [phone] | | Medica | | MEDICAID HMO | HEALTH | | 16-Pre | 1 | | id | | | MDCD | | sent | | | | | | HMO OR | | | | | | + +--------+ +--------+ +---------+--------+ | [employer] | [employer] | [id number] | | [phone] | | Medica | | MEDICAID HMO | HEALTH | | 020-Pr | 1 | | id | | | MDCD | | esent | | | | | | HMO [...] [birth year] | | [address] | [address] | | 1965 | [phone] | [place] [address] | | | joshua | | | 1 (Home) | | + +--------+ +--------+ + + | Hemant Isidro | Person | Self | [birth year] | [address] | | [address] | jahaira/Mark | | 1965 | [phone] | [place] [address] | | | joshua | | | 1 (Home) | | | | | | | [phone] | | | | | | | 9 (Work) | | + +--------+ +--------+ + + Advance Directives + + + + + | Type | Date Recorded | Patient | Explanation | | | | Cost Recovery Technician | | + + + + + | Power of | | | | | Carding Supervisor | | | | + + + + + | Advance | 08/11/2016 4:59 | | | | Directive | PM | | | + + + + + + + + + + | Code Status | Date | Date | Comments | | | Activated | Inactivated | | + + + + + | Full Code | 08/11/2016 | 08/11/2016 | | | | 6:13 PM | 9:27 PM | | + + + + + + + + +---+ | | | | | + + + +---+ | Full Code | 07/27/2016 | 07/28/2016 | | | | 5:16 PM | 6:58 PM | | + + + +---+
--- OUTSIDE RECORDS SUMMARY | ~2020-08-27 | XMS | Encounter Summary ---
Demographics + + + | Address | [address] | | | [place] [address] | + + + | Home Phone | | + + + | Preferred Language | Unknown | + + + | Marital Status | Single | + + + | Bahai Affiliation | 1028 | + + + | Race | White | + + + | Ethnic Group | Not or | + + + Author + + + | Author | [facility] | | | and [place] | + + + | Organization | [facility] | | | [...] Team Providers + +------+ + | Care Aviation Project Manager Name | Role | Phone | + [...] | | Procedures | [address] | [facility] | | | | | 01/20> PEND | [place], [place] | [place] | | | | | RETRO | [address] | [place] | | | | | REFERRAL FOR | Phone: | [phone] Phone: | | | | | DOS | [phone] | [phone] | | | | | 01/06/17- | Fax: | Fax: | | | | | ELIANA / | [phone] | [phone] | | | | | A[facility] | | | | | | | OFFICE | | | | | | | NEEDS TO | | | | | | | REQUEST | | | +--------+ + + + + + Encounter Details +--------+ + + + + | Date | Type | Department | Care Team | Description | +--------+ + + + + | 08/03/ | Orders Only | [facility] | Andrae Wilkins, | Nocturnal hypoxia | | 2016 | | [address] | MD [address] | (Primary Dx) | | | | [place] | [place] | | | | | [address] | [address] | | | | | [phone] | | | +--------+ + + + [...] of this encounter Plan of Treatment + + +--------+ + + | Name | Type | Priori | Associated Diagnoses | Order Schedule | | | | ty | | | + + +--------+ + + | * [facility] - | Outpatient | Routin | Nocturnal hypoxia | Ordered: 08/03/2016 | | AMB Referral | Referral | e | | | + + +--------+ + + documented as of this encounter Visit Diagnoses + + | Diagnosis | + + | Nocturnal hypoxia - Primary Hypoxemia | + + documented in this encounter"
[~2020-08-27 16:17] MED LIST changes: +PERCOCET 5-3251 EACH PO
--- NOTE | 2020-08-28 09:14 | EKG ---
[facility] [address] [facility] [place], [place] [address] Signed Normal sinus rhythm Normal ECG When compared with ECG of 15-JUL-2020 14:12, No significant change was found Confirmed by KAT SANTANA MD ([id number]) on 08/28/2020 9:14:30 AM Electronically Signed By: KAT SANTANA MD 08/28/2014 PATIENT NAME: DAYSI WATTS Electrocardiogram DATE OF : 65 PHYSICIAN: KAT SANTANA MD REPORT #: [id number] REPORT IS CONFIDENTIAL AND NOT TO BE RELEASED WITHOUT AUTHORIZATION
== END 2020-08-27 18:35 | disposition home or self-care (01) ==
LOC: ED 16:17
DX: R55 Syncope and collapse (principal); F17.200 Nicotine dependence, unspecified, uncomplicated; Z79.82 Long term (current) use of aspirin
CPT/HCPCS: 80053; 85025; 93005; 93010; 96360; 99284-25; J7030

== ENCOUNTER 2020-09-22 05:45 | Day surgery (SDC) | payer OTHER ==
[~2020-09-22] VITALS: Ht 170.2 cm; Wt 141.4 kg
--- NOTE | ~2020-09-22 | OR ---
[facility] [address] [place], [place] [address] Draft DATE OF OPERATION: 09/22/2020 SURGEON: Josue Carias MD PREOPERATIVE DIAGNOSES: 1. Lichen sclerosis involving the penile prepuce. 2. Persistent phimosis, status post standard dorsal slit procedure. 3. Spraying of urine stream. POSTOPERATIVE DIAGNOSES: 1. Lichen sclerosis involving the penile prepuce. 2. Persistent phimosis, status post standard dorsal slit procedure. 3. Spraying of urine stream. NAMES OF PROCEDURES: 1. Diagnostic cystourethroscopy. 2. Modified dorsal slit procedure. ANESTHESIA: General. ESTIMATED BLOOD LOSS: Minimal. COMPLICATIONS: None. SPECIMENS: None. DRAINS: None. INDICATIONS FOR PROCEDURE: Mr. Isidro is a very pleasant 55-year-old gentleman, who is well known to me. He initially presented to me last year with severe phimosis with associated lichen sclerosis of the genitalia, along with balanitis of the glans penis. After conservative treatment with clobetasol cream, the patient's lichen sclerosis improved drastically; however, he was still suffering from fairly severe phimosis. Two or three months ago, he underwent a standard dorsal slit procedure, which resulted in a slightly increased PATIENT NAME: DAYSI ISIDRO OPERATIVE REPORT DATE OF : 65 REPORT #: [id number] PHYSICIAN: JOSUE CARIAS MD PCP: [facility] REPORT IS CONFIDENTIAL AND NOT TO BE RELEASED WITHOUT AUTHORIZATION [facility] [address] [place], [place] [address] Draft ability to retract his foreskin; however, it was still fairly tight. I suspect that the glans scarred a bit and stenosed during healing from the dorsal slit procedure. He presents today to undergo a modified dorsal slit procedure in hopes to completely resolve his phimosis. FINDINGS: 1. Diagnostic cystourethroscopy reveals a normal bladder with no evidence of any masses, lesions, or stones. Bilateral ureteral orifices are in their normal anatomic location effluxing clear urine. Urethroscopy revealed no evidence of any urethral stricture or stenosis. Of note, there was also no evidence of any pale mucosa or air or any evidence of involvement of lichen sclerosis of the urethra. His prostatic urethra reveals very mild lateral lobe hypertrophy with no evidence of any prostatic median lobe. 2. The aperture of the patient's prepuce is significantly wider than it was before his dorsal slit procedure, however, it was still too stenotic distally to allow for easy retraction of the residual foreskin. The patient has some old punctate areas of erythema consistent with excoriation. He also has an area of vitiligo present under his pannus, at the level of the suprapubic fat pad. Testicles are descended bilaterally and are without any palpable masses. 3. A modified dorsal slit incision was performed today. A wedge shaped incision was made on the dorsal aspect of the prepuce. This wedge shaped incision was then closed using a continuous running suture of 3-0 Vicryl suture. DESCRIPTION OF PROCEDURE: After informed consent was obtained, the patient was taken back to the operating room. [facility] operating room table, where general anesthesia was induced. He was placed in the supine position and his genitalia were prepped and draped in a standard sterile fashion. I advanced a cystoscope through the patient's urethra into his bladder. A thorough diagnostic cystoscopy and urethroscopy were then performed. Please see above findings. The patient's bladder was then mainly drained using a 14-Romanian red rubber catheter. His bladder was drained of about 380 mL. I then turned my attention to the persistently phimotic scored foreskin. There were some lichen sclerosis changes associated with the foreskin. I do not see any obvious evidence of changes associated with the glans penis. A wedge-shaped incision was made using straight clamps on the dorsal aspect of the prepuce. The clamps were kept in place for over 1 minute. The tissue was then cut from the clamps using a 15 blade. The clamps were kept in place and the top of the wedge incision near the base of the penis was then closed with one simple interrupted suture using 3-0 Vicryl. The arms of the wedge incision were then closed in a continuous running fashion, also using 3-0 Vicryl. Hemostasis was achieved quite easily with placement of the suture. The procedure was then terminated and bacitracin and dry dressings were then placed on top of the newly created wedge incision. This was followed by scrotal support dressing. The patient tolerated the procedure well, which was performed without any complication. He will now PATIENT NAME: DAYSI ISIDRO OPERATIVE REPORT DATE OF : 65 REPORT #: [id number] PHYSICIAN: JOSUE CARAIS MD PCP: LEANDRO QUEVEDO REPORT IS CONFIDENTIAL AND NOT TO BE RELEASED WITHOUT AUTHORIZATION [address] [address] [place] be transferred to the postanesthesia care unit in stable condition. DISPOSITION: I discussed the details of today's procedure with the patient and his sister. I reassured the patient that urethroscopy revealed no evidence of any abnormality or any obvious cause of the spraying of his urine stream. I also notified him that he underwent a wedge based incision of his dorsal prepuce, which should prevent stenosis during healing in the future. He will be scheduled return to clinic in three weeks for his first postoperative evaluation. He will be sent home with Percocet 7.5/325, dispense #20 as needed for pain along with cephalexin 750 mg p.o. b.i.d. for a total of 7 days. MD LON Moraes/LEFTY /[id number] Copies: ~ PATIENT NAME: DAYSI ISIDRO OPERATIVE REPORT DATE OF : 65 REPORT #: [id number] PHYSICIAN: JOSUE CARIAS MD PCP: LEANDRO QUEVEDO REPORT IS CONFIDENTIAL AND NOT TO BE RELEASED WITHOUT AUTHORIZATION
[~2020-09-22 05:45] MED LIST changes: +CLOBETASOL EMOL15 GM TOP
--- NOTE | 2020-09-22 09:08 | NUR ---
09/22/20 0908 Akanksha Adan 0249 PT ARRIVED IN PACU NON RESPONSIVE TO NOXIOUS STIMULI. REPOSITIONED IN BED WITH 3 PERSON ASSIST. [address] AT BEDSIDE TALKING TO PT. ALL QUESTIONS ANSWERED.
--- NOTE | 2020-09-22 10:45 | NUR ---
STEADY ON FEET WITH ONE PERSON STAND BY ASSIST FOR AMBULATION TO BR. PT VOIDS 350 ML PINK TINGED URINE. SCANT BLOODY DRANAGE NOTED ON GAUZE WHICH IS CHANGED AND HELD IN PLACE WITH ATHLETIC SUPPORTER. DENIES NAUSEA OR PAIN. AMBULATED BACK TO ROOM AND ASSISTED PT WITH DRESSING.
== END 2020-09-22 11:00 | disposition home or self-care (01) ==
LOC: OPS 05:45 → DS 05:45 → OPS 06:45
PROVIDERS: ATTEND Urology
PROC: 0VNTXZZ Release Prepuce, External Approach (ICD-10-PCS; principal; 2020-09-22 06:45)
PROC: 0TJB8ZZ Inspection of Bladder, Via Natural or Artificial Opening Endoscopic (ICD-10-PCS; 2020-09-22 06:45)
DX: N47.1 Phimosis (principal); N36.8 Other specified disorders of urethra; R39.198 Other difficulties with micturition; N48.0 Leukoplakia of penis; J44.9 Chronic obstructive pulmonary disease, unspecified; E66.01 Morbid (severe) obesity due to excess calories; F17.210 Nicotine dependence, cigarettes, uncomplicated; G47.33 Obstructive sleep apnea (adult) (pediatric); Z79.82 Long term (current) use of aspirin; Z79.899 Other long term (current) drug therapy; Z68.42 Body mass index [BMI] 45.0-49.9, adult
CPT/HCPCS: 00790; 00920; J0690; J1100; J1885; J2405; J2704; J3010; J7121

== ENCOUNTER 2021-02-15 11:25 | Emergency (ER) | payer OTHER ==
[~2021-02-15] VITALS: Ht 170.2 cm; Wt 158.8 kg
[2021-02-15] MEDS ORDERED: SOLARAZE100 GM TOP (12:55)
== END 2021-02-15 13:10 | disposition home or self-care (01) ==
LOC: ED 11:25
DX: M17.12 Unilateral primary osteoarthritis, left knee (principal); E78.00 Pure hypercholesterolemia, unspecified; J44.9 Chronic obstructive pulmonary disease, unspecified; F17.200 Nicotine dependence, unspecified, uncomplicated; Z79.899 Other long term (current) drug therapy; Z79.82 Long term (current) use of aspirin
CPT/HCPCS: 73560; 99283-25